=== PATIENT | male | born 1960 | race Caucasian/White ===

== ENCOUNTER 2018-03-11 12:09 | Emergency (ER) | payer MEDICARE, SELFPAY ==
[2018-03-11] VITALS (8 sets, daily range): BP systolic 133–158; BP diastolic 99–108; PULSE 91–103; RESP 12–22; TEMP 37; O2SAT 96–99; BMI 29.5
--- NOTE | 2018-03-11 12:26 | RAD_ITS ---
STUDY: X-RAY CHEST REASON FOR EXAM: Male, 58 years old. Chest pain. TECHNIQUE: Single AP portable view of the chest. COMPARISON: None. FINDINGS: The lungs are clear and expanded. There is no demonstrated pleural abnormality. Normal size heart. Normal mediastinum and lisy. Normal visualized pulmonary arteries. Normal visualized aortic arch and descending thoracic aorta. Normal visualized thoracic spine. Normal visualized ribs, clavicles, and shoulders. There is no demonstrated abnormality of the visualized soft tissue structures of the upper abdomen. RAD/Chest 1 View (Portable) IMPRESSION: Normal x-ray examination of the chest. Electronically Signed: Mckay Cody MD at 12:39 EST , Service support ,
--- NOTE | 2018-03-11 12:26 | EKG12_ITS ---
Test Reason : CHEST PAIN Blood Pressure : / mmHG Vent. Rate : 097 BPM Atrial Rate : 098 BPM P-R Int : 146 ms QRS Dur : 086 ms QT Int : 364 ms P-R-T Axes : 067 -43 047 degrees QTc Int : 462 ms Normal sinus rhythm Premature ventricular complexes Left axis deviation Abnormal ECG Confirmed by LAQUITA TRUJILLO, JEWEL ([id number]), commercial production editor MARK FARNSWORTH ([id number]) on 03/12/2018 9:02:35 AM Referred By: FINA Confirmed By:JEWEL COELHO MD
[2018-03-11] MEDS: Aspirin 81 MG TAB.CHEW 324 MG PO (12:35)
[2018-03-11] MEDS: Ipratropium/Albuterol Sulfate 3 ML AMPUL.NEB INHALATION (12:43)
[2018-03-11 12:51] LABS: Anion Gap 8 (5-15); BUN 6 mg/dL (7-18); BUN/Creat Ratio 5.3 RATIO (10-20); Calcium,Total 8.3 mg/dL (8.5-10.1); Chloride 106 mmol/L (98-107); Creatinine, Serum 1.13 mg/dL (0.70-1.30); EST Glomerular Filtration Rate 71 mL/min (>60); Est Glom Filt Rate - Afr Amer 85 mL/min (>60); Estimated Creatinine Clearance 70.39 ml/min; Glucose 137 mg/dL (74-106); Potassium 3.2 mmol/L (3.5-5.1); Sodium Level 144 mmol/L (136-145)
[2018-03-11 13:03] LABS: Absolute Lymphocyte Count 1.92 X10^3/ul (0.83-4.51); Absolute Neutrophil Count 8.7 X10^3/uL (2.0-7.7); Basophil# 0.06 X10^3/uL; Basophil% 0.5 % (0-1); Eosinophil# 0.18 X10^3/uL; Eosinophils% 1.5 % (0-5); Hematocrit 50.5 % (40-54); Hemoglobin 15.6 g/dl (13.0-16.5); Lymphocyte # 1.92 X10^3/ul (4.0); Lymphocyte % 16.4 % (19-41); Mean Corp Hgb Conc 30.9 g/gl (32-36); Mean Corpuscular Hgb 28.8 pg (27.0-32.0); Mean Corpuscular Volume 93.2 fL (80-94); Mean Platelet Vol. 9.8 fl (6.2-12.0); Monocyte# 0.82 X10^3/uL; Neutrophil % 74.5 % (47-70); POSITIVE COUNT NO; POSITIVE DIFFERENTIAL NO; POSITIVE MORPHOLOGY NO; Platelet Count 235 K/mm3 (150-450); RBC Distribution Width CV 17.6 % (11.6-14.6); RBC Distribution Width SD 58.1 fl (35.1-43.9); Red Blood Count 5.42 M/mm3 (4.6-6.2); White Blood Count 11.7 K/mm3 (4.4-11.0)
[2018-03-11 13:18] LABS: D-Dimer Quantitative (DVT/PE) 0.73 FEU/ug/m (0.27-0.49)
--- NOTE | 2018-03-11 13:24 | CT_ITS ---
STUDY: CTA CHEST REASON FOR EXAM: Male, 58 years old. Chest pain. COPD. Portable RADIATION DOSAGE (If Supplied By Facility): CTDIvol = ( 14.19 ) mGy, DLP = ( 712.00 ) mGycm TECHNIQUE: The examination was performed with the intravenous administration of 100ml ml of Isovue 370 contrast material. Post-processing of the angiographic images was performed, with multiplanar reformation and 3D reconstruction. Individualized dose optimization techniques were used for this CT. COMPARISON: None. FINDINGS: Normal enhancement of the main pulmonary artery and right and left pulmonary arteries. Normal enhancement of the bilateral peripheral pulmonary arteries. There is no demonstrated pulmonary embolism. Normal thoracic aorta and visualized great vessels. There is no demonstrated aortic dissection. Normal heart and pericardium. Normal mediastinum. Normal hilar regions. Normal visualized trachea and bronchi. The lungs are moderately hyper expanded, with flattening of the hemidiaphragms. There is evidence for mild centrilobular emphysema. There are no infiltrates. There is an 8 mm indeterminate nodule in the medial aspect of the superior segment of the left lower lobe. This needs further evaluation and follow-up. It can be seen on axial image 164 of series 2. Normal pleura. There are no pleural effusions. Normal chest wall structures. Subacute subacute nondisplaced fractures are seen of the anterior aspect of the right eighth and ninth ribs. Normal visualized upper abdomen. CT/CTA Chest W/WO Contrast IMPRESSION: Normal CTA chest examination, without a demonstrated pulmonary embolism or arterial dissection. Mild to moderate COPD. 8 mm indeterminate nodule of the left upper lobe. Suggest short interval follow-up in 3-4 months. Electronically Signed: Mckay Cody MD at 14:43 EST , Service support ,
--- NOTE | 2018-03-11 13:51 | CM.ED ---
Social Work Note Referral from Mica Esteban RN, for homelessness. Introduced self and role at [facility]. The pt reports to be living at [facility] in [place]. He has been there since Friday 03/09. Reports that he can only stay two more weeks. Claims that he and his girlfriend split up and they were living in [place], [place] and that's why he is now homeless. States that his mother lives locally in [place], but he cannot stay with her. Reports that he had lived in her back yard in a camper all summer until that did not work out any longer. The pt is not working, but receives disability of $1300/month. He also has Medicare. With this income would not qualify for Medicaid. Did encourage him to go to [facility] and discuss [facility] [place] as he is without housing. States that he intends to. Pt reports a hx of Anxiety and Depression, is on Klonopin and Celexa that are prescribed through his PCP. Denies and counseling and declines services at this time. His preferred pharmacy is [email or web address]. Pt does have a CPAP and reports that the tubing is damaged. Encourage him to seek out the company he received it from to assist. Understanding expressed. No further needs at this time. PLAN: Return to [facility] at discharge. ELENA Clinton, SERGIO
--- NOTE | 2018-03-11 15:40 | ED.VISSUMM ---
- ER Visit Summary Date of Service: 03/11/18 Chief Complaint: Chest pain History of Present Illness: The patient is a 58 M who states that approximately 1 hour prior to arrival he developed chest pain. Described as a tightness/pain in the midsternal region. He notes he felt sweaty but not short of breath denies any nausea. He states that the time of onset he was just sitting in his truck. He has been having hot flashes. He states he has had similar episodes in the past and was told it was a COPD. He reports he had a cardiac cath 3-4 years ago at an outside hospital and was told that it was negative. He continues to smoke. Previous medical problems include COPD hypertension GERD sleep apnea fatty liver anxiety depression. He denies a history of hypercholesterolemia. Physical Examination: Afebrile vital signs are stable Gen: Well-nourished well-developed Head: Normocephalic atraumatic Eyes: Perrl EOMI ENT: TMs clear no rhinorrhea moist mucous membranes Neck: Supple no lymphadenopathy no JVD nontender CVS: Regular rate rhythm no murmurs normal S1-S2 Respiratory: No distress expiratory wheeze bilaterally chest nontender Abdomen: Soft nontender nondistended normal bowel sounds no masses Back: Nontender Extremity: Nontender no edema Skin: Normal color no rash Neuro: alert orientated ?3 CN II-XII intact normal strength sensation reflexes gait cerebellar Psych: Normal affect normal mood Test Results: EKG shows a sinus rhythm at a rate of 97 with PVC. Troponin negative. Chemistry is negative. D-dimer is elevated 0.73. CT Cassidy of the chest was negative for PE or dissection. Delta troponin was obtained. Emergency Department Course and Treatment: Patient received a breathing treatment. He states that this did help. TERRENCE score of 0. No risk factors of hypertension and smoking noted. Patient will be started on prednisone. He is to use his albuterol inhaler today and tomorrow every 3-4 hours. Impression: 1. Chest pain 2. Bronchospasm This note was generated with [employer] dictation software. It may contain incorrect words, spelling, and punctuation that were not noted in review of the chart prior to signing ED Disposition - Plan for ED Patient: Disposition: Home or Assisted Living Chief Complaint: Chest Pain Instructions: ED COPD Flare Prescriptions: predniSONE tablet 40 mg PO DAILY #10 tab Referrals: Lakhwinder Lerner MD [Primary Care Provider] - 3-5 Days if not improving
== END 2018-03-11 16:33 | disposition home or self-care (01) ==
PROVIDERS: Emergency Provider Emergency Medicine; Family Provider Family Medicine; PCP Family Medicine
DX: R07.9 Chest pain, unspecified (principal); J98.01 Acute bronchospasm; I49.3 Ventricular premature depolarization; I10 Essential (primary) hypertension; J44.9 Chronic obstructive pulmonary disease, unspecified; F32.9 Major depressive disorder, single episode, unspecified; F41.9 Anxiety disorder, unspecified; F17.200 Nicotine dependence, unspecified, uncomplicated; Z79.899 Other long term (current) drug therapy
CPT/HCPCS: 71045; 71275; 80048; 84484; 85025; 85379; 93005; 94640; 99285; Q9967; A4216

== ENCOUNTER 2018-08-22 07:37 | Inpatient (IN) | payer MEDICARE, SELFPAY ==
[2018-03-11 12:10] VITALS: BMI 29.5
[2018-08-22] VITALS (14 sets, daily range): BP systolic 130–143; BP diastolic 81–96; PULSE 80–109; RESP 18–24; TEMP 36.2–37.3; O2SAT 91–98; BMI 28.9; BMI 28.5; BMI 87.8
--- NOTE | 2018-08-22 07:55 | EKG12_ITS ---
Test Reason : SOB Blood Pressure : / mmHG Vent. Rate : 080 BPM Atrial Rate : 080 BPM P-R Int : 142 ms QRS Dur : 080 ms QT Int : 386 ms P-R-T Axes : 024 -34 029 degrees QTc Int : 445 ms Normal sinus rhythm Left axis deviation Abnormal ECG Confirmed by MAGGI ROMANO ([id number]), editor farm journal SUSY WEBB ([id number]) on 08/29/2018 8:54:33 AM Referred By: FELIX Confirmed By:MAGGI ROMANO
[2018-08-22] MEDS: Albuterol 2.5 MG/3 ML VIAL.NEB. INHALATION ×4 (08:08→09:42)
[2018-08-22] MEDS: Ipratropium/Albuterol Sulfate 3 ML AMPUL.NEB INHALATION ×4 (08:08→23:45)
--- NOTE | 2018-08-22 08:09 | ED.DCSUM_ITS ---
- ER Visit Summary Date of Service: 08/22/18 Chief Complaint: Shortness of breath History of Present Illness: The patient is a 58 M with shortness of breath, cough, wheezing that started yesterday. He does have a history of COPD. He is a smoker. Patient states he is supposed to be on home oxygen but does not have any nasal cannula as he has not worn oxygen for several months. He states he is been homeless until recently. He denies chest pain. He denies fever but has had some chills. He has not been on steroids for his breathing in at least a year. Physical Examination: Blood pressure is 137/96, temperature 97.1, heart rate 108, respiratory rate 20, pulse ox 91% on room air. The time of my examination his heart rate is 85 with an O2 sat of 97% on 2 L. Patient sitting upright in bed no acute distress. He speaking full sentences. Heart is regular rate and rhythm. Lung sounds are with expiratory wheezes throughout. Abdomen is soft and nontender. Lower extremity examination was no calf tenderness or edema. Test Results: Two-view chest x-ray shows hyperinflation. Lungs are clear. EKG is sinus 80 with no acute ischemia. CBC and chemistry studies normal. Emergency Department Course and Treatment: Patient was given Solu-Medrol and aerosols. On repeat evaluation he continued to have tight expiratory wheezes throughout. He was given 2 additional albuterol treatments. At this time patient's O2 sat is 89 to 90% on 2 L nasal cannula. He is bumped up to 3 L. He continues to have wheezes. He will be admitted for COPD exacerbation. He did receive oral doxycycline. Treatment Plan: [] Disposition: Admit Impression: 1. COPD exacerbation This note was generated with [employer] software. It may contain incorrect words, spelling, and punctuation that were not noted in review of the chart prior to signing ED Disposition - Plan for ED Patient: Referrals: Lakhwinder Lerner MD [NON-STAFF] -
--- NOTE | 2018-08-22 08:28 | RAD_ITS ---
STUDY: X-RAY CHEST REASON FOR EXAM: Male, 58 years old. Cough. Shortness of breath/dyspnea. TECHNIQUE: PA and lateral views of the chest. COMPARISON: Comparison is made with prior study dated March 11, 2018. FINDINGS: Hyperinflation. The lungs are clear. There is no demonstrated pleural abnormality. Normal size heart. Normal mediastinum and lisy. Normal visualized pulmonary arteries. There is atherosclerotic tortuosity of the aortic arch and descending thoracic aorta. There is demineralization of the osseous structures. Normal visualized ribs, clavicles, and shoulders. There is no demonstrated abnormality of the visualized soft tissue structures of the upper abdomen. RAD/Chest PA and Lateral IMPRESSION: Hyperinflation. The lungs are clear. Electronically Signed: Rahul Plunkett, at 8:53 EDT , Service support ,
[2018-08-22 08:40] LABS: Absolute Neutrophil Count 6.4 X10^3/uL (2.0-7.7); Basophil# 0.11 X10^3/uL; Basophil% 1.2 % (0-1); Eosinophil# 0.55 X10^3/uL; Eosinophils% 5.9 % (0-5); Hemoglobin 16.2 g/dl (13.0-16.5); Lymphocyte % 9.7 % (19-41); Mean Corp Hgb Conc 33.1 g/gl (32-36); Mean Corpuscular Hgb 29.1 pg (27.0-32.0); Mean Corpuscular Volume 88.1 fL (80-94); Mean Platelet Vol. 9.3 fl (6.2-12.0); Neutrophil # 6.43 X10^3/uL (2.7-7.7); Neutrophil % 69.1 % (47-70); Platelet Count 213 K/mm3 (150-450); RBC Distribution Width CV 15.7 % (11.6-14.6); RBC Distribution Width SD 49.6 fl (35.1-43.9); Red Blood Count 5.56 M/mm3 (4.6-6.2); White Blood Count 9.3 K/mm3 (4.4-11.0)
[2018-08-22 08:44] LABS: POSITIVE COUNT NO; POSITIVE DIFFERENTIAL NO; POSITIVE MORPHOLOGY NO
[2018-08-22] MEDS: MethylPREDNISolone 125 MG/2 ML Vial IV (08:46)
[2018-08-22 08:48] LABS: Anion Gap 3 (5-15); BUN 9 mg/dL (7-18); BUN/Creat Ratio 7.6 RATIO (10-20); Calcium,Total 8.4 mg/dL (8.5-10.1); Chloride 105 mmol/L (98-107); Creatinine, Serum 1.19 mg/dL (0.70-1.30); EST Glomerular Filtration Rate 66 mL/min (>60); Est Glom Filt Rate - Afr Amer 80 mL/min (>60); Estimated Creatinine Clearance 66.84 ml/min; Glucose 97 mg/dL (74-106); Potassium 4.2 mmol/L (3.5-5.1); Sodium Level 139 mmol/L (136-145)
[2018-08-22] MEDS: Doxycycline 100 MG CAPSULE PO (09:35)
--- NOTE | 2018-08-22 10:05 | CPS ---
alb x2 given at this time.
[2018-08-22] MEDS: Ondansetron 4 MG/2 ML Vial IV (10:25)
--- NOTE | 2018-08-22 11:18 | HP.PCM_ITS ---
Problem List (1) COPD exacerbation Status: Acute (2) COPD (chronic obstructive pulmonary disease) Status: Chronic (3) GERD (gastroesophageal reflux disease) Status: Chronic (4) Tobacco dependence Status: Chronic History of Present Illness Date of Admission: 08/22/18 Chief Complaint: Shortness of breath The patient is a 58 year old M with history symptom for chronic obstructive pulmonary disease noncompliant with treatment due to patient being homeless for months presents with shortness of breath. Patient in addition to the shortness of breath reports nonproductive cough as well as wheezing. Patient states symptoms started 2 days prior to his admission and has gotten progressively worse. Was seen and managed in the emergency department with breathing treatment his condition however did not improve decision was therefore made to admit patient for subsequent evaluation Past Medical History Past Medical History (Chronic Problems): Chronic Problems COPD (chronic obstructive pulmonary disease) (Chronic) GERD (gastroesophageal reflux disease) (Chronic) Tobacco dependence (Chronic) Allergies No Known Allergies Allergy (Verified 08/22/18 07:37) Home Medications: Ambulatory Orders Medication Instructions Recorded Omeprazole 40 mg PO DAILY 08/22/18 Smoking Status: Current every day smoker - *Family History Paternal History Items: Cancer - from lung cancer, Heart Disease Review of Systems Constitutional: Denies: Anorexia, Chills, Fever, Night Sweats, Weight Change HEENT: Denies: Head Aches, Sinus Congestion, Sinus Drainage Cardiovascular: Denies: Chest Pain, Orthopnea, Palpitations, Paroxysmal Noc. Dyspnea Respiratory: Reports: Cough, Shortness of Breath, Wheezing Gastrointestinal: Denies: Abdominal Pain, Hematemesis, Hematochezia, Nausea, Melena, Vomiting Genitourinary: Denies: Dysuria, Frequency, Hematuria, Urgency Musculoskeletal: Denies: Joint Pain, Joint Tenderness Skin: Denies: Rash Neurological: Denies: Focal weakness, Numbness, Tingling Psychiatric: Denies: Homicidal Ideations, Suicidal Ideations Hematologic/ Lymphatic: Denies: Easy Bruising, Easy Bleeding VTE Information - Inpt Only VTE Present on Admission: No VTE Mechan Device Prophylaxis: Knee High RUTHIE Hose VTE Pharm Prophylaxis ordered?: Yes Patient Problems: Active and Suspected Problems COPD exacerbation (Acute) Objective: GENERAL: cooperative HEENT: Atraumatic; EYES; Anicteric, Normal Conjunctiva NECK; supple, normal thyroid, RESPIRATORY: Diminished to auscultation bilaterally, occasional wheezes CARDIOVASCULAR: Regular S1 S2, no audible murmurs GI: soft, non-tender, normoactive bowel sounds, : No Renal angle tenderness; EXTREMITIES: No edema, no clubbing, no cyanosis. MUSCULOSKELETAL: No Joint Tenderness; no muscle waisting NEURO: Awake; no lateralizing signs. SKIN: No Rash PSYCH; Normal affect - Physical Exam Vital Signs Temp Pulse Resp BP Pulse Ox 98.2 F 109 H 24 H 143/92 H 96 08/22/18 11:11 08/22/18 11:11 08/22/18 11:11 08/22/18 11:11 08/22/18 11:11 Oxygen Flow Rate (L/min) 2 Oxygen Delivery Method Nasal Cannula Weight: 88.8 kg Body Mass Index (BMI) 28.9 Laboratory Tests Past 24 Hrs 08/22/18 08/22/18 08:20 08:20 WBC 9.3 RBC 5.56 Hgb 16.2 Hct 49.0 MCV 88.1 MCH 29.1 MCHC 33.1 RDW 15.7 H RDW Differential 49.6 H Plt Count 213 MPV 9.3 Immature Gran % (Auto) 0.100 Neut % (Auto) 69.1 Lymph % (Auto) 9.7 L Burnet % (Auto) 14.0 H Eos % (Auto) 5.9 H Baso % (Auto) 1.2 H Absolute Neuts (auto) 6.4 Absolute Lymphs (auto) 0.90 Total Counted Not Reportable Sodium 139 Potassium 4.2 Chloride 105 Carbon Dioxide 31.0 Anion Gap 3 L BUN 9 Creatinine 1.19 Estim Creat Clear Calc 66.84 Est GFR (MDRD) Af Amer 80 Est GFR (MDRD) Non-Af 66 BUN/Creatinine Ratio 7.6 L Glucose 97 Calcium 8.4 L Assessment/Plan All Active Problems COPD exacerbation (Acute) Patient is a 58-year-old gentleman presented with shortness of breath 1. Acute respiratory insufficiency secondary to COPD with acute exacerbation 2. COPD with acute exacerbation. Admitted to the regular nursing floor managed with aerosol treatment, systemic steroids, antibiotics with azithromycin as well as supplemental oxygen titrated to keep oxygen saturation greater than 90 3. Tobacco dependence counseled on cessation, offered nicotine patch for tobacco cravings 4. GERD patient is on PPI 5. Medical noncompliance patient counseled on the need to be compliant with his medication therapy 6. [facility] prophylaxis [facility] Code Visit OBSV E&M: 46404 Initial observation care L3
--- NOTE | 2018-08-22 11:50 | CASEMGMT ---
RN CM Assessment Introduced role of RN CM to patient.? Patient is alert, oriented and able?to participate in RN CM Assessment. ?Care providers, pharmacy, and demographics verified. Presentation: SOB, Cough, Wheezing- started yesterday. +COPD, +Smoker. Admit Dx: COPD Re-Admit: No Barriers/Issues: Patient states was homeless x3 months ago, has been at current apartment x3 months. [facility]. States Some Equipment like Nebulizer in [facility] with [facility]. States PCP and other Specialist far and needs to establish Rheumatoid and Chemist [employer] here. PCP: Has an appointment with a new PCP next week at [place], Not sure which provider he will be seeing. Specialists: Pulm- Dr Bebo Sig[place], [place]. Preferred [facility]acy[facility] Insurance: [employer] [facility] PPO Rx Benefit:?Yes LNOK: Mother Shantelle Black LW/HPOA: No, Would like information Living Arrangements:? Lives alone in a apartment with 2 steps to enter ADL?s: Independent with ambulates and ADL's Transportation: Patient drives and drove self to hospital, plans to drive self on DC DME: Home O2 prn (unsure how many liters as it has been awhile since wearing it, states thinks company is called [employer]- [facility])- per google search located at [address] [place] [id number] [address][phone]) States glass bottle to it is broken and does not have the Nasal Cannula for it. CPAP, WC- states does not use but is packed away somewhere, Nebulizer-currently with Ex. HHC: None SNF: None Goal: Home, does not think gabbi need anything DC PLAN: Home with possible Home O2- may need CM coordination to get all parts to work and may need portable tank. Patient also states that he needs another order for his CPAP machine, states that he believes that he may need another sleep study done. Mica South RNCM
[2018-08-22 12:07] LABS: D-Dimer Quantitative (DVT/PE) < 0.27 FEU/ug/m (0.27-0.49)
[2018-08-22 12:56] LABS: BNP,B-Type NATRIURETIC PEPTIDE 51.6 pg/mL (0-100)
[2018-08-22] MEDS: Acetaminophen 325 MG Tablet 650 MG PO (20:07)
[2018-08-22] MEDS: guaiFENesin 1,200 MG Tablet 1200 MG PO (22:42)
[2018-08-22] MEDS: MELATONIN 3 MG TABLET PO (22:55)
[2018-08-23] VITALS (11 sets, daily range): BP systolic 124–136; BP diastolic 78–92; PULSE 71–97; RESP 16–20; TEMP 36.6–36.9; O2SAT 93–99
[2018-08-23] MEDS: Ipratropium/Albuterol Sulfate 3 ML AMPUL.NEB INHALATION ×6 (03:53→22:29)
[2018-08-23 06:01] LABS: Anion Gap 6 (5-15); BUN 14 mg/dL (7-18); BUN/Creat Ratio 10.8 RATIO (10-20); Calcium,Total 8.6 mg/dL (8.5-10.1); Chloride 104 mmol/L (98-107); EST Glomerular Filtration Rate 60 mL/min (>60); Est Glom Filt Rate - Afr Amer 73 mL/min (>60); Estimated Creatinine Clearance 61.18 ml/min; Glucose 179 mg/dL (74-106); Potassium 4.4 mmol/L (3.5-5.1); Sodium Level 140 mmol/L (136-145)
[2018-08-23 06:03] LABS: Absolute Neutrophil Count 11.9 X10^3/uL (2.0-7.7); Basophil# 0.01 X10^3/uL; Basophil% 0.1 % (0-1); Hematocrit 46.2 % (40-54); Lymphocyte % 3.9 % (19-41); Mean Corp Hgb Conc 32.5 g/gl (32-36); Mean Corpuscular Volume 86.4 fL (80-94); Mean Platelet Vol. 9.5 fl (6.2-12.0); Monocyte# 0.47 X10^3/uL; Monocyte% 3.6 % (0-10); Neutrophil # 11.91 X10^3/uL (2.7-7.7); Neutrophil % 92.2 % (47-70); Platelet Count 244 K/mm3 (150-450); RBC Distribution Width CV 15.7 % (11.6-14.6); RBC Distribution Width SD 49.4 fl (35.1-43.9); Red Blood Count 5.35 M/mm3 (4.6-6.2); White Blood Count 12.9 K/mm3 (4.4-11.0)
[2018-08-23 06:05] LABS: Differential Indicated SCAN CRITERIA MET; POSITIVE COUNT NO; POSITIVE DIFFERENTIAL YES; POSITIVE MORPHOLOGY NO
--- NOTE | 2018-08-23 08:09 | PCM.PN.HOSP ---
Patient Problems: Active and Suspected Problems COPD exacerbation (Acute) Subjective: Patient is a 58-year-old gentleman with history of tobacco dependence COPD noncompliant with therapy due to financial difficulties presented with shortness of breath and assessment of COPD with acute exacerbation was made admitted to regular nursing for further management patient still complains of difficulty breathing at rest. Physical examination demonstrates a significant wheeze Objective: GENERAL: cooperative HEENT: Atraumatic; EYES; Anicteric, Normal Conjunctiva NECK; supple, normal thyroid, RESPIRATORY: Diminished to auscultation bilaterally, with wheezes CARDIOVASCULAR: Regular S1 S2, no audible murmurs GI: soft, non-tender, normoactive bowel sounds, : No Renal angle tenderness; EXTREMITIES: No edema, no clubbing, no cyanosis. MUSCULOSKELETAL: No Joint Tenderness; NEURO: Awake; no lateralizing signs. SKIN: No Rash PSYCH; Normal affect Vitals/I&O's: Vital Signs Temp Pulse Resp BP Pulse Ox 97.9 F 71 16 131/80 H 96 08/23/18 05:00 08/23/18 05:00 08/23/18 05:00 08/23/18 05:00 08/23/18 05:00 Oxygen Flow Rate (L/min) 2 Oxygen Delivery Method Nasal Cannula Weight: 87.8 kg Body Mass Index (BMI) 28.5 Intake and Output for Last 24 Hours 08/21/18 08/22/18 08/23/18 23:59 23:59 23:59 Intake Total 1000 / 1000 350 / 350 Balance 1000 / 1000 350 / 350 Microbiology Past 72 Hours 08/22/18 12:45 Sputum, Expectorated/Coughed Gram Stain - Final Laboratory Results 08/22/18 08:20: WBC 9.3, RBC 5.56, Hgb 16.2, Hct 49.0, MCV 88.1, MCH 29.1, MCHC 33.1, RDW 15.7 H, RDW Differential 49.6 H, Plt Count 213, MPV 9.3, Immature Gran % (Auto) 0.100, Neut % (Auto) 69.1, Lymph % (Auto) 9.7 L, Stanly % (Auto) 14.0 H, Eos % (Auto) 5.9 H, Baso % (Auto) 1.2 H, Absolute Neuts (auto) 6.4, Absolute Lymphs (auto) 0.90, Total Counted Not Reportable 08/22/18 08:20: Sodium 139, Potassium 4.2, Chloride 105, Carbon Dioxide 31.0, Anion Gap 3 L, BUN 9, Creatinine 1.19, Estim Creat Clear Calc 66.84, Est GFR (MDRD) Af Amer 80, Est GFR (MDRD) Non-Af 66, BUN/Creatinine Ratio 7.6 L, Glucose 97, Calcium 8.4 L 08/22/18 08:20: B-Natriuretic Peptide 51.6 08/22/18 08:26: D-Dimer Quant (PE/DVT) < 0.27 L 08/23/18 05:20: WBC 12.9 H, RBC 5.35, Hgb 15.0, Hct 46.2, MCV 86.4, MCH 28.0, MCHC 32.5, RDW 15.7 H, RDW Differential 49.4 H, Plt Count 244, MPV 9.5, Immature Gran % (Auto) 0.200, Neut % (Auto) 92.2 H, Lymph % (Auto) 3.9 L, Stanly % (Auto) 3.6, Eos % (Auto) 0.0, Baso % (Auto) 0.1, Absolute Neuts (auto) 11.9 H, Absolute Lymphs (auto) 0.50 L, Total Counted Not Reportable 08/23/18 05:20: Sodium 140, Potassium 4.4, Chloride 104, Carbon Dioxide 30.0, Anion Gap 6, BUN 14, Creatinine 1.30, Estim Creat Clear Calc 61.18, Est GFR (MDRD) Af Amer 73, Est GFR (MDRD) Non-Af 60, BUN/Creatinine Ratio 10.8, Glucose 179 H, Calcium 8.6 Current Medications Acetaminophen (Tylenol) 650 mg PO Q6H PRN PRN PRN Reason: Mild Pain (1-3)/Temp > 100.7 F Last Admin: 08/22/18 20:07 Dose: 650 mg Al Hydroxide/Mg Hydroxide (Mylanta Ii) 30 ml PO Q6H PRN PRN PRN Reason: Gastric Burning Albuterol Sulfate (Ventolin Aerosols) 2.5 mg INHALATION Q2H PRN PRN PRN Reason: SHORTNESS OF BREATH Albuterol/Ipratropium (Duoneb) 3 ml INHALATION Q4H.RT [facility] Last Admin: 08/23/18 07:22 Dose: 3 ml Enoxaparin Sodium (Lovenox) 40 mg SC DAILY@1000 [facility] Guaifenesin (Mucinex) 1,200 mg PO BID [facility] Last Admin: 08/22/18 22:42 Dose: 1,200 mg Azithromycin 500 mg/ Dextrose 255 mls @ 250 mls/hr IV Q24 [facility] Stop: 08/24/18 11:02 Last Admin: 08/22/18 13:55 Dose: 250 mls/hr Melatonin (Melatonin) 3 mg PO QHS PRN PRN PRN Reason: INSOMNIA Last Admin: 08/22/18 22:55 Dose: 3 mg Methylprednisolone (Solu-Medrol) 40 mg IV Q8 [facility] Stop: 08/23/18 14:01 Last Admin: 08/23/18 05:17 Dose: 40 mg Nicotine (Nicoderm Cq (Pbkc)) 21 mg TRANSDERM. DAILY [facility] Last Admin: 08/22/18 23:14 Dose: 21 mg Nitroglycerin (Nitrostat) 0.4 mg SUBLINGUAL Q5M PRN PRN Reason: CARDIAC/CHEST PAIN Ondansetron HCl (Zofran) 4 mg IV Q8H PRN PRN PRN Reason: NAUSEA/VOMITING Oxycodone HCl (Oxyir) 10 mg PO Q4H PRN PRN PRN Reason: Moderate Pain (4-6/10) Pantoprazole Sodium (Protonix) 40 mg PO DAILY [facility] Prednisone () 40 mg PO DAILY@0800 [facility] Promethazine HCl (Phenergan) 25 mg IM Q6H PRN PRN PRN Reason: Breakthrough nausea/vomiting Medical Necessity - Tobacco Use Smoking Status: Current every day smoker Assessment/Plan All Active Problems COPD exacerbation (Acute) Patient is a 58-year-old gentleman presented with shortness of breath 1. Acute respiratory insufficiency secondary to COPD with acute exacerbation; not much improvement since been admitted 2. COPD with acute exacerbation. Admitted to the regular nursing floor managed with aerosol treatment, systemic steroids, antibiotics with azithromycin as well as supplemental oxygen titrated to keep oxygen saturation greater than 90 3. Tobacco dependence counseled on cessation, offered nicotine patch for tobacco cravings 4. GERD patient is on PPI 5. Medical noncompliance patient counseled on the need to be compliant with his medication therapy 6. DVT prophylaxis [place] Lovenox Code Visit OBSV E&M: 28049 Subsequent observation care L3
--- NOTE | 2018-08-23 08:15 | PN_ITS ---
Patient Problems: Active and Suspected Problems COPD exacerbation (Acute) Subjective: Patient is a 58-year-old gentleman with history of tobacco dependence COPD noncompliant with therapy due to financial difficulties presented with shortness of breath and assessment of COPD with acute exacerbation was made admitted to regular nursing for further management patient still complains of difficulty breathing at rest. Physical examination demonstrates a significant wheeze Objective: GENERAL: cooperative HEENT: Atraumatic; EYES; Anicteric, Normal Conjunctiva NECK; supple, normal thyroid, RESPIRATORY: Diminished to auscultation bilaterally, with wheezes CARDIOVASCULAR: Regular S1 S2, no audible murmurs GI: soft, non-tender, normoactive bowel sounds, : No Renal angle tenderness; EXTREMITIES: No edema, no clubbing, no cyanosis. MUSCULOSKELETAL: No Joint Tenderness; NEURO: Awake; no lateralizing signs. SKIN: No Rash PSYCH; Normal affect Vitals/I&O's: Vital Signs Temp Pulse Resp BP Pulse Ox 97.9 F 71 16 131/80 H 96 08/23/18 05:00 08/23/18 05:00 08/23/18 05:00 08/23/18 05:00 08/23/18 05:00 Oxygen Flow Rate (L/min) 2 Oxygen Delivery Method Nasal Cannula Weight: 87.8 kg Body Mass Index (BMI) 28.5 Intake and Output for Last 24 Hours 08/21/18 08/22/18 08/23/18 23:59 23:59 23:59 Intake Total 1000 / 1000 350 / 350 Balance 1000 / 1000 350 / 350 Microbiology Past 72 Hours 08/22/18 12:45 Sputum, Expectorated/Coughed Gram Stain - Final Laboratory Results 08/22/18 08:20: WBC 9.3, RBC 5.56, Hgb 16.2, Hct 49.0, MCV 88.1, MCH 29.1, MCHC 33.1, RDW 15.7 H, RDW Differential 49.6 H, Plt Count 213, MPV 9.3, Immature Gran % (Auto) 0.100, Neut % (Auto) 69.1, Lymph % (Auto) 9.7 L, Bladen % (Auto) 14.0 H, Eos % (Auto) 5.9 H, Baso % (Auto) 1.2 H, Absolute Neuts (auto) 6.4, Absolute Lymphs (auto) 0.90, Total Counted Not Reportable 08/22/18 08:20: Sodium 139, Potassium 4.2, Chloride 105, Carbon Dioxide 31.0, Anion Gap 3 L, BUN 9, Creatinine 1.19, Estim Creat Clear Calc 66.84, Est GFR (MDRD) Af Amer 80, Est GFR (MDRD) Non-Af 66, BUN/Creatinine Ratio 7.6 L, Glucose 97, Calcium 8.4 L 08/22/18 08:20: B-Natriuretic Peptide 51.6 08/22/18 08:26: D-Dimer Quant (PE/DVT) < 0.27 L 08/23/18 05:20: WBC 12.9 H, RBC 5.35, Hgb 15.0, Hct 46.2, MCV 86.4, MCH 28.0, MCHC 32.5, RDW 15.7 H, RDW Differential 49.4 H, Plt Count 244, MPV 9.5, Immature Gran % (Auto) 0.200, Neut % (Auto) 92.2 H, Lymph % (Auto) 3.9 L, Bladen % (Auto) 3.6, Eos % (Auto) 0.0, Baso % (Auto) 0.1, Absolute Neuts (auto) 11.9 H, Absolute Lymphs (auto) 0.50 L, Total Counted Not Reportable 08/23/18 05:20: Sodium 140, Potassium 4.4, Chloride 104, Carbon Dioxide 30.0, Anion Gap 6, BUN 14, Creatinine 1.30, Estim Creat Clear Calc 61.18, Est GFR ( RD) Af Amer 73, Est GFR (MDRD) Non-Af 60, BUN/Creatinine Ratio 10.8, Glucose 179 H, Calcium 8.6 Current Medications Acetaminophen (Tylenol) 650 mg PO Q6H PRN PRN PRN Reason: Mild Pain (1-3)/Temp > 100.7 F Last Admin: 08/22/18 20:07 Dose: 650 mg Al Hydroxide/Mg Hydroxide (Mylanta Ii) 30 ml PO Q6H PRN PRN PRN Reason: Gastric Burning Albuterol Sulfate (Ventolin Aerosols) 2.5 mg INHALATION Q2H PRN PRN PRN Reason: SHORTNESS OF BREATH Albuterol/Ipratropium (Duoneb) 3 ml INHALATION Q4H.RT [facility] Last Admin: 08/23/18 07:22 Dose: 3 ml Enoxaparin Sodium (Lovenox) 40 mg SC DAILY@1000 [facility] Guaifenesin (Mucinex) 1,200 mg PO BID [facility] Last Admin: 08/22/18 22:42 Dose: 1,200 mg Azithromycin 500 mg/ Dextrose 255 mls @ 250 mls/hr IV Q24 [facility] Stop: 08/24/18 11:02 Last Admin: 08/22/18 13:55 Dose: 250 mls/hr Melatonin (Melatonin) 3 mg PO QHS PRN PRN PRN Reason: INSOMNIA Last Admin: 08/22/18 22:55 Dose: 3 mg Methylprednisolone (Solu-Medrol) 40 mg IV Q8 [facility] Stop: 08/23/18 14:01 Last Admin: 08/23/18 05:17 Dose: 40 mg Nicotine (Nicoderm Cq (Pbkc)) 21 mg TRANSDERM. DAILY [facility] Last Admin: 08/22/18 23:14 Dose: 21 mg Nitroglycerin (Nitrostat) 0.4 mg SUBLINGUAL Q5M PRN PRN Reason: CARDIAC/CHEST PAIN Ondansetron HCl (Zofran) 4 mg IV Q8H PRN PRN PRN Reason: NAUSEA/VOMITING Oxycodone HCl (Oxyir) 10 mg PO Q4H PRN PRN PRN Reason: Moderate Pain (4-6/10) Pantoprazole Sodium (Protonix) 40 mg PO DAILY [facility] Prednisone () 40 mg PO DAILY@0800 [facility] Promethazine HCl (Phenergan) 25 mg IM Q6H PRN PRN PRN Reason: Breakthrough nausea/vomiting Medical Necessity - Tobacco Use Smoking Status: Current every day smoker Assessment/Plan All Active Problems COPD exacerbation (Acute) Patient is a 58-year-old gentleman presented with shortness of breath 1. Acute respiratory insufficiency secondary to COPD with acute exacerbation; not much improvement since been admitted 2. COPD with acute exacerbation. Admitted to the regular nursing floor managed with aerosol treatment, systemic steroids, antibiotics with azithromycin as well as supplemental oxygen titrated to keep oxygen saturation greater than 90 3. Tobacco dependence counseled on cessation, offered nicotine patch for tobacco cravings 4. GERD patient is on PPI 5. Medical noncompliance patient counseled on the need to be compliant with his medication therapy 6. DVT prophylaxis SC Lovenox Code Visit OBSV E&M: 15598 Subsequent observation care L3
[2018-08-23] MEDS: Acetaminophen 325 MG Tablet 650 MG PO (09:12)
[2018-08-23] MEDS: Enoxaparin 40 MG/0.4 ML Syringe SC (09:13)
[2018-08-23] MEDS: guaiFENesin 1,200 MG Tablet 1200 MG PO ×2 (09:14→20:48)
[2018-08-23] MEDS: Pantoprazole Sodium 40 MG Tablet PO (09:14)
--- NOTE | 2018-08-23 12:03 | CASEMGMT ---
[facility]. [facility] states that since patient has moved to [place] he is outside of their service area. NICHOL SHINE in to updated patient regarding [facility] not able to provide service. Ness is areeable to [employer], insurance preferred provider for oxygen needs if he qualifies. Patient states that he would like a new vulcanizer operator in [place] and provided information. Patient would like Dr. Keller/Herbert's office. Dr. Keller was consulted by hospitalist. NICHOL SHINE called Dr. Keller's office to schedule follow-up appt after discharge. Appt made for EDUCATIONAL ADVISOR Yanique Kramer for 09/06/18 at 1045. Patient also inquired about local uc architect. NICHOL SHINE provided information regarding Dr. Wallace's office. Patient denied further needs or concerns at this time.
--- NOTE | 2018-08-23 12:29 | CASEMGMT ---
SW met w/pt in regard to difficulty paying for medications, POA/LW, and alcohol use. Initially we spoke about LW/POA. Pt does want to complete but does not know who to put as POA. SW explained that when he knows, he can come back as an outpt and we can assist him with the papers, pt agreeable to this. SW gave him the blank form w/the SW rack card, to call and make an appointment. SW spoke w/pt about prescription costs. Pt states he does have coverage through his [employer] but still has to pay a percentage of the cost. SW gave pt information on [employer], [employer], and Extra Help through Medicare. SW also gave him number for [employer] if he wants to apply for Medicaid, if he qualifies for it. SW spoke w/pt about alcohol use, pt does not identify this as a problem, not interested in any referrals at this time. No further needs, SW available should any needs arise. KAREN Conway
--- NOTE | 2018-08-23 13:14 | PCM.CONS.PUL ---
Reason for Consult Date of Consultation: 08/23/18 Reason for Consultation: COPD exacerbation History of Present Illness: The patient is a 58-year-old male, with a history as outlined below, who presented to the emergency department on August 22 with complaints of shortness of breath and cough. The patient states that his girlfriend recently had a chest cold and that he believes he contracted whatever she had. He reports that he has known COPD of unknown severity and is currently prescribed Anoro and as needed albuterol on an outpatient basis. He recently relocated to this area from [place], outside of [place]. He does report that he was previously seen a closing manager there. However, it has been over a year. He does report having undergone pulmonary function testing previously. The patient does have an extensive smoking history of upwards of 2 packs/day x 30 years. He states that when he is at his baseline, that he utilizes his rescue inhaler 2 times per day. In addition to the aforementioned, the patient has known obstructive sleep apnea, but has been noncompliant with the use of nocturnal CPAP therapy. He does report that he is in need of being retested so that he can get new equipment. On presentation to the emergency department, the patient was noted to be afebrile, tachycardic and tachypneic. Initial laboratory evaluation revealed no evidence of a leukocytosis. D-dimer was negative. Chemistry profile was largely unrevealing. Plain film chest x-ray revealed hyperinflated lung wren without acute cardiopulmonary process. The patient was provided with aerosolized bronchodilators and IV Solu-Medrol. He was subsequently admitted to the medical surgical floor for ongoing management. To date, the patient has been maintained on bronchodilators, azithromycin and steroids. Infectious work-up has been unrevealing. Past Medical History Past Medical History (Chronic Problems): Chronic Problems COPD (chronic obstructive pulmonary disease) (Chronic) GERD (gastroesophageal reflux disease) (Chronic) Tobacco dependence (Chronic) Allergies No Known Allergies Allergy (Verified 08/22/18 07:37) Home Medications: Ambulatory Orders Medication Instructions Recorded Omeprazole 40 mg PO DAILY 08/22/18 Smoking Status: Current every day smoker - *Family History Paternal History Items: Cancer - from lung cancer, Heart Disease Review of Systems Constitutional: Denies: Chills, Fever Eyes: Denies: Blurred vision, Double vision HEENT: Denies: Head Aches, Sinus Congestion, Sinus Drainage Cardiovascular: Reports: Chest Tightness Respiratory: Reports: Cough, Shortness of Breath, Wheezing. Denies: Sputum production Gastrointestinal: Denies: Abdominal Pain, Nausea, Vomiting Genitourinary: Denies: Dysuria Musculoskeletal: Denies: Joint Pain, Joint Tenderness Skin: Denies: Rash, Wounds Neurological: Denies: Numbness, Tingling, Focal weakness Psychiatric: Denies: Anxiety, Depression, Homicidal Ideations, Suicidal Ideations Hematologic/ Lymphatic: Denies: Easy Bruising, Easy Bleeding Patient Problems: Active and Suspected Problems COPD exacerbation (Acute) Objective: The patient's most recent lab work, culture data and imaging studies have all been personally reviewed. - Physical Exam General: Alert, Oriented x3, Cooperative, No apparent distress HEENT: Atraumatic, PERRLA, Normocephalic Oral: No Gingival or Mucosal Lesions/ Ulcerations Neck: Supple, No Nodes, Trachea Midline Lungs: Diminished, - - Bilateral expiratory wheezes with prolonged expiratory phase. Cardiovascular: Regular rate, Regular Rhythm, Normal S1, Normal S2, No murmurs Abdomen: Bowel Sounds Present, Soft, Non Tender Extremities: No clubbing, No cyanosis, No edema Skin: No breakdown Musculoskeletal: No Tenderness to Palpation of Joints or Extremities Lymphatic: No Cervical, Supraclavicular, or Inguinal Adenopathy Neurological: Cranial nerves II-XII grossly intact, Neuro grossly intact Psych/Mental Status: Alert and oriented to time, place, person, mood and affect Vital Signs Temp Pulse Resp BP Pulse Ox 98.0 F 96 18 131/88 H 94 08/23/18 11:46 08/23/18 11:46 08/23/18 11:46 08/23/18 11:46 08/23/18 11:46 Oxygen Flow Rate (L/min) 2 Oxygen Delivery Method Nasal Cannula Weight: 193 lb 9.054 oz Body Mass Index (BMI) 28.5 Intake and Output for Last 24 Hours 08/21/18 08/22/18 08/23/18 23:59 23:59 23:59 Intake Total 1000 / 1000 1036 / 1036 Balance 1000 / 1000 1036 / 1036 Microbiology Past 72 Hours 08/22/18 12:45 Gram Stain - Final Sputum, Expectorated/Coughed Respiratory Culture - Preliminary Appears to be normal respiratory sammie. Further studies to follow. Laboratory Tests Past 24 Hrs 08/23/18 08/23/18 05:20 05:20 WBC 12.9 H RBC 5.35 Hgb 15.0 Hct 46.2 MCV 86.4 MCH 28.0 MCHC 32.5 RDW 15.7 H RDW Differential 49.4 H Plt Count 244 MPV 9.5 Immature Gran % (Auto) 0.200 Neut % (Auto) 92.2 H Lymph % (Auto) 3.9 L Howell % (Auto) 3.6 Eos % (Auto) 0.0 Baso % (Auto) 0.1 Absolute Neuts (auto) 11.9 H Absolute Lymphs (auto) 0.50 L Total Counted Not Reportable Sodium 140 Potassium 4.4 Chloride 104 Carbon Dioxide 30.0 Anion Gap 6 BUN 14 Creatinine 1.30 Estim Creat Clear Calc 61.18 Est GFR (MDRD) Af Amer 73 Est GFR (MDRD) Non-Af 60 BUN/Creatinine Ratio 10.8 Glucose 179 H Calcium 8.6 Clinical Impression(s) from Imaging Studies Chest X-Ray 08/22/18 08:28 IMPRESSION: Hyperinflation. The lungs are clear. Electronically Signed: Rahul Dimitrios, at 8:53 EDT , Service support , Assessment/Plan All Active Problems COPD exacerbation (Acute) RECOMMENDATIONS: 1. Check respiratory viral panel. 2. Given negative sputum culture, antibiotics can be discontinued from my perspective. 3. Continue scheduled bronchodilators and steroids. 4. Wean supplemental oxygen to maintain saturations at or above 90%. 5. Perform walking oximetry study prior to consideration for discharge from the hospital. 6. Follow-up in the pulmonary medicine clinic within 2 weeks of discharge. IMPRESSIONS: 1. Acute hypoxemic respiratory insufficiency secondary to COPD with exacerbation Most likely viral in etiology. Sputum culture has not revealed any growth to date. Given this, antibiotics can be discontinued from my perspective. We will check respiratory viral panel. Continue current supportive measures with bronchodilators and steroids. Wean supplemental oxygen as tolerated. We will obtain the patient's prior pulmonology records once he follows up in our office. He will require repeat pulmonary function studies and will likely require an escalation in his maintenance inhaler regimen to that of a triple therapy regimen. At the time of discharge, recommend steroid taper. 2. Continuous tobacco dependency The patient was counseled regarding the deleterious effects of ongoing tobacco use, including modalities which could be utilized to achieve a smoke-free lifestyle. Given the patient's age and tobacco abuse history, he would be a candidate for yearly low-dose CT scan of the chest. Orders can be placed at his follow-up office visit. 3. Personal history of obstructive sleep apnea The patient does report having undergone a sleep study previously and for period of time was prescribed nocturnal CPAP therapy with supplemental oxygen bleeding. However, he is unclear of what his prior settings were. He does report that he has been noncompliant with its use for quite some time and is in need of a new prescription. I did explain to the patient that he would likely need to undergo a re-titration study so that updated settings could be obtained and new equipment ordered. This, again, will need to be accomplished on an outpatient basis. This note was generated with [employer] dictation software. It may contain incorrect words, spelling, and punctuation that were not noted in checking the note before signing. Code Visit Inpatient E&M: 62300 Init Hosp L2
--- NOTE | 2018-08-23 13:17 | CON.PCM_ITS ---
Reason for Consult Date of Consultation: 08/23/18 Reason for Consultation: COPD exacerbation History of Present Illness: The patient is a 58-year-old male, with a history as outlined below, who presented to the emergency department on August 22 with complaints of shortness of breath and cough. The patient states that his girlfriend recently had a chest cold and that he believes he contracted whatever she had. He reports that he has known COPD of unknown severity and is currently prescribed Anoro and as needed albuterol on an outpatient basis. He recently relocated to this area from [place], outside of [place]. He does report that he was previously seen a plastic molder there. However, it has been over a year. He does report having undergone pulmonary function testing previously. The patient does have an extensive smoking history of upwards of 2 packs/day x 30 years. He states that when he is at his baseline, that he utilizes his rescue inhaler 2 times per day. In addition to the aforementioned, the patient has known obstructive sleep apnea, but has been noncompliant with the use of nocturnal CPAP therapy. He does report that he is in need of being retested so that he can get new equipment. On presentation to the emergency department, the patient was noted to be afeb rile, tachycardic and tachypneic. Initial laboratory evaluation revealed no evidence of a leukocytosis. D-dimer was negative. Chemistry profile was largely unrevealing. Plain film chest x-ray revealed hyperinflated lung wren without acute cardiopulmonary process. The patient was provided with aerosolized bronchodilators and IV Solu-Medrol. He was subsequently admitted to the medical surgical floor for ongoing management. To date, the patient has been maintained on bronchodilators, azithromycin and steroids. Infectious work-up has been unrevealing. Past Medical History Past Medical History (Chronic Problems): Chronic Problems COPD (chronic obstructive pulmonary disease) (Chronic) GERD (gastroesophageal reflux disease) (Chronic) Tobacco dependence (Chronic) Allergies No Known Allergies Allergy (Verified 08/22/18 07:37) Home Medications: Ambulatory Orders Medication Instructions Recorded Omeprazole 40 mg PO DAILY 08/22/18 Smoking Status: Current every day smoker - *Family History Paternal History Items: Cancer - from lung cancer, Heart Disease Review of Systems Constitutional: Denies: Chills, Fever Eyes: Denies: Blurred vision, Double vision HEENT: Denies: Head Aches, Sinus Congestion, Sinus Drainage Cardiovascular: Reports: Chest Tightness Respiratory: Reports: Cough, Shortness of Breath, Wheezing. Denies: Sputum production Gastrointestinal: Denies: Abdominal Pain, Nausea, Vomiting Genitourinary: Denies: Dysuria Musculoskeletal: Denies: Joint Pain, Joint Tenderness Skin: Denies: Rash, Wounds Neurological: Denies: Numbness, Tingling, Focal weakness Psychiatric: Denies: Anxiety, Depression, Homicidal Ideations, Suicidal Ideations Hematologic/ Lymphatic: Denies: Easy Bruising, Easy Bleeding Patient Problems: Active and Suspected Problems COPD exacerbation (Acute) Objective: The patient's most recent lab work, culture data and imaging studies have all been personally reviewed. - Physical Exam General: Alert, Oriented x3, Cooperative, No apparent distress HEENT: Atraumatic, PERRLA, Normocephalic Oral: No Gingival or Mucosal Lesions/ Ulcerations Neck: Supple, No Nodes, Trachea Midline Lungs: Diminished, - - Bilateral expiratory wheezes with prolonged expiratory phase. Cardiovascular: Regular rate, Regular Rhythm, Normal S1, Normal S2, No murmurs Abdomen: Bowel Sounds Present, Soft, Non Tender Extremities: No clubbing, No cyanosis, No edema Skin: No breakdown Musculoskeletal: No Tenderness to Palpation of Joints or Extremities Lymphatic: No Cervical, Supraclavicular, or Inguinal Adenopathy Neurological: Cranial nerves II-XII grossly intact, Neuro grossly intact Psych/Mental Status: Alert and oriented to time, place, person, mood and affect Vital Signs Temp Pulse Resp BP Pulse Ox 98.0 F 96 18 131/88 H 94 08/23/18 11:46 08/23/18 11:46 08/23/18 11:46 08/23/18 11:46 08/23/18 11:46 Oxygen Flow Rate (L/min) 2 Oxygen Delivery Method Nasal Cannula Weight: 193 lb 9.054 oz Body Mass Index (BMI) 28.5 Intake and Output for Last 24 Hours 08/21/18 08/22/18 08/23/18 23:59 23:59 23:59 Intake Total 1000 / 1000 1036 / 1036 Balance 1000 / 1000 1036 / 1036 Microbiology Past 72 Hours 08/22/18 12:45 Gram Stain - Final Sputum, Expectorated/Coughed Respiratory Culture - Preliminary Appears to be normal respiratory sammie. Further studies to follow. Laboratory Tests Past 24 Hrs 08/23/18 08/23/18 05:20 05:20 WBC 12.9 H RBC 5.35 Hgb 15.0 Hct 46.2 MCV 86.4 MCH 28.0 MCHC 32.5 RDW 15.7 H RDW Differential 49.4 H Plt Count 244 MPV 9.5 Immature Gran % (Auto) 0.200 Neut % (Auto) 92.2 H Lymph % (Auto) 3.9 L Snyder % (Auto) 3.6 Eos % (Auto) 0.0 Baso % (Auto) 0.1 Absolute Neuts (auto) 11.9 H Absolute Lymphs (auto) 0.50 L Total Counted Not Reportable Sodium 140 Potassium 4.4 Chloride 104 Carbon Dioxide 30.0 Anion Gap 6 BUN 14 Creatinine 1.30 Estim Creat Clear Calc 61.18 Est GFR (MDRD) Af Amer 73 Est GFR (MDRD) Non-Af 60 BUN/Creatinine Ratio 10.8 Glucose 179 H Calcium 8.6 Clinical Impression(s) from Imaging Studies Chest X-Ray 08/22/18 08:28 IMPRESSION: Hyperinflation. The lungs are clear. Electronically Signed: Rahul Dimitrios, at 8:53 EDT , Service support , Assessment/Plan All Active Problems COPD exacerbation (Acute) RECOMMENDATIONS: 1. Check respiratory viral panel. 2. Given negative sputum culture, antibiotics can be discontinued from my perspective. 3. Continue scheduled bronchodilators and steroids. 4. Wean supplemental oxygen to maintain saturations at or above 90%. 5. Perform walking oximetry study prior to consideration for discharge from the hospital. 6. Follow-up in the pulmonary medicine clinic within 2 weeks of discharge. IMPRESSIONS: 1. Acute hypoxemic respiratory insufficiency secondary to COPD with exacerbation Most likely viral in etiology. Sputum culture has not revealed any growth to date. Given this, antibiotics can be discontinued from my perspective. We will check respiratory viral panel. Continue current supportive measures with bronchodilators and steroids. Wean supplemental oxygen as tolerated. We will obtain the patient's prior pulmonology records once he follows up in our office. He will require repeat pulmonary function studies and will likely require an escalation in his maintenance inhaler regimen to that of a triple therapy regimen. At the time of discharge, recommend steroid taper. 2. Continuous tobacco dependency The patient was counseled regarding the deleterious effects of ongoing tobacco use, including modalities which could be utilized to achieve a smoke-free lifestyle. Given the patient's age and tobacco abuse history, he would be a candidate for yearly low-dose CT scan of the chest. Orders can be placed at his follow-up office visit. 3. Personal history of obstructive sleep apnea The patient does report having undergone a sleep study previously and for period of time was prescribed nocturnal CPAP therapy with supplemental oxygen bleeding. However, he is unclear of what his prior settings were. He does report that he has been noncompliant with its use for quite some time and is in need of a new prescription. I did explain to the patient that he would likely need to undergo a re-titration study so that updated settings could be obtained and new equipment ordered. This, again, will need to be accomplished on an outpatient basis. This note was generated with [employer] dictation software. It may contain incorrect words, spelling, and punctuation that were not noted in checking the note before signing. Code Visit Inpatient E&M: 54021 Init Hosp L2
[2018-08-23] MEDS: 0.9% NaCl Peripheral Flush Adult/Peds IV (15:03)
[2018-08-24] VITALS (8 sets, daily range): BP systolic 134–141; BP diastolic 91–100; PULSE 78–89; RESP 16–20; TEMP 36.7–37.1; O2SAT 93–98
[2018-08-24] MEDS: Ipratropium/Albuterol Sulfate 3 ML AMPUL.NEB INHALATION ×3 (02:10→11:14)
--- NOTE | 2018-08-24 07:37 | PCM.PN.PUL ---
Patient Problems: Active and Suspected Problems COPD exacerbation (Acute) Subjective: The patient was seen and examined at the bedside this morning. Events from the last 24 hours have been reviewed. The patient is currently afebrile, hemodynamically stable and maintaining appropriate oxygen saturations on room air at rest. The patient reports that he continues to feel crummy with continued shortness of breath and wheezing. Objective: The patient's most recent lab work, culture data and imaging studies have all been personally reviewed. Sputum culture appears to be normal respiratory sammie. Respiratory viral panel is pending. - Physical Exam General: Alert, Oriented x3, Cooperative, No apparent distress HEENT: Atraumatic, PERRLA, Normocephalic Oral: Moist Mucosa, No Gingival or Mucosal Lesions/ Ulcerations Neck: Supple, No Nodes, Trachea Midline Lungs: Diminished, Wheezes, - - Prolonged expiratory phase. Cardiovascular: Regular rate, Regular Rhythm, Normal S1, Normal S2, No murmurs Abdomen: Bowel Sounds Present, Soft, Non Tender, Non-Distended Extremities: No clubbing, No cyanosis, No edema Skin: No breakdown Musculoskeletal: No Tenderness to Palpation of Joints or Extremities Lymphatic: No Cervical, Supraclavicular, or Inguinal Adenopathy Neurological: Cranial nerves II-XII grossly intact, Neuro grossly intact Psych/Mental Status: Normal Affect, Appropriate Vital Signs Temp Pulse Resp BP Pulse Ox 98.3 F 78 18 138/91 H 98 08/24/18 02:49 08/24/18 06:58 08/24/18 06:58 08/24/18 02:49 08/24/18 06:59 Oxygen Flow Rate (L/min) 2 Oxygen Delivery Method Nasal Cannula Weight: 193 lb 9.054 oz Body Mass Index (BMI) 28.5 Intake and Output for Last 24 Hours 08/22/18 08/23/18 08/24/18 23:59 23:59 23:59 Intake Total 1000 / 1000 1536 / 1536 680 / 680 Balance 1000 / 1000 1536 / 1536 680 / 680 Microbiology Past 72 Hours 08/22/18 12:45 Gram Stain - Final Sputum, Expectorated/Coughed Respiratory Culture - Preliminary Appears to be normal respiratory sammie. Further studies to follow. Labs (Last 48 Hours) 08/22/18 08/22/18 08/22/18 08:20 08:20 08:20 WBC 9.3 RBC 5.56 Hgb 16.2 Hct 49.0 MCV 88.1 MCH 29.1 MCHC 33.1 RDW 15.7 H RDW Differential 49.6 H Plt Count 213 MPV 9.3 Immature Gran % (Auto) 0.100 Neut % (Auto) 69.1 Lymph % (Auto) 9.7 L [place] % (Auto) 14.0 H Eos % (Auto) 5.9 H Baso % (Auto) 1.2 H Absolute Neuts (auto) 6.4 Absolute Lymphs (auto) 0.90 Total Counted Not Reportable D-Dimer Quant (PE/DVT) Sodium 139 Potassium 4.2 Chloride 105 Carbon Dioxide 31.0 Anion Gap 3 L BUN 9 Creatinine 1.19 Estim Creat Clear Calc 66.84 Est GFR (MDRD) Af Amer 80 Est GFR (MDRD) Non-Af 66 BUN/Creatinine Ratio 7.6 L Glucose 97 Calcium 8.4 L B-Natriuretic Peptide 51.6 08/22/18 08/23/18 08/23/18 08:26 05:20 05:20 WBC 12.9 H RBC 5.35 Hgb 15.0 Hct 46.2 MCV 86.4 MCH 28.0 MCHC 32.5 RDW 15.7 H RDW Differential 49.4 H Plt Count 244 MPV 9.5 Immature Gran % (Auto) 0.200 Neut % (Auto) 92.2 H Lymph % (Auto) 3.9 L [place] % (Auto) 3.6 Eos % (Auto) 0.0 Baso % (Auto) 0.1 Absolute Neuts (auto) 11.9 H Absolute Lymphs (auto) 0.50 L Total Counted Not Reportable D-Dimer Quant (PE/DVT) < 0.27 L Sodium 140 Potassium 4.4 Chloride 104 Carbon Dioxide 30.0 Anion Gap 6 BUN 14 Creatinine 1.30 Estim Creat Clear Calc 61.18 Est GFR (MDRD) Af Amer 73 Est GFR (MDRD) Non-Af 60 BUN/Creatinine Ratio 10.8 Glucose 179 H Calcium 8.6 B-Natriuretic Peptide Microbiology 08/22/18 12:45 Sputum, Expectorated/Coughed Gram Stain - Final 08/22/18 12:45 Sputum, Expectorated/Coughed Respiratory Culture - Preliminary Appears to be normal respiratory sammie. Further studies to follow. Clinical Impression(s) from Imaging Studies Chest X-Ray 08/22/18 08:28 IMPRESSION: Hyperinflation. The lungs are clear. Electronically Signed: Rahul Plunkett, at 8:53 EDT , Service support , Medical Necessity - Tobacco Use Smoking Status: Current every day smoker Assessment/Plan All Active Problems COPD exacerbation (Acute) RECOMMENDATIONS: 1. Given negative sputum culture, antibiotics can be discontinued from my perspective. 2. Continue scheduled bronchodilators and steroids. Recommend prednisone taper at discharge. 3. Wean supplemental oxygen to maintain saturations at or above 90%. 4. Perform walking oximetry study prior to consideration for discharge from the hospital. 5. Follow-up in the pulmonary medicine clinic within 2 weeks of discharge. IMPRESSIONS: 1. Acute hypoxemic respiratory insufficiency secondary to COPD with exacerbation Most likely viral in etiology. Sputum culture has not revealed any growth to date. Given this, antibiotics can be discontinued from my perspective. Respiratory viral panel is pending. Continue current supportive measures with bronchodilators and steroids. Wean supplemental oxygen as tolerated. We will obtain the patient's prior pulmonology records once he follows up in our office. He will require repeat pulmonary function studies and will likely require an escalation in his maintenance inhaler regimen to that of a triple therapy regimen. At the time of discharge, recommend steroid taper. 2. Continuous tobacco dependency The patient was counseled regarding the deleterious effects of ongoing tobacco use, including modalities which could be utilized to achieve a smoke-free lifestyle. Given the patient's age and tobacco abuse history, he would be a candidate for yearly low-dose CT scan of the chest. Orders can be placed at his follow-up office visit. 3. Personal history of obstructive sleep apnea The patient does report having undergone a sleep study previously and for period of time was prescribed nocturnal CPAP therapy with supplemental oxygen bleeding. However, he is unclear of what his prior settings were. He does report that he has been noncompliant with its use for quite some time and is in need of a new prescription. I did explain to the patient that he would likely need to undergo a re-titration study so that updated settings could be obtained and new equipment ordered. This, again, will need to be accomplished on an outpatient basis. This note was generated with [employer] software. It may contain incorrect words, spelling, and punctuation that were not noted in checking the note before signing. Code Visit Inpatient E&M: 65066 Subs Hosp L2
[2018-08-24] MEDS: Pantoprazole Sodium 40 MG Tablet PO (07:58)
[2018-08-24] MEDS: predniSONE 20 MG Tablet 40 MG PO (07:58)
[2018-08-24] MEDS: guaiFENesin 1,200 MG Tablet 1200 MG PO (07:58)
--- NOTE | 2018-08-24 09:07 | DCINST_ITS ---
- Discharge Diagnoses Current Active Problems: Current Active and Chronic Problems COPD exacerbation (Acute) COPD (chronic obstructive pulmonary disease) (Chronic) GERD (gastroesophageal reflux disease) (Chronic) Tobacco dependence (Chronic) You will use the following diet at home:: Regular Your food should be the consistency of: Regular Your liquids should be the consistency of: Regular/Thin Discharge Activity: Return to Normal Activity, No Restrictions Call your doctor if you observe: Fever of 101 or Higher, Shortness of breath, Dizziness, Fainting spells, Swelling in the ankles, Chest pain, Increased palpitations (irregular heartbeat) Allergies/Adverse Reactions: Allergies No Known Allergies Allergy (Verified 08/22/18 07:37) Medications to take at Discharge Omeprazole 40 mg PO DAILY 08/22/18 predniSONE tablet 40 mg PO DAILY@0800 #20 tablet 08/24/18 The following prescriptions were given: predniSONE tablet 40 mg PO DAILY@0800 #20 tablet Primary Care Physician: Lakhwinder Lerner MD [NON-STAFF] - Please follow up with your Primary Care Physician in: 3-5 days Test Results: Test results from this visit will be discussed in further detail at your follow- up appointment, if applicable. Please Follow Up With: Marcela Kramer NP-C When: Sunday
--- NOTE | 2018-08-24 09:07 | PCM.DC.SUM ---
Discharge Date and Diagnosis - Problem List Patient Problems: Active and Suspected Problems COPD exacerbation (Acute) Date of Admission: 08/22/18 Date of Discharge: 08/24/18 - Primary Discharge Diagnosis Active and Suspected Problems COPD exacerbation (Acute) - Secondary Discharge Diagnosis Chronic Problems COPD (chronic obstructive pulmonary disease) (Chronic) GERD (gastroesophageal reflux disease) (Chronic) Tobacco dependence (Chronic) Hospital Course and Treatment Imaging Results: CXR: IMPRESSION: Hyperinflation. The lungs are clear. Consults: Pulmonology Operations: None Procedures: None Summary of Care Provided: Per HPI: The patient is a 58 year old M with history symptom for chronic obstructive pulmonary disease noncompliant with treatment due to patient being homeless for months presents with shortness of breath. Patient in addition to the shortness of breath reports nonproductive cough as well as wheezing. Patient states symptoms started 2 days prior to his admission and has gotten progressively worse. Was seen and managed in the emergency department with breathing treatment his condition however did not improve decision was therefore made to admit patient for subsequent evaluation Hospital Course: 1. Acute respiratory insufficiency secondary to COPD with an acute [id number]-old male presenting to the hospital with shortness of breath and nonproductive cough. He had a chest x-ray that demonstrated hyperinflation, and with his history of smoking has COPD. He was following a designer/writer in his previous home medication, and says that he had PFTs done there. Pulmonology was consulted to follow-up with the patient as an outpatient. He has improved since admission and would like to go home. He was taken off of his oxygen this morning, he was 94% on his ambulatory pulse ox and therefore did not need home oxygen. We will plan for prednisone 40 mg daily for 10 days. Of note he states that he will be able to afford a home albuterol today because he had one filled 2 weeks ago when he lost it. He understands the risks of going home without albuterol and is willing to take those risks. 2. His other medical diagnoses were evaluated and his home medications were continued where appropriate Patient Problems: Active and Suspected Problems COPD exacerbation (Acute) - Physical Exam General: Alert, Oriented x3, Cooperative, No apparent distress HEENT: Atraumatic, PERRLA, EOMI, Normocephalic Oral: Moist Mucosa Neck: Supple, No JVD Lungs: Normal air movement, Diminished, Wheezes Cardiovascular: Regular rate, Regular Rhythm, Normal S1, Normal S2, No murmurs Abdomen: Soft, Non Tender, Non-Distended, No Hepato-splenomegaly Extremities: No edema, Capillary Refill Less than 3 Seconds Skin: No rashes, No breakdown Neurological: Neuro grossly intact, Sensory exam intact to light touch and pain Psych/Mental Status: Normal Affect, Appropriate Vital Signs Temp Pulse Resp BP Pulse Ox 98.1 F 80 20 H 141/95 H 93 08/24/18 07:55 08/24/18 07:55 08/24/18 07:55 08/24/18 07:55 08/24/18 08:04 Oxygen Flow Rate (L/min) 1 Oxygen Delivery Method Room Air Weight: 193 lb 9.054 oz Body Mass Index (BMI) 28.5 Intake and Output for Last 24 Hours 08/22/18 08/23/18 08/24/18 23:59 23:59 23:59 Intake Total 1000 / 1000 1536 / 1536 680 / 680 Balance 1000 / 1000 1536 / 1536 680 / 680 Microbiology Past 72 Hours 08/22/18 12:45 Gram Stain - Final Sputum, Expectorated/Coughed Respiratory Culture - Preliminary Appears to be normal respiratory sammie. Further studies to follow. Discharge Activity: Return to Normal Activity, No Restrictions Call your doctor if you observe: Fever of 101 or Higher, Shortness of breath, Dizziness, Fainting spells, Swelling in the ankles, Chest pain, Increased palpitations (irregular heartbeat) Home Medications: Medications to take at Discharge Omeprazole 40 mg PO DAILY 08/22/18 predniSONE tablet 40 mg PO DAILY@0800 #20 tablet 08/24/18 Following Prescrptions Were Given to Patient: predniSONE tablet 40 mg PO DAILY@0800 #20 tablet Primary Care Physician: Lakhwinder Lerner MD [NON-STAFF] - Please follow up with your Primary Care Physician in: 3-5 days Please Follow Up With: Marcela Kramer NP-C When: Sunday Disposition: Home Minutes spent on discharge:: 35 Patient Condition:: Stable Medical Necessity - Tobacco Use Smoking Status: Current every day smoker Meaningful Use Info Meaningful Use Diagnoses (Choose all that apply): None applicable Code Visit Inpatient E&M: 61797 Disch Hosp
== END 2018-08-24 11:59 | disposition home or self-care (01) | DRG 192 ==
LOC: ED 11:31 → MS3 08-23 07:17
PROVIDERS: Admitting Provider Internal Medicine; Emergency Provider Emergency Medicine; Visit Provider Family Medicine
DX: J44.1 Chronic obstructive pulmonary disease with (acute) exacerbation (principal); K21.9 Gastro-esophageal reflux disease without esophagitis; F17.200 Nicotine dependence, unspecified, uncomplicated; Z91.19 Patient's noncompliance with other medical treatment and regimen
CPT/HCPCS: 36415; 71046; 80048; 83880; 85025; 85379; 87070; 87205; 87633; 93005; 94640; 94667; 94668; 99285; 99406; A4216; J2405

== ENCOUNTER → 2018-08-28 09:42 | Outpatient (CLI) | payer MEDICARE, SELFPAY ==
[2018-08-22 11:49] VITALS: BMI 28.5
[2018-08-28 09:49] LABS: Bacteria 0 SEEN /hpf (None Seen); Mucous, Urine 0 SEEN /hpf (<or=2+); Red Blood Cells-Urine 0 SEEN /hpf (0-5)
[2018-08-28 13:11] LABS: Absolute Neutrophil Count 7.5 X10^3/uL (2.0-7.7); Basophil# 0.03 X10^3/uL; Basophil% 0.2 % (0-1); Differential Indicated SCAN CRITERIA MET; Eosinophil# 0.55 X10^3/uL; Eosinophils% 4.4 % (0-5); Hematocrit 48.6 % (40-54); Hemoglobin 15.8 g/dl (13.0-16.5); Lymphocyte % 20.2 % (19-41); Mean Corp Hgb Conc 32.5 g/gl (32-36); Mean Corpuscular Hgb 28.8 pg (27.0-32.0); Mean Corpuscular Volume 88.7 fL (80-94); Mean Platelet Vol. 9.4 fl (6.2-12.0); Monocyte# 1.66 X10^3/uL; Monocyte% 13.4 % (0-10); Neutrophil # 7.53 X10^3/uL (2.7-7.7); Neutrophil % 61.1 % (47-70); POSITIVE COUNT NO; POSITIVE DIFFERENTIAL YES; POSITIVE MORPHOLOGY NO; Platelet Count 299 K/mm3 (150-450); RBC Distribution Width CV 15.7 % (11.6-14.6); RBC Distribution Width SD 50.9 fl (35.1-43.9); Red Blood Count 5.48 M/mm3 (4.6-6.2); White Blood Count 12.4 K/mm3 (4.4-11.0)
[2018-08-28 13:17] LABS: Color, Urine Yellow (Yellow); Glucose, Dipstick Normal (Normal); Ketone-Dipstick Negative (Negative); Leukocyte Esterase-Dipstick 25 /ul (Negative); Nitrite-Dipstick Negative (Negative); Occult Blood-Urine Negative /ul (Negative); Protein-Dipstick Negative (Negative); Specific Gravity, Urine 1.015 (1.002-1.030); Urine Bilirubin Dipstick Negative (Negative); Urine Clarity Clear (Clear); Urine Urobilinogen 1 mg/dl (Normal)
[2018-08-28 13:22] LABS: ALB/GLOB Ratio 0.9 RATIO (0.9-2.4); AST(SGOT) 25 U/L (15-37); Alanine Aminotransfer ALT/SGPT 37 U/L (16-61); Alkaline Phosphatase 86 U/L (45-117); Anion Gap 3 (5-15); BUN 14 mg/dL (7-18); Calcium,Total 8.3 mg/dL (8.5-10.1); Chloride 105 mmol/L (98-107); Cholesterol 241 mg/dL (200); Creatinine, Serum 1.27 mg/dL (0.70-1.30); EST Glomerular Filtration Rate 62 mL/min (>60); Est Glom Filt Rate - Afr Amer 75 mL/min (>60); Ferritin 401 ng/mL (26-388); Globulin 3.3 g/dL (2.2-4.2); Glucose 96 mg/dL (74-106); High Density Lipoprotein 40 mg/dL; Iron 179 ug/dL (65-175); Iron Binding Capacity,Total 313 ug/dL (250-450); Potassium 3.8 mmol/L (3.5-5.1); Protein, Total 6.3 g/dL (6.4-8.2); Rheumatoid Factor < 10.0 IU/mL (<15); Sodium Level 141 mmol/L (136-145); Triglycerides 596 mg/dL; Vitamin B12 257 pg/mL (211-911)
[2018-08-28 13:34] LABS: Squamous Epithelial Cells - UA 0-5 SEEN /hpf (0-5); White Blood Cells 0-5 SEEN /hpf (0-5)
[2018-08-29 14:26] LABS: Pathologist Review Reviewed
[2018-08-29 16:42] LABS: ANTINUCLEAR ANTIBODIES DIRECT Positive (Negative)
[2018-09-02 10:04] LABS: CCP IgG Antibodies 5 units (0-19); HEPATITIS B SURFACE AG Negative (Negative); Hep B Surface Antibodies Non Reactive (.); Hep C Antibodies <0.1 s/co ratio (0.0-0.9); Vitamin B1, Thiamine 122.7 nmol/L (66.5-200.0)
== END ==
PROVIDERS: Family Provider Family Medicine; PCP Family Medicine; Referring Provider Family Medicine; Visit Provider Family Medicine
DX: G62.9 Polyneuropathy, unspecified (principal); M06.00 Rheumatoid arthritis without rheumatoid factor, unspecified site; E78.5 Hyperlipidemia, unspecified; F41.9 Anxiety disorder, unspecified; F32.9 Major depressive disorder, single episode, unspecified; E83.19 Other disorders of iron metabolism; J44.9 Chronic obstructive pulmonary disease, unspecified; R94.5 Abnormal results of liver function studies; Z72.0 Tobacco use
CPT/HCPCS: 36415; 80053; 80061; 81001; 82607; 82728; 83540; 83550; 84425; 84443; 85025; 86038; 86200; 86431; 86706; 86803; 87340

== ENCOUNTER → 2018-09-20 08:45 | Outpatient (CLI) | payer MEDICARE, SELFPAY ==
[2018-09-06 10:55] VITALS: BMI 28.5
[2018-09-20 09:19] VITALS: PULSE 102; PULSE 104; PULSE 105; PULSE 107; PULSE 111; PULSE 86; PULSE 87; PULSE 95; O2SAT 92; O2SAT 93; O2SAT 94; O2SAT 96
--- NOTE | 2018-09-21 08:10 | PCM.PSN.6M ---
PSN 6 Minute Walk Test - 6 Minute Walk Test 6 Minute Walk Test: 6 Minute Walk Test PSN:6-Minute Walk Test Start: 09/20/18 09:19 Freq: Status: Active Protocol: RESP.6MINW Document 09/20/18 09:19 ROBERTA (Rec: 09/20/18 09:22 ROBERTA [id number]) 6 Minute Walk Test Date Performed 09/20/18 Time Performed 09:00 Height 5 ft 9 in Weight: 193 lb Weight in Pounds 193.[address]: Shaheen Keller Assistive device used: None Pre-test Oxygen Delivery Method Room Air Pulse Ox (%) 94 Pulse Rate (60-100 beats/min) 87 Dyspnea Sydney Scale (0-10) 0 Exertion Sydney Scale (6-20) 6 1st minute Oxygen Delivery Method Room Air Pulse Ox (%) 94 Pulse Rate (60-100 beats/min) 95 2nd minute Oxygen Delivery Method Room Air Pulse Ox (%) 93 Pulse Rate (60-100 beats/min) 102 H 3rd minute Oxygen Delivery Method Room Air Pulse Ox (%) 93 Pulse Rate (60-100 beats/min) 104 H 4th minute Oxygen Delivery Method Room Air Pulse Ox (%) 93 Pulse Rate (60-100 beats/min) 107 H 5th minute Oxygen Delivery Method Room Air Pulse Ox (%) 92 Pulse Rate (60-100 beats/min) 105 H 6th minute Oxygen Delivery Method Room Air Pulse Ox (%) 93 Pulse Rate (60-100 beats/min) 111 H Dyspnea Sydney Scale (0-10) 3 Exertion Sydney Scale (6-20) 14 Post-test Oxygen Delivery Method Room Air Pulse Ox (%) 96 Pulse Rate (60-100 beats/min) 86 Full Laps Walked 22 Partial Lap, Number of Tiles Walked 0 Total Distance Walked (ft) 1298 - Interpretation Interpretation: The patient ambulated 1298 feet over the course of 6 minutes beginning on room air without assistive devices or breaks. Pretesting oxygen saturation was noted to be 94% on room air. With ambulation, the yinka oxygen saturation was 92%. There was no significant exertional oxygen desaturation. - Recommendations Recommendations: There is no indication for the use of supplemental oxygen at this time.
== END ==
PROVIDERS: Family Provider Family Medicine; PCP Family Medicine; Referring Provider Nurse Practitioner Acute Care; Visit Provider Nurse Practitioner Acute Care
DX: J44.9 Chronic obstructive pulmonary disease, unspecified (principal)
CPT/HCPCS: 94618

== ENCOUNTER → 2018-09-26 07:22 | Outpatient (CLI) | payer MEDICARE, SELFPAY ==
[2018-09-06 10:55] VITALS: BMI 28.5
--- NOTE | 2018-09-26 14:40 | PFTCOMP ---
COMPLETE PULMONARY FUNCTION TEST INTERPRETATION Brief HPI: Patient is a 58 year old male, currently under the care of Dr. Keller, who presents to [facility] for complete pulmonary function tests secondary to diagnosis of COPD. Respiratory therapist reports good effort and reproducible results. Interpretation: Forced expiration spirometry shows a moderate large airways obstructive ventilatory defect with an FEV1 of 65% predicted. There is no significant bronchodilator response by strict ATS criteria. Spirograms are of good quality and plateau slowly, indicating slowly emptying areas of the lungs. The respiratory flow volume loop shows decreased expiratory flow rates at all lung volumes consistent with airway obstruction. Lung volumes by body plethysmography show a normal total lung capacity at 7.01 L, 109% predicted. All other lung volumes are within normal limits. Diffusion capacity by carbon monoxide is at the lower limit of normal at 78% predicted. The airway resistance is slightly elevated. No previous pulmonary function tests were available for review. Impression: Irreversible moderate large airways obstructive ventilatory defect with a symmetric reduction in diffusing capacity
== END ==
PROVIDERS: Family Provider Family Medicine; PCP Family Medicine; Referring Provider Nurse Practitioner Acute Care; Visit Provider Nurse Practitioner Acute Care
DX: J44.9 Chronic obstructive pulmonary disease, unspecified (principal)
CPT/HCPCS: 94060; 94726; 94729

== ENCOUNTER → 2018-09-30 20:00 | Outpatient (CLI) | payer MEDICARE, SELFPAY ==
[2018-09-06 10:55] VITALS: BMI 28.5
[2018-09-30] MEDS: Zolpidem Tartrate 5 MG Tablet 10 MG PO (21:50)
== END ==
LOC: SL 20:06
PROVIDERS: Family Provider Family Medicine; PCP Family Medicine; Referring Provider Nurse Practitioner Acute Care; Visit Provider Nurse Practitioner Acute Care
DX: G47.33 Obstructive sleep apnea (adult) (pediatric) (principal)
CPT/HCPCS: 95811

== ENCOUNTER 2018-10-10 14:03 | Observation (INO) | payer MEDICARE, SELFPAY ==
[2018-10-10] VITALS (12 sets, daily range): BP systolic 112–128; BP diastolic 73–88; PULSE 65–83; RESP 15–21; TEMP 36.5–36.9; O2SAT 92–95; BMI 29.3; BMI 29.2; BMI 28.8
--- NOTE | 2018-10-10 14:15 | EKG12_ITS ---
Test Reason : CP Blood Pressure : / mmHG Vent. Rate : 076 BPM Atrial Rate : 076 BPM P-R Int : 154 ms QRS Dur : 090 ms QT Int : 388 ms P-R-T Axes : 014 -27 007 degrees QTc Int : 436 ms Normal sinus rhythm Normal ECG Confirmed by LAQUITA TRUJILLO, JEWEL ([id number]), editor farm journal ROSITA HEWITT ([id number]) on 10/11/2018 12:13:25 PM Referred By: Kris Del Cid Confirmed By:JEWEL COELHO MD
--- NOTE | 2018-10-10 14:20 | RAD_ITS ---
STUDY: X-RAY CHEST REASON FOR EXAM: Male, 58 years old. Chest pain. TECHNIQUE: Single AP portable view of the chest. COMPARISON: Comparison is made with prior study dated August 22, 2018. FINDINGS: EKG electrodes are seen. Mild degree of increased linear markings at the lung bases suggestive of linear atelectasis. There is no demonstrated pleural abnormality. Normal size heart. Normal mediastinum and lisy. Normal visualized pulmonary arteries. Normal visualized aortic arch and descending thoracic aorta. There are diffuse degenerative changes of the visualized thoracic spine. Normal visualized ribs, clavicles, and shoulders. There is no demonstrated abnormality of the visualized soft tissue structures of the upper abdomen. RAD/Chest 1 View (Portable) IMPRESSION: Linear atelectasis at the lung bases. Electronically Signed: Rahul Plunkett, at 14:39 EDT , Service support ,
[2018-10-10 14:34] LABS: Absolute Lymphocyte Count 1.97 X10^3/ul (0.83-4.51); Absolute Neutrophil Count 6.9 X10^3/uL (2.0-7.7); Basophil# 0.08 X10^3/uL; Basophil% 0.8 % (0-1); Eosinophil# 0.33 X10^3/uL; Eosinophils% 3.2 % (0-5); Hematocrit 47.4 % (40-54); Hemoglobin 15.5 g/dl (13.0-16.5); Lymphocyte # 1.97 X10^3/ul (4.0); Lymphocyte % 19.1 % (19-41); Mean Corp Hgb Conc 32.7 g/gl (32-36); Mean Corpuscular Hgb 29.7 pg (27.0-32.0); Mean Corpuscular Volume 90.8 fL (80-94); Monocyte# 1.04 X10^3/uL; Monocyte% 10.1 % (0-10); Neutrophil # 6.89 X10^3/uL (2.7-7.7); Neutrophil % 66.5 % (47-70); Platelet Count 259 K/mm3 (150-450); RBC Distribution Width CV 14.8 % (11.6-14.6); RBC Distribution Width SD 49.5 fl (35.1-43.9); Red Blood Count 5.22 M/mm3 (4.6-6.2); White Blood Count 10.3 K/mm3 (4.4-11.0)
[2018-10-10 14:35] LABS: POSITIVE COUNT NO; POSITIVE DIFFERENTIAL NO; POSITIVE MORPHOLOGY NO
[2018-10-10] MEDS: Aspirin 81 MG TAB.CHEW 324 MG PO (14:39)
[2018-10-10 14:53] LABS: Anion Gap 6 (5-15); BUN 15 mg/dL (7-18); BUN/Creat Ratio 10.9 RATIO (10-20); Calcium,Total 8.9 mg/dL (8.5-10.1); Chloride 102 mmol/L (98-107); Creatinine, Serum 1.38 mg/dL (0.70-1.30); EST Glomerular Filtration Rate 56 mL/min (>60); Est Glom Filt Rate - Afr Amer 68 mL/min (>60); Estimated Creatinine Clearance 57.64 ml/min; Glucose 105 mg/dL (74-106); Potassium 4.2 mmol/L (3.5-5.1); Sodium Level 140 mmol/L (136-145)
--- NOTE | 2018-10-10 15:48 | ED.VISSUMM ---
- ER Visit Summary Date of Service: 10/10/18 Chief Complaint: Chest pain History of Present Illness: The patient is a 58 M patient presents with 3 days of chest pain. The pain is retrosternal and radiates to his neck. Worse with exertion. Associated with lightheadedness and dizziness. He does have some occasional shortness of breath, but attributes it to his history of COPD. He has a history of hypertension and hyperlipidemia. Denies any history of PA or coronary disease. He had a cardiac catheterization in 2017 in [facility]. He believes this was unremarkable. He does not take blood thinners. He is a smoker and has a family history of PA. 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 Physical Examination: Afebrile and vital signs unremarkable. Patient is alert and oriented. No acute distress. Skin normal in color without diaphoresis or pallor. Heart regular rate and rhythm. Lungs clear. Abdomen soft and nontender. Pulses strong and equal. Calf soft and supple. Test Results: EKG showed sinus rhythm rate of 76. No sign of acute ischemia or infarction pattern. CBC, BMP, troponin unremarkable. Chest x-ray showed atelectasis but otherwise was unremarkable. Emergency Department Course and Treatment: Patient was treated with aspirin. IV obtained. He was placed on a monitor. EKG and work-up unremarkable. Patient has multiple risk factors for coronary disease. Hospice was contacted for further care. His symptoms and findings are not concerning for PE or aortic disease. Treatment Plan: As above Disposition: Admission Impression: Chest pain This note was generated with [employer] dictation software. It may contain incorrect words, spelling, and punctuation that were not noted in review of the chart prior to signing ED Disposition - Plan for ED Patient: Referrals: Chris Weir MD [Primary Care Provider] -
--- NOTE | 2018-10-10 16:02 | PCM.HP.STD ---
Problem List (1) Chest pain Status: Acute (2) Depression Status: Chronic (3) TIFFANIE (obstructive sleep apnea) Status: Chronic (4) COPD (chronic obstructive pulmonary disease) Status: Chronic Qualifiers: (5) GERD (gastroesophageal reflux disease) Status: Chronic (6) Tobacco dependence Status: Chronic History of Present Illness Date of Admission: 10/10/18 Chief Complaint: Chest pain. The patient is a 58 year old M with past medical history as mentioned above presented to the emergency room because of chest pain. Symptoms started around 3 days ago with retrosternal chest pain, dull aching pain, goes to the right side of the sternum and extends to the right side of the neck, it is mainly exertional, has been constant for the last 3 days, associated with dizziness and occasional shortness of breath, aggravated by activity and relieved by rest. He reported this occasional shortness of breath to his COPD and he mentioned that nothing unusual from his baseline. He denies syncope or presyncope. He mentioned that he had cardiac catheterization 2 years ago and he was informed that it was unremarkable, no documents available. In the emergency department, his vital signs were stable. His routine blood work was remarkable for creatinine of 1.38, otherwise normal. EKG revealed normal sinus rhythm, normal QTC, normal MA interval, and no acute changes. Troponin is negative. Chest x-ray showed no acute findings. He is being admitted for atypical chest pain for evaluation. Past Medical History Past Medical History (Chronic Problems): Chronic Problems (Last Updated 10/10/18 @ 15:50 by Kris Del Cid MD) Rheumatoid arthritis (Chronic) Depression (Chronic) TIFFANIE (obstructive sleep apnea) (Chronic) COPD (chronic obstructive pulmonary disease) (Chronic) GERD (gastroesophageal reflux disease) (Chronic) Tobacco dependence (Chronic) Medical History: Medical History (Last Updated 10/10/18 @ 15:50 by Kris Del Cid MD) Rheumatoid arthritis (Chronic) M06.9 Depression (Chronic) F32.9 TIFFANIE (obstructive sleep apnea) (Chronic) G47.33 COPD (chronic obstructive pulmonary disease) (Chronic) J44.9 GERD (gastroesophageal reflux disease) (Chronic) K21.9 Tobacco dependence (Chronic) F17.200 Allergies No Known Allergies Allergy (Verified 10/10/18 14:04) Home Medications: Ambulatory Orders Medication Instructions Recorded Omeprazole 40 mg PO DAILY 08/22/18 varenicline 0.5 mg (11)-1 mg (42) 1 mg PO BID tab 09/06/18 tablets in a dose pack Fluticasone/Umeclidin/Vilanter 1 puff IH DAILY 10/10/18 [Jerardo Ellipta 100-62.5-25] cyanocobalamin (vitamin B-12) 1,000 mcg PO DAILY 10/10/18 1,000 mcg capsule omega-3 fatty acids 1,000 mg 1,000 mg PO BID 10/10/18 capsule sertraline 100 mg tablet 100 mg PO DAILY 10/10/18 trazodone 100 mg tablet 100 mg PO QHS 10/10/18 Surgical History: Surgical History (Last Updated 10/10/18 @ 15:50 by Kris Del Cid MD) History of knee surgery (Inactive) Z98.890 Surgical History: - - Arthroscopic knee surgery. Psychiatric History: Depression Lives: Spouse/ Significant Other Smoking Status: Current every day smoker Tobacco Use: Cigarettes Alcohol: Occasional Drugs: None - *Family History Paternal Family History: Family History (Last Reviewed 10/10/18 @ 12:42 by Bernadette Alfaro) Father Diabetes Gout Cancer Heart disease Mother Hypertension Arthritis History Items: Cancer - from lung cancer, Heart Disease Maternal Family History: Family History (Last Reviewed 10/10/18 @ 12:42 by Bernadette Alfaro) Father Diabetes Gout Cancer Heart disease Mother Hypertension Arthritis History Items: Heart Disease, Hypertension Review of Systems Constitutional: Denies: Anorexia, Chills, Fever, Weakness Eyes: Denies: Blurred vision, Double vision, Drainage, Redness HEENT: Denies: Difficulty Hearing, Ear Pain, Eye Pain, Nasal Congestion, Sore Throat Cardiovascular: Reports: Chest Pain, Light Headedness. Denies: Chest Pressure, Chest Tightness, Edema, Orthopnea, Paroxysmal Noc. Dyspnea, Syncope Respiratory: Reports: Cough, Shortness of Breath. Denies: Pleuritic Pain, Sputum production, Wheezing Gastrointestinal: Denies: Abdominal Pain, Constipation, Diarrhea, Nausea, Vomiting Genitourinary: Denies: Dysuria, Frequency, Hematuria Musculoskeletal: Denies: Arm Pain, Back Pain, Foot Pain Skin: Denies: Dryness, Rash Neurological: Denies: Balance problems, Double vision, Change in Speech, Slurred speech, Confusion, Focal weakness, Incoordination, Numbness Psychiatric: Reports: Depression. Denies: Anxiety VTE Information - Inpt Only VTE Present on Admission: No VTE Mechan Device Prophylaxis: None VTE Pharm Prophylaxis ordered?: No - Physical Exam General: Alert, Oriented x3, Cooperative, No apparent distress HEENT: Atraumatic, PERRLA, EOMI, Normocephalic Oral: Moist Mucosa, No Gingival or Mucosal Lesions/ Ulcerations Neck: Supple, No JVD, Negative Carotid Bruits, Trachea Midline, Thyroid Normal Size and Texture Lungs: Clear to auscultation, Normal air movement, No rhonchi, No wheeze, No rales, Diminished Cardiovascular: Regular rate, Regular Rhythm, Normal S1, Normal S2, PMI Normal Abdomen: Bowel Sounds Present, Soft, Non Tender, Non-Distended, No Hepato-splenomegaly Extremities: No clubbing, No cyanosis, No edema Skin: No rashes, No breakdown Lymphatic: No Cervical, Supraclavicular, or Inguinal Adenopathy Neurological: Cranial nerves II-XII grossly intact, Motor Exam 5/5 strength throughout Psych/Mental Status: Normal Affect, Appropriate, Alert and oriented to time, place, person, mood and affect Vital Signs Temp Pulse Resp BP Pulse Ox 97.7 F L 76 15 121/80 H 95 10/10/18 14:05 10/10/18 15:07 10/10/18 15:07 10/10/18 15:07 10/10/18 15:07 Oxygen Delivery Method Room Air Weight: 198 lb 6.4 oz Body Mass Index (BMI) 29.2 Laboratory Tests Past 24 Hrs 10/10/18 10/10/18 14:21 14:21 WBC 10.3 RBC 5.22 Hgb 15.5 Hct 47.4 MCV 90.8 MCH 29.7 MCHC 32.7 RDW 14.8 H RDW Differential 49.5 H Plt Count 259 MPV 9.0 Immature Gran % (Auto) 0.300 Neut % (Auto) 66.5 Lymph % (Auto) 19.1 Forest % (Auto) 10.1 H Eos % (Auto) 3.2 Baso % (Auto) 0.8 Absolute Neuts (auto) 6.9 Absolute Lymphs (auto) 1.97 Total Counted Not Reportable Sodium 140 Potassium 4.2 Chloride 102 Carbon Dioxide 32.0 Anion Gap 6 BUN 15 Creatinine 1.38 H Estim Creat Clear Calc 57.64 Est GFR (MDRD) Af Amer 68 Est GFR (MDRD) Non-Af 56 L BUN/Creatinine Ratio 10.9 Glucose 105 Calcium 8.9 Troponin I < 0.015 Clinical Impression(s) from Imaging Studies Chest X-Ray 10/10/18 14:20 IMPRESSION: Linear atelectasis at the lung bases. Electronically Signed: Rahul Plunkett, at 14:39 EDT , Service support , Assessment/Plan All Active Problems (Last Updated 10/10/18 @ 15:50 by Kris Del Cid MD) Chest pain (Acute) This is a 58 years old male patient presented to the emergency room because of chest pain and he is being admitted for evaluation. #1 atypical chest pain: Risk factors are age and smoking. No family history of premature CAD. Both parents as hypertension and heart disease after the 60s. No personal history of hypertension, diabetes or hyperlipidemia. EKG was unremarkable. Chest x-ray showed no acute findings. Troponin is negative. Plan: Admit to PCU for observation, cardiac monitoring, serial cardiac enzymes, repeat EKG tomorrow morning, nuclear stress test tomorrow morning if cardiac enzymes are negative, nitroglycerin as needed, Tylenol as needed, IV fluids. #2 mild dehydration: As indicated by slightly elevated creatinine. Plan for IV fluids, repeat BMP tomorrow morning. #3 COPD: Stable, pulse oxygen is maintained on no medication for albuterol as needed, DuoNeb every 6 hours. Patient is on home oxygen at 1 L at night. #4 GERD: Continue PPI. #5 depression: Continue trazodone and sertraline. #6 tobacco abuse: NicoDerm patch if desired. #7 DVT prophylaxis: Low risk patient, no prophylaxis indicated. Ambulate. This note was generated with [employer] software. It may contain incorrect words, spelling, and punctuation that were not noted in checking the note before signing. Code Visit OBSV E&M: 29368 Initial observation care L3
--- NOTE | 2018-10-10 16:38 | EKG12_ITS ---
Test Reason : CP Blood Pressure : / mmHG Vent. Rate : 086 BPM Atrial Rate : 086 BPM P-R Int : 158 ms QRS Dur : 082 ms QT Int : 376 ms P-R-T Axes : 038 -27 001 degrees QTc Int : 449 ms Sinus rhythm with occasional Premature ventricular complexes Poor R- wave Progression Confirmed by ZEINA TRUJILLO, BRADY ([id number]), publications editor ROSITA HEWITT ([id number]) on 10/17/2018 10:29:28 AM Referred By: Kris Del Cid Confirmed By:BRADY PASTRANA MD
[2018-10-10] MEDS: 0.9% Normal Saline 1,000 ML 100 ML IV (17:00)
[2018-10-10] MEDS: Ipratropium/Albuterol Sulfate 3 ML AMPUL.NEB INHALATION (19:20)
[2018-10-10] MEDS: Acetaminophen 325 MG Tablet 650 MG PO (20:40)
--- NOTE | 2018-10-10 20:51 | EKG12_ITS ---
Test Reason : CP ADMISSION Blood Pressure : / mmHG Vent. Rate : 065 BPM Atrial Rate : 065 BPM P-R Int : 162 ms QRS Dur : 088 ms QT Int : 414 ms P-R-T Axes : 034 -18 008 degrees QTc Int : 430 ms Normal sinus rhythm Poor R- wave Progression Confirmed by ZEINA TRUJILLO, BRADY ([id number]), video editor ROSITA HEWITT ([id number]) on 10/17/2018 10:30:29 AM Referred By: Kris Del Cid Confirmed By:BRADY PASTRANA MD
[2018-10-10] MEDS: traZODone 100 MG Tablet PO (22:02)
[2018-10-11 02:37] VITALS: BP 107/58; PULSE 69; RESP 16; TEMP 36.8; O2SAT 94
[2018-10-11 03:02] VITALS: PULSE 70
--- NOTE | 2018-10-11 05:55 | EKG12_ITS ---
Test Reason : AM EKG Blood Pressure : / mmHG Vent. Rate : 063 BPM Atrial Rate : 063 BPM P-R Int : 170 ms QRS Dur : 090 ms QT Int : 422 ms P-R-T Axes : 044 -13 008 degrees QTc Int : 431 ms Normal sinus rhythm Normal ECG When compared with ECG of 10-OCT-2018 20:54, MANUAL COMPARISON REQUIRED, DATA IS UNCONFIRMED Confirmed by JUDITH TRUJILLO, EVELYN ([id number]), editor book ROSITA HEWITT ([id number]) on 10/18/2018 2:08:16 PM Referred By: Kris Del Cid Confirmed By:MILKA WONG MD
[2018-10-11 05:57] LABS: Anion Gap 4 (5-15); BUN 15 mg/dL (7-18); BUN/Creat Ratio 11.1 RATIO (10-20); Calcium,Total 8.6 mg/dL (8.5-10.1); Chloride 104 mmol/L (98-107); Creatinine, Serum 1.35 mg/dL (0.70-1.30); EST Glomerular Filtration Rate 57 mL/min (>60); Est Glom Filt Rate - Afr Amer 69 mL/min (>60); Estimated Creatinine Clearance 58.92 ml/min; Glucose 104 mg/dL (74-106); Potassium 4.4 mmol/L (3.5-5.1); Sodium Level 142 mmol/L (136-145)
[2018-10-11] MEDS: Aspirin E.C. 81 MG Tablet PO (05:59)
[2018-10-11 06:00] VITALS: BP 126/81; PULSE 66; RESP 16; TEMP 36.6; O2SAT 94
--- NOTE | 2018-10-11 08:57 | STRESSREP ---
Stress Test Report Pharmacologic myocardial perfusion stress test. 58-year-old man with a history of chest pain. Medications: Aspirin, Protonix, Zoloft. Stress protocol: Resting EKG demonstrates normal sinus rhythm with a rate of 64 bpm normal intervals are noted resting blood pressure is 112/80 6 m of mercury. 0.4 mg of regadenoson was infused per usual protocol followed by rapid intravenous and flush injection continuous EKG monitoring was performed. The maximum heart rate attained was 88 bpm which was 54% of maximum predicted heart rate and maximum workload was 1 metabolic equivalent. At rest there were no ST or T wave changes noted suggest abnormal flow reserve at peak infusion nonspecific ST-T wave changes were noted with no evidence of ischemia. The resting blood pressure was 112/86 final blood pressures 118/74. Myocardial perfusion protocol. 11.8 mCi of technetium 99m sestamibi was injected at rest. 0.4 mg of regadenoson was infused per usual protocol peak infusion 33.7 mCi of technetium 99m sestamibi was injected stress images were obtained stress and rest images were reconstructed in comparing the short axis vertical long horizontal long axis. Gated images were also obtained Perfusion SPECT analysis: Review of the stress images demonstrate normal cardiac silhouette size. There appears to be normal perfusion noted in all areas of the myocardium on the stress and resting images except for the apex with mildly reduced perfusion. The above appears to be suggestive of apical thinning. No obvious ischemia or reversibility is noted Gated SPECT analysis: The gated ejection fraction is noted to be 51%. Conclusion: Normal pharmacologic myocardial perfusion stress test. Preserved ejection fraction.
[2018-10-11 09:05] VITALS: BP 125/80; PULSE 75; RESP 16; TEMP 36.6; O2SAT 96
[2018-10-11] MEDS: Pantoprazole Sodium 40 MG Tablet PO (09:13)
[2018-10-11] MEDS: Sertraline 100 MG Tablet PO (09:13)
[2018-10-11 09:19] VITALS: PULSE 76
--- NOTE | 2018-10-11 10:50 | DCINST_ITS ---
You will use the following diet at home:: No restrictions Your food should be the consistency of: Regular Your liquids should be the consistency of: Regular/Thin Discharge Activity: Return to Normal Activity Allergies/Adverse Reactions: Allergies No Known Allergies Allergy (Verified 10/10/18 14:04) Medications to take at Discharge Omeprazole 40 mg PO DAILY 08/22/18 varenicline 0.5 mg (11)-1 mg (42) tablets in a dose pack 1 mg PO BID tab 09/06/18 Fluticasone/Umeclidin/Vilanter [Trelegy Ellipta 100-62.5-25] 1 puff IH DAILY 10/10/18 cyanocobalamin (vitamin B-12) 1,000 mcg capsule 1,000 mcg PO DAILY 10/10/18 omega-3 fatty acids 1,000 mg capsule 1,000 mg PO BID 10/10/18 sertraline 100 mg tablet 100 mg PO DAILY 10/10/18 trazodone 100 mg tablet 100 mg PO QHS 10/10/18 Primary Care Physician: Chris Weir MD [Primary Care Provider] - Please follow up with your Primary Care Physician in: 1-2 weeks Test Results: Test results from this visit will be discussed in further detail at your follow- up appointment, if applicable. Proposed Discharge Date: 10/11/18
--- NOTE | 2018-10-11 15:02 | DS.PCM_ITS ---
<Cheng Bruce - Last Filed: 10/11/18 15:02> Discharge Date and Diagnosis Date of Admission: 10/10/18 Date of Discharge: 10/11/18 - Primary Discharge Diagnosis Chest pain - musculoskeletal GERD, Barretts esophagus TIFFANIE Depression COPD Nicotine abuse - Secondary Discharge Diagnosis Chronic Problems (Last Reviewed 10/10/18 @ 16:18 by ROSA Saenz) Rheumatoid arthritis (Chronic) Depression (Chronic) TIFFANIE (obstructive sleep apnea) (Chronic) COPD (chronic obstructive pulmonary disease) (Chronic) GERD (gastroesophageal reflux disease) (Chronic) Tobacco dependence (Chronic) Hospital Course and Treatment Imaging Results: RAD/Chest 1 View (Portable) IMPRESSION: Linear atelectasis at the lung bases. Stress test: Conclusion: Normal pharmacologic myocardial perfusion stress test. Preserved ejection fraction. Operations: None Procedures: Stress test Summary of Care Provided: Hospital Course: The patient is a 58 year old M with pmhx as above who presented to the ER with c/o 3 days of chest pain described as dull aching to sharp pain along the right side of the sternum associated with dizziness. He was found to have negative EKG, negative troponin, and negative CXR. He was admitted to the PCU on tele for CP workup. No events on tele. He had repeat troponins which were negative. Stress test the following day was negative. Chest pain was reproducible on palpation. This was felt to be musculoskeletal. He was discharged home in stable condition and advised to f/u with his PCP in 1-2 weeks. This patient was seen by Cheng Bruce PA-C under the supervision of Dr. Cortes. [] - Physical Exam General: Alert, Oriented x3, Cooperative HEENT: Atraumatic, PERRLA, EOMI, Normocephalic Neck: Supple, No JVD, Negative Carotid Bruits Lungs: Clear to auscultation, Normal air movement Cardiovascular: Regular rate, No murmurs Abdomen: Bowel Sounds Present, Soft, Non Tender Extremities: No edema, Capillary Refill Less than 3 Seconds Skin: No rashes, No breakdown Musculoskeletal: No Tenderness to Palpation of Joints or Extremities Neurological: Cranial nerves II-XII grossly intact Psych/Mental Status: Normal Affect, Appropriate, Alert and oriented to time, place, person, mood and affect Vital Signs Temp Pulse Resp BP Pulse Ox 97.8 F 76 16 125/80 H 96 10/11/18 09:05 10/11/18 09:19 10/11/18 09:05 10/11/18 09:05 10/11/18 09:05 Oxygen Delivery Method Room Air Weight: 195 lb 5.273 oz Body Mass Index (BMI) 28.8 Intake and Output for Last 24 Hours 10/09/18 10/10/18 10/11/18 23:59 23:59 23:59 Intake Total 1501 / 1501 287 / 287 Balance 1501 / 1501 287 / 287 Laboratory Tests Past 24 Hrs 10/10/18 10/10/18 10/11/18 17:56 20:37 05:10 Sodium 142 Potassium 4.4 Chloride 104 Carbon Dioxide 34.0 H Anion Gap 4 L BUN 15 Creatinine 1.35 H Estim Creat Clear Calc 58.92 Est GFR (MDRD) Af Amer 69 Est GFR (MDRD) Non-Af 57 L BUN/Creatinine Ratio 11.1 Glucose 104 Calcium 8.6 Troponin I < 0.015 < 0.015 Discharge Diet: Low fat/ Low Cholesterol, 2000 mg Sodium Diet Discharge Activity: Return to Normal Activity Home Medications: Medications to take at Discharge Omeprazole 40 mg PO DAILY 08/22/18 varenicline 0.5 mg (11)-1 mg (42) tablets in a dose pack 1 mg PO BID tab 09/06/18 Fluticasone/Umeclidin/Vilanter [Trelegy Ellipta 100-62.5-25] 1 puff IH DAILY 10/10/18 cyanocobalamin (vitamin B-12) 1,000 mcg capsule 1,000 mcg PO DAILY 10/10/18 omega-3 fatty acids 1,000 mg capsule 1,000 mg PO BID 10/10/18 sertraline 100 mg tablet 100 mg PO DAILY 10/10/18 trazodone 100 mg tablet 100 mg PO QHS 10/10/18 Primary Care Physician: Chris Weir MD [Primary Care Provider] - Please follow up with your Primary Care Physician in: 1-2 weeks Disposition: Home Minutes spent on discharge:: 35 Patient Condition:: Stable Medical Necessity - Tobacco Use Smoking Status: Current every day smoker Tobacco Use: Cigarettes Meaningful Use Info Meaningful Use Diagnoses (Choose all that apply): None applicable <Jopperi,Roger - Last Filed: 10/11/18 15:22> Discharge Date and Diagnosis - Secondary Discharge Diagnosis Chronic Problems (Last Reviewed 10/10/18 @ 16:18 by DAVY SaenzC) Rheumatoid arthritis (Chronic) Depression (Chronic) TIFFANIE (obstructive sleep apnea) (Chronic) COPD (chronic obstructive pulmonary disease) (Chronic) GERD (gastroesophageal reflux disease) (Chronic) Tobacco dependence (Chronic) Hospital Course and Treatment Operations: None Procedures: Stress test Summary of Care Provided: Patient seen and examined independently. Data reviewed. I agree with the above note by the physician social service assistant. The patient is a 58 year old M presents with right-sided chest pain. Patient on a cardiac work-up including a stress test that was negative. On exam, chest pain was reproducible, it is felt that this is musculoskeletal no additional work-up is necessary. Patient advised that comes to costochondritis that can take time for that to get back to baseline. [] - Physical Exam General: Alert, Cooperative HEENT: Atraumatic, Normocephalic Musculoskeletal: - - Reproducible right-sided anterior chest wall tenderness Vital Signs Temp Pulse Resp BP Pulse Ox 36.6 C 76 16 125/80 H 96 10/11/18 09:05 10/11/18 09:19 10/11/18 09:05 10/11/18 09:05 10/11/18 09:05 Oxygen Delivery Method Room Air Weight: 88.6 kg Body Mass Index (BMI) 28.8 Intake and Output for Last 24 Hours 10/09/18 10/10/18 10/11/18 23:59 23:59 23:59 Intake Total 1501 / 1501 287 / 287 Balance 1501 / 1501 287 / 287 Laboratory Tests Past 24 Hrs 10/10/18 10/10/18 10/11/18 17:56 20:37 05:10 Sodium 142 Potassium 4.4 Chloride 104 Carbon Dioxide 34.0 H Anion Gap 4 L BUN 15 Creatinine 1.35 H Estim Creat Clear Calc 58.92 Est GFR (MDRD) Af Amer 69 Est GFR (MDRD) Non-Af 57 L BUN/Creatinine Ratio 11.1 Glucose 104 Calcium 8.6 Troponin I < 0.015 < 0.015 Discharge Diet: Low fat/ Low Cholesterol, 2000 mg Sodium Diet Discharge Activity: Return to Normal Activity Disposition: Home Patient Condition:: Stable Medical Necessity - Tobacco Use Tobacco Use: Cigarettes Meaningful Use Info Meaningful Use Diagnoses (Choose all that apply): None applicable Code Visit OBSV E&M: 98138 Observation care discharge
== END 2018-10-11 10:51 | disposition home or self-care (01) ==
LOC: ED 14:41 → PCU 16:59
PROVIDERS: Admitting Provider Hospitalist; Emergency Provider Emergency Medicine; Family Provider Family Medicine; PCP Family Medicine; Referring Provider Hospitalist
DX: R07.89 Other chest pain (principal); E86.0 Dehydration; J44.9 Chronic obstructive pulmonary disease, unspecified; E78.5 Hyperlipidemia, unspecified; I10 Essential (primary) hypertension; G47.33 Obstructive sleep apnea (adult) (pediatric); F32.9 Major depressive disorder, single episode, unspecified; K21.9 Gastro-esophageal reflux disease without esophagitis; M06.9 Rheumatoid arthritis, unspecified; F17.210 Nicotine dependence, cigarettes, uncomplicated; Z82.49 Family history of ischemic heart disease and other diseases of the circulatory system; Z79.899 Other long term (current) drug therapy; Z79.51 Long term (current) use of inhaled steroids; K22.70 Barrett's esophagus without dysplasia
CPT/HCPCS: 36415; 71045; 78452; 80048; 84484; 85025; 93005; 93017; 94640; 96360; 96361; 99218; 99285; 99406; A9500; J7030; A4216; G0378; J2785

== ENCOUNTER → 2018-10-15 13:42 | Outpatient (CLI) | payer MEDICARE, SELFPAY ==
[2018-10-10 16:52] VITALS: BMI 28.8
== END ==
PROVIDERS: Referring Provider Nurse Practitioner Acute Care; Visit Provider Nurse Practitioner Acute Care
DX: Z46.89 Encounter for fitting and adjustment of other specified devices (principal)

== ENCOUNTER 2018-11-28 12:40 | Emergency (ER) | payer MEDICARE, SELFPAY ==
[2018-10-10 16:52] VITALS: BMI 28.8
[2018-11-28 12:42] VITALS: BP 136/98; PULSE 96; RESP 17; TEMP 37.2; O2SAT 93; BMI 29.2
--- NOTE | 2018-11-28 12:54 | EKG12_ITS ---
Test Reason : MHC Blood Pressure : / mmHG Vent. Rate : 086 BPM Atrial Rate : 086 BPM P-R Int : 164 ms QRS Dur : 096 ms QT Int : 392 ms P-R-T Axes : 031 -61 -11 degrees QTc Int : 469 ms Normal sinus rhythm Pulmonary disease pattern Left anterior fascicular block Abnormal ECG Confirmed by JUDITH TRUJILLO, EVELYN ([id number]), electronic news gathering editor ROSITA HEWITT ([id number]) on 12/03/2018 10:31:46 AM Referred By: MILDRED Confirmed By:MILKA WONG MD
--- NOTE | 2018-11-28 12:56 | ED.VIS.GEN ---
History of Present Illness Chief Complaint: Suicidal Informant: Patient Onset: Days Context: Gradual Onset Timing: Continuous Current Severity: Severe Maximum Severity: Severe Narrative: The patient presents to the emergency department after suicidal gesture. Patient states he has been depressed. He recently had a break-up with his long-term girlfriend. He states he has had a difficult time coping with this. Today, he had a knife pressed to his abdomen was threatening suicide. He is never had a suicidal gesture before. He denies any drug or alcohol abuse. He states I just wish I would have done it. He continues to voice thoughts of self-harm. Prior similar symptoms: No Recent Illness/Hospitalization: No Past Medical History - Allergies and Home Meds Allergies/Adverse Reactions: Allergies No Known Allergies Allergy (Verified 10/10/18 14:04) Primary Care Physician: Chris Weir MD [Primary Care Provider] - Prior records reviewed: Yes Past Medical History: - - COPD, chronic pain Surgical History: - - Arthroscopic knee surgery. Lives: Alone Smoking Status: Current every day smoker Alcohol: None - Family History Maternal Family History: Family History (Last Reviewed 10/10/18 @ 16:18 by ROSA Saenz) Father Diabetes Gout Cancer Heart disease Mother Hypertension Arthritis Family History: Reports: Heart Disease, Hypertension Paternal Family History: Family History (Last Reviewed 10/10/18 @ 16:18 by ROSA Saenz) Father Diabetes Gout Cancer Heart disease Mother Hypertension Arthritis Family History: Reports: Cancer - from lung cancer, Heart Disease Review of Systems General: Denies: Chills, Fever, Sweats Eyes: Denies: Visual changes - bilaterally, Diplopia ENT: Denies: Rhinorrhea, Sore throat Cardiovascular: Denies: Chest pain, Palpitations Respiratory: Denies: Dyspnea, Cough, Dyspnea on exertion Gastrointestinal: Denies: Abdominal pain, Nausea, Vomiting, Diarrhea, Melena, Hematochezia Genitourinary: Denies: Dysuria, Hematuria, Frequency Musculoskeletal: Denies: Back pain, Extremity Pain Skin: Denies: Rash, Wounds Neurological: Denies: Headache, Weakness, Numbness Psych: Reports: Depression, Suicidal thoughts, Suicidal ideations Endocrine: Denies: Polyuria Hematologic: Denies: Easy bruising Physical Exam Vital Signs/Narrative: Vital Signs Temp Pulse Resp BP Pulse Ox 11/28/18 12:42 98.9 F 96 17 136/98 H 93 Inital Vital Signs reviewed: Yes General: Well nourished, Well developed, No Acute Distress Head: Normocephalic, Atraumatic Eyes: Perrl, EOMI ENT: Moist mucous membranes, No rhinorrhea Neck: Supple, Nontender Cardiovascular: Regular rate, Regular rhythm, No murmurs Respiratory: No distress, CTA bilaterally, Chest nontender Abdomen: Soft, Nontender, Nondistended, Normal bowel sounds Back: Nontender, Normal Inspection Extremities: Nontender, No edema Skin: Normal color, No rash Neurological: Alert, Oriented x3, Cranial nerves II-XII grossly intact, Normal Strength, Normal Sensation Psychological: Depressed, Agitated Diagnostic/Tx/Re-eval Laboratory Results 11/28/18 13:05: Urine Opiates Screen NEGATIVE, Urine Methadone Screen NEGATIVE, Ur Barbiturates Screen NEGATIVE, Ur Phencyclidine Scrn NEGATIVE, Ur Amphetamines Screen NEGATIVE, U Methamphetamin-MDMA POSITIVE H, U Benzodiazepines Scrn NEGATIVE, Urine Cocaine Screen NEGATIVE, U Cannabinoids Screen NEGATIVE, Ur Drug Screen Comment 11/28/18 13:10: WBC 11.6 H, RBC 5.66, Hgb 16.9 H, Hct 51.2, MCV 90.5, MCH 29.9, MCHC 33.0, RDW Std Deviation 43.8, RDW Coeff of Desmond 13.2, Plt Count 316, MPV 9.2, Immature Gran % (Auto) 0.300, Neut % (Auto) 78.1 H, Lymph % (Auto) 12.1 L, [place]wa % (Auto) 6.7, Eos % (Auto) 1.7, Baso % (Auto) 1.1 H, Absolute Neuts (auto) 9.1 H, Absolute Lymphs (auto) 1.40, Nucleated RBC % 0 11/28/18 13:10: Sodium 142, Potassium 3.8, Chloride 106, Carbon Dioxide 31.0, Anion Gap 5, BUN 14, Creatinine 1.50 H, Estim Creat Clear Calc 53.03, Est GFR (MDRD) Af Amer 61, Est GFR (MDRD) Non-Af 51 L, BUN/Creatinine Ratio 9.3 L, Glucose 110 H, Calcium 9.2, Total Bilirubin 0.60, AST 17, ALT 33, Alkaline Phosphatase 84, Total Protein 7.3, Albumin 3.8, Globulin 3.5, Albumin/Globulin Ratio 1.1 11/28/18 13:10: Ethyl Alcohol < 3.0 - Rhythm Strip Rhythm Strip: Sinus Rhythm Rate: 90 Ectopy: None - EKG Initial EKG Interpretation: Sinus Rhythm, No Acute Injury Pattern Prior: Unchanged - Medical Decision Making The patient presents to the emergency department with suicidal ideation with plan. Metabolic screening exam was performed. There was no acute abnormalities. EKG was obtained which showed chronic changes but no acute ischemia. The patient requested something to help him relax and requested injections. He was given Benadryl and Geodon. He was resting more comfortably. At this point, given suicidal ideation with plan I do feel that he would benefit from psychiatric admission. We are currently working on making arrangements to get him admitted to a psychiatric facility. Impression 1. Suicidal ideation with plan ED Disposition - Plan for ED Patient: Disposition: Psychiatric Hospital or Unit Referrals: Chris Weir MD [Primary Care Provider] -
[2018-11-28] MEDS: Ziprasidone IM 20 MG/ML VIAL IM (13:04)
[2018-11-28] MEDS: DiphenhydrAMINE 50 MG/ML Syringe 25 MG IM (13:04)
[2018-11-28 13:20] LABS: Absolute Neutrophil Count 9.1 X10^3/uL (2.0-7.7); Basophil# 0.13 X10^3/uL; Basophil% 1.1 % (0-1); Eosinophils% 1.7 % (0-5); Hematocrit 51.2 % (40-54); Hemoglobin 16.9 g/dL (13.0-16.5); Lymphocyte % 12.1 % (19-41); Mean Corpuscular Hgb 29.9 pg (27.0-32.0); Mean Corpuscular Volume 90.5 fL (80-94); Mean Platelet Vol. 9.2 fl (6.2-12.0); Monocyte# 0.78 X10^3/uL; Monocyte% 6.7 % (0-10); NRBC Flagged by Analyzer 0 % (0-5); Neutrophil # 9.06 X10^3/uL (2.7-7.7); Neutrophil % 78.1 % (47-70); Platelet Count 316 K/mm3 (150-450); RBC Distribution Width CV 13.2 % (11.6-14.6); RBC Distribution Width SD 43.8 fl (35.1-43.9); Red Blood Count 5.66 M/mm3 (4.6-6.2); White Blood Count 11.6 K/mm3 (4.4-11.0)
[2018-11-28 13:28] LABS: Amphetamine Urine VISTA NEGATIVE (<1000 ng/mL); Barbiturate Urine VISTA NEGATIVE (< 200 ng/mL); Benzodiazepine Urine VISTA NEGATIVE (< 200 ng/mL); Cocaine Urine VISTA NEGATIVE (< 300 ng/mL); Ecstacy Urine VISTA POSITIVE (< 500 ng/mL); Methadone Urine VISTA NEGATIVE (< 300 ng/mL); PCP Urine VISTA NEGATIVE (< 25 ng/mL); THC Urine VISTA NEGATIVE (< 50 ng/mL); Vista UDS pH Range 5
--- NOTE | 2018-11-28 13:28 | CM.ED ---
Social Work Consult: Suicidal Informant: Dr. Lind Chief Complaint: Patient stating I just don't want to be here anymore. I don't want to deal with it. Marital/Social History: Patient stating to be legally but not together anymore. Patient stating to have had a girlfriend until this morning. Patient states to have two children, age 8 and 15 that patient does not have custody of. Patient defines current relationship status as single. Living Situation: Has own apartment where patient was living with girlfriendTiara. Support/Resources: Limited support and resources per patient. Education and Employment History: Patient stating to have a high school diploma and denies any comprehension issues or concerns. Patient stating to currently be disabled due to COPD, Blown disc in back and Sleep Apnea. Mental Health treatment/History: Patient states to be diagnosed with depression and anxiety and to manage with Zoloft. Patient stating that Zoloft is prescribed by patient primary care doctor, Dr. Weir. Patient stating that Dr. Weir recently increased patient Zoloft dose from 100 to 150 but patient has been unable to fill prescription for 150 due to limited finances. Abuse Issues: Patient denies. Substance Abuse: Patient denies. Mental Status Exam: Patient Alert and Oriented x3 Appearance/General Behavior: Frustrated, directable. Mood/Affect: Depressed Communication Pattern: responds to questions. Some rapid speak when speaking about girlfriend. Patient become visibly frustrated when speaking about ex-girlfriend. Patient able to collect self. Thought Process: Patient denies any hallucinations, delusions, or paranoid thinking. Risk to Self/Others: Patient stating to have active thoughts of suicide and not wanting to be here. Patient noted to have been found by police with kitchen knife to chest. Patient stating to believe to have completed suicide if police would not have stopped patient. Patient stating to have contacted crisis today due to feeling unsafe to self. Patient denies any history of suicidal attempts or hospitalizations. Patient confirms to have suicidal thoughts often and that today was the first time that patient acted on thoughts. Patient stating that plan is to stab self. Assessment: Met with patient in room. Introduced self as well as executive secretary social welfare role, patient voicing understanding and open to speaking with this executive secretary social welfare. Patient stating to be frustrated and does not care about life. Patient stating to not want to deal with life anymore. Patient stating to be okay and that depression goes from 0-90 in nothing flat. Patient denies any Bi-polar or schizophrenia diagnosis. Patient unable to identify positive support or resources. Patient demonstrating significant risk to self as seen through suicidal gesture and thoughts. Patient stating to have no positive relationships. Patient stating to have been homeless for 6 months with current girlfriend and to have worked through a lot to get an apartment and steady income. Patient stating that since patient no longer has a girlfriend that patient will have further financial limitations. Patient identifying that only income for patient is social security disability. This executive secretary social welfare exploring patient coping skills, patient stating to utilize deep breathing at times but to mainly deal with emotions through anger. Patient denies physically hurting anyone but to manage emotions through becoming verbally angry and say things I regret. Patient stating that main trigger for mood and actions on this day are due to girlfriend breaking up with me. Collaborating with Dr. Lind. Recommending inpatient psychiatric hospitalization. Unable to establish safety plan with patient due to limited support and active suicidal thoughts and resent gesture. Interventions: 1:[address] Social work assessment [facility]-Suicide Severity Rating Scale: Suicide Intent with Specific Plan. PLAN: To facilitate placement ones patient is medically cleared. Megan PARKER, SERGIO
[2018-11-28 13:42] LABS: ALB/GLOB Ratio 1.1 RATIO (0.9-2.4); AST(SGOT) 17 U/L (15-37); Alanine Aminotransfer ALT/SGPT 33 U/L (16-61); Albumin, Serum 3.8 g/dL (3.2-5.0); Alkaline Phosphatase 84 U/L (45-117); Anion Gap 5 (5-15); BUN 14 mg/dL (7-18); BUN/Creat Ratio 9.3 RATIO (10-20); Calcium,Total 9.2 mg/dL (8.5-10.1); Chloride 106 mmol/L (98-107); EST Glomerular Filtration Rate 51 mL/min (>60); Est Glom Filt Rate - Afr Amer 61 mL/min (>60); Estimated Creatinine Clearance 53.03 ml/min; Globulin 3.5 g/dL (2.2-4.2); Glucose 110 mg/dL (74-106); Potassium 3.8 mmol/L (3.5-5.1); Protein, Total 7.3 g/dL (6.4-8.2); Sodium Level 142 mmol/L (136-145)
[2018-11-28 13:57] LABS: Alcohol, Blood (Medical)-Serum < 3.0 mg/dL
--- NOTE | 2018-11-28 14:03 | CM.ED ---
Social Work Telephone call to [facility] (P:[phone]), Intake. Referral made. Clinical information faxed ([phone]). Pending approval. Megan PARKER, SERGIO
--- NOTE | 2018-11-28 15:20 | NURSING ---
PATIENT ACCEPTED AT [facility]
--- NOTE | 2018-11-28 15:40 | CM.ED ---
[facility] Nurse to Nurse report: [phone] opt#1. Admitting doctor: Dr. Arturo Farias. Patient to admit to the dual diagnosis unit room 109 B. Notified nursing staff, Dr. Lind, and patient of above information. Animal Care Attendant to set up transportation. All agreeable to plan. PLAN: Transfer to [facility] SERGIO Meza
--- NOTE | 2018-11-28 16:43 | ED.RN ---
ATTEMPTED TO CALL REPORT TO [facility], WAS TOLD THEY WILL CALL BACK. CALL BACK NUMBER GIVEN.
[2018-11-28 16:53] VITALS: BP 136/97; PULSE 78; RESP 18; O2SAT 95
--- NOTE | 2018-11-28 16:59 | NURSING ---
CALLED [facility], ETA IS 1999 CALLED SHEREE DIOP, ETA IS FROM [place]
--- NOTE | 2018-11-28 17:30 | ED.RN ---
TRANSPORT AT BEDSIDE, REPORT GIVEN. DENIES QUESTIONS. BELONGINGS GIVEN TO TRANSPORT TEAM.
--- NOTE | 2018-12-03 18:49 | ED.RN ---
CHART OPOENED FOR POLICE REQUEST, THEY ARE LOOKING FOR THIS PERSON REFERENCE A MISSING PERSON REPORT
== END 2018-11-28 17:29 ==
PROVIDERS: Emergency Provider Emergency Medicine; Family Provider Family Medicine; PCP Family Medicine
DX: R45.851 Suicidal ideations (principal); F32.9 Major depressive disorder, single episode, unspecified; J44.9 Chronic obstructive pulmonary disease, unspecified; G89.29 Other chronic pain; F17.200 Nicotine dependence, unspecified, uncomplicated
CPT/HCPCS: 36415; 80053; 80307; 80320; 85025; 93005; 96372; 99285; G0480; J3486

== ENCOUNTER → 2018-12-11 11:37 | Outpatient (CLI) | payer MEDICARE, SELFPAY ==
[2018-12-05 10:33] VITALS: BMI 29.2
[2018-12-11 14:58] LABS: Absolute Lymphocyte Count 2.34 X10^3/uL (0.83-4.51); Absolute Neutrophil Count 5.6 X10^3/uL (2.0-7.7); Basophil# 0.14 X10^3/uL; Basophil% 1.5 % (0-1); Eosinophils% 5.2 % (0-5); Hematocrit 47.1 % (40-54); Hemoglobin 15.9 g/dL (13.0-16.5); Lymphocyte # 2.34 X10^3/ul (4.0); Lymphocyte % 24.6 % (19-41); Mean Corp Hgb Conc 33.8 g/dL (32-36); Mean Corpuscular Hgb 30.2 pg (27.0-32.0); Mean Corpuscular Volume 89.4 fL (80-94); Mean Platelet Vol. 9.8 fl (6.2-12.0); Monocyte% 9.4 % (0-10); NRBC Flagged by Analyzer 0 % (0-5); Neutrophil # 5.61 X10^3/uL (2.7-7.7); Neutrophil % 58.9 % (47-70); Platelet Count 306 K/mm3 (150-450); RBC Distribution Width CV 13.1 % (11.6-14.6); RBC Distribution Width SD 43.1 fl (35.1-43.9); Red Blood Count 5.27 M/mm3 (4.6-6.2); White Blood Count 9.5 K/mm3 (4.4-11.0)
[2018-12-11 15:28] LABS: Vitamin D,25 Hydroxy 9.9 ng/mL (29.95-100.01)
[2018-12-11 15:35] LABS: AST(SGOT) 35 U/L (15-37); Alanine Aminotransfer ALT/SGPT 56 U/L (16-61); Albumin, Serum 3.2 g/dL (3.2-5.0); Alkaline Phosphatase 85 U/L (45-117); Anion Gap 6 (5-15); BUN 11 mg/dL (7-18); BUN/Creat Ratio 7.5 RATIO (10-20); Calcium,Total 8.4 mg/dL (8.5-10.1); Chloride 105 mmol/L (98-107); Cholesterol 232 mg/dL (200); Creatinine, Serum 1.47 mg/dL (0.70-1.30); EST Glomerular Filtration Rate 52 mL/min (>60); Est Glom Filt Rate - Afr Amer 63 mL/min (>60); Ferritin 365 ng/mL (26-388); Globulin 3.3 g/dL (2.2-4.2); Glucose 96 mg/dL (74-106); High Density Lipoprotein 40 mg/dL; Iron 281 ug/dL (65-175); Iron Binding Capacity,Total 316 ug/dL (250-450); PERCENT IRON SATURATION 88.9 % (15.0-55.0); Potassium 3.6 mmol/L (3.5-5.1); Protein, Total 6.5 g/dL (6.4-8.2); Sodium Level 140 mmol/L (136-145); Triglycerides 701 mg/dL
[2018-12-16 13:42] LABS: AFP, Tumor Marker 2.6 ng/mL (0.0-8.3); Transferrin 237 mg/dL (200-370); Vitamin B1, Thiamine 118.3 nmol/L (66.5-200.0)
== END ==
PROVIDERS: Family Provider Family Medicine; PCP Family Medicine; Referring Provider Family Medicine; Visit Provider Family Medicine
DX: E83.19 Other disorders of iron metabolism (principal); E55.9 Vitamin D deficiency, unspecified; E78.1 Pure hyperglyceridemia; K70.30 Alcoholic cirrhosis of liver without ascites; E53.1 Pyridoxine deficiency
CPT/HCPCS: 36415; 80053; 80061; 82105; 82306; 82728; 83540; 83550; 84425; 84466; 85025

== ENCOUNTER → 2018-12-19 14:42 | Outpatient (CLI) | payer MEDICARE, SELFPAY ==
[2018-12-05 10:33] VITALS: BMI 29.2
--- NOTE | 2018-12-19 14:43 | CT_ITS ---
STUDY: CT CHEST/THORAX WITHOUT CONTRAST REASON FOR EXAM: Male, 58 years old. Follow-up left lung nodule. RADIATION DOSAGE (If Supplied By Facility): CTDIvol = ( 16.40 ) mGy, DLP = ( 631.16 ) mGycm TECHNIQUE: Transaxial imaging was performed without the administration of intravenous contrast material. Multiplanar coronal and sagittal images were reformatted. Individualized dose optimization techniques were used for this CT. COMPARISON: CTA chest March 11, 2018; portable AP upright chest x-ray October 10, 2018. FINDINGS: 10 mm well-defined, rounded nodular lesion in the medial margin of the superior segment left lower lobe (series 4 image 53, series 602 image 197) is unchanged (differences in measurement compared to prior study reflect interobserver variability). Curvilinear subsegmental atelectasis in the inferior lung bases is more prominent today, but the lungs are otherwise clear. There is no demonstrated pleural abnormality. Normal heart and pericardium. Wedge-shaped 2.3 x 1.7 x 1.55 cm area in the low pretracheal mediastinum as water density, consistent with a pericardial reflection. There is no new adenopathy. Normal hilar regions. Normal unenhanced pulmonary arteries. There is stable minor atherosclerotic calcification of the aortic arch. There are stable mild multi-level degenerative changes of the thoracic spine. Stable old healed fracture deformity of the lateral right ninth rib. There is no demonstrated abnormality of the visualized upper abdomen. CT/Chest without Contrast IMPRESSION: Stable medial left lung nodule. Another three to six-month follow-up is advised to further demonstrate stability. Electronically Signed: Meliton Schmitz MD at 20:30 EDT , Service support ,
== END ==
LOC: CT 14:42
PROVIDERS: Family Provider Family Medicine; PCP Family Medicine; Referring Provider Internal Medicine Critical Care Medicine; Visit Provider Internal Medicine Critical Care Medicine
DX: R91.1 Solitary pulmonary nodule (principal); F17.210 Nicotine dependence, cigarettes, uncomplicated
CPT/HCPCS: 71250

== ENCOUNTER 2019-01-13 03:47 | Observation (INO) | payer MEDICARE, SELFPAY ==
[2018-12-05 10:33] VITALS: BMI 29.2
[2019-01-13] VITALS (17 sets, daily range): BP systolic 83–138; BP diastolic 65–92; PULSE 72–93; RESP 12–21; TEMP 36.3–37.1; O2SAT 92–97; BMI 31.5; BMI 31.3
--- NOTE | 2019-01-13 03:53 | EKG12_ITS ---
Test Reason : WEAKNESS Blood Pressure : / mmHG Vent. Rate : 082 BPM Atrial Rate : 082 BPM P-R Int : 168 ms QRS Dur : 100 ms QT Int : 392 ms P-R-T Axes : 032 -35 014 degrees QTc Int : 457 ms Normal sinus rhythm Left axis deviation /LAHB Abnormal ECG Confirmed by MAGGI ROMANO ([id number]), state editor MARK FARNSWORTH ([id number]) on 01/15/2019 8:31:52 AM Referred By: Moises Liu Confirmed By:MAGGI ROMANO
--- NOTE | 2019-01-13 03:58 | ED.DCSUM_ITS ---
- ER Visit Summary Date of Service: 01/13/19 Chief Complaint: Near syncope History of Present Illness: The patient is a 58 M presenting with near syncope. He states this started approximately one hour ago. He states he tried to walk to the bathroom and nearly passed out. He denies syncope or fall. Denies chest pain or shortness of breath. Denies fever or recent illness. He complains of nausea and mild headache. Denies vertigo, numbness, weakness, vision changes, speech changes. Physical Examination: Vitals are stable. Patient is afebrile. Alert no acute distress. HEENT exam is unremarkable. Neck is supple. Lungs are clear and equal bilaterally. Heart is regular rate and rhythm. Abdomen is soft nontender nondistended. Extremities are unremarkable. Skin is warm and dry. No focal neurologic deficit. Remainder of exam is unremarkable. Emergency Department Course and Treatment: Patient was given IV fluids, Zofran. EKG is sinus rhythm rate of 82, unchanged from previous. CBC unremarkable. Chemistries show potassium 2.8, glucose 128, creatinine 1.36. Troponin is negative. Chest x-ray shows chronic changes. With orthostatic vital signs his blood pressure decreases with standing, heart rate remained stable. After IV fluids, patient continues to feel unsteady. He was given potassium oral replacement. Discussed with hospitalist for observation Disposition: Observation Impression: Near syncope This note was generated with [employer] dictation software. It may contain incorrect words, spelling, and punctuation that were not noted in review of the chart prior to signing ED Disposition - Plan for ED Patient:
[2019-01-13 04:00] LABS: Absolute Lymphocyte Count 3.13 X10^3/uL (0.83-4.51); Absolute Neutrophil Count 5.1 X10^3/uL (2.0-7.7); Basophil# 0.15 X10^3/uL; Basophil% 1.6 % (0-1); Eosinophil# 0.33 X10^3/uL; Eosinophils% 3.5 % (0-5); Hematocrit 48.7 % (40-54); Hemoglobin 16.4 g/dL (13.0-16.5); Lymphocyte # 3.13 X10^3/ul (4.0); Lymphocyte % 32.8 % (19-41); Mean Corp Hgb Conc 33.7 g/dL (32-36); Mean Corpuscular Hgb 29.1 pg (27.0-32.0); Mean Corpuscular Volume 86.5 fL (80-94); Monocyte% 8.4 % (0-10); NRBC Flagged by Analyzer 0 % (0-5); Neutrophil # 5.05 X10^3/uL (2.7-7.7); Neutrophil % 52.9 % (47-70); Platelet Count 284 K/mm3 (150-450); RBC Distribution Width CV 11.9 % (11.6-14.6); RBC Distribution Width SD 37.7 fl (35.1-43.9); Red Blood Count 5.63 M/mm3 (4.6-6.2); White Blood Count 9.5 K/mm3 (4.4-11.0)
--- NOTE | 2019-01-13 04:00 | RAD_ITS ---
HISTORY: weakness, light headedness, nausea EXAMINATION/TECHNIQUE: XR Chest 1 View: COMPARISON: 10/10/2018 FINDINGS: EKG leads in place. No significant change. Normal heart size. Bibasilar mild subsegmental atelectasis or scarring. No acute infiltrate. No vascular congestion. No pneumothorax. RAD/Chest 1 View (Portable) IMPRESSION: Stable exam. Bibasilar mild subsegmental atelectasis or scarring. at 0433 Reported and signed by: Crow Granado MD Electronically Signed: Crow Granado, at 4:31 EDT Tel , Service support ,
[2019-01-13] MEDS: 0.9% Normal Saline 1,000 ML 1000 ML IV (04:01)
[2019-01-13] MEDS: Ondansetron 4 MG/2 ML Vial IV (04:13)
[2019-01-13 04:21] LABS: Anion Gap 9 (5-15); BUN 10 mg/dL (7-18); BUN/Creat Ratio 7.4 RATIO (10-20); Calcium,Total 8.8 mg/dL (8.5-10.1); Chloride 98 mmol/L (98-107); Creatinine, Serum 1.36 mg/dL (0.70-1.30); EST Glomerular Filtration Rate 57 mL/min (>60); Est Glom Filt Rate - Afr Amer 69 mL/min (>60); Estimated Creatinine Clearance 54.68 ml/min; Glucose 128 mg/dL (74-106); Potassium 2.8 mmol/L (3.5-5.1); Sodium Level 137 mmol/L (136-145)
[2019-01-13] MEDS: 0.9% Normal Saline 1,000 ML 999 ML IV (05:03)
--- NOTE | 2019-01-13 05:20 | PCM.HP.STD ---
Problem List (1) Near syncope Status: Acute (2) Bipolar 1 disorder Status: Chronic (3) Chest pain Status: Resolved Qualifiers: (4) Rheumatoid arthritis Status: Chronic (5) Depression Status: Chronic (6) TIFFANIE (obstructive sleep apnea) Status: Chronic (7) COPD (chronic obstructive pulmonary disease) Status: Chronic Qualifiers: (8) GERD (gastroesophageal reflux disease) Status: Chronic (9) Tobacco dependence Status: Chronic History of Present Illness Date of Admission: 01/13/19 Chief Complaint: Near syncope and near fall The patient is a 58 year old M with history of COPD, obstructive sleep apnea on BiPAP at night follows Dr. Krishna sarkar [facility] came to ER with dizziness, near syncope and almost near fall when he went to bathroom last night. He denies syncope or fall. He woke up to go to bathroom and felt dizzy lightheaded and then sat on the toilet for urination. Dizziness got worse but he did not pass out. Denies chest pain, worsening of shortness of breath, palpitation/arrhythmia, or diaphoresis. In ED, he was found hypotensive 83/65 heart rate 83. On orthostatic blood pressure drop 107/78, heart rate 87-80 3/65, heart rate 71 on standing. Dizziness has resolved. [] EKG shows normal sinus rhythm at 82 bpm, LAD with left anterior fascicular block. No significant change from previous EKG of 11/28/2018 and September 2018. In September 2018 he was admitted for chest pain and was discharged with negative nuclear stress test. Past Medical History Past Medical History (Chronic Problems): Chronic Problems (Last Updated 12/05/18 @ 10:18 by Silvana Baker) Bipolar 1 disorder (Chronic) Rheumatoid arthritis (Chronic) Depression (Chronic) TIFFANIE (obstructive sleep apnea) (Chronic) COPD (chronic obstructive pulmonary disease) (Chronic) GERD (gastroesophageal reflux disease) (Chronic) Tobacco dependence (Chronic) Medical History: Medical History (Last Updated 12/05/18 @ 10:18 by Silvana Baker) Bipolar 1 disorder (Chronic) F31.9 Rheumatoid arthritis (Chronic) M06.9 Depression (Chronic) F32.9 TIFFANIE (obstructive sleep apnea) (Chronic) G47.33 COPD (chronic obstructive pulmonary disease) (Chronic) J44.9 GERD (gastroesophageal reflux disease) (Chronic) K21.9 Tobacco dependence (Chronic) F17.200 Allergies No Known Allergies Allergy (Verified 01/13/19 03:48) Home Medications: Ambulatory Orders Medication Instructions Recorded albuterol sulfate HFA 90 2 puff INHALATION Q4H PRN #1 device 12/05/18 mcg/actuation aerosol inhaler bupropion HCl SR 150 mg tablet,12 150 mg PO DAILY 12/05/18 hr sustained-release hydroxyzine pamoate 50 mg capsule 50 mg PO Q6H 12/05/18 omeprazole 40 mg capsule,delayed 40 mg PO DAILY 12/05/18 release pyridoxine (vitamin B6) 100 mg 100 mg PO DAILY 12/05/18 tablet quetiapine 100 mg tablet 200 mg PO ONCE HS tab 12/05/18 quetiapine 50 mg tablet 50 mg PO DAILY tab 12/05/18 Fluticasone/Umeclidin/Vilanter 1 puff IH DAILY 01/13/19 [Trelegy Ellipta 100-62.5-25] Surgical History: Surgical History (Last Reviewed 10/10/18 @ 16:18 by ROSA Saenz) History of knee surgery (Inactive) Z98.890 Surgical History: - - Arthroscopic knee surgery. Psychiatric History: Depression Smoking Status: Current every day smoker Tobacco Use: Cigarettes - *Family History Maternal Family History: Family History (Last Reviewed 10/10/18 @ 16:18 by ROSA Saenz) Father Diabetes Gout Cancer Heart disease Mother Hypertension Arthritis History Items: Heart Disease, Hypertension Paternal Family History: Family History (Last Reviewed 10/10/18 @ 16:18 by ROSA Saenz) Father Diabetes Gout Cancer Heart disease Mother Hypertension Arthritis History Items: Cancer - from lung cancer, Heart Disease Review of Systems Constitutional: Denies: Chills, Fever, Weight Change HEENT: Denies: Head Aches, Sinus Congestion, Sinus Drainage Cardiovascular: Reports: Light Headedness. Denies: Chest Pain, Palpitations Respiratory: Reports: Shortness of breath upon exertion - Chronic due to COPD. Denies: Cough, Shortness of breath at rest, Sputum production Gastrointestinal: Denies: Abdominal Pain, Nausea, Vomiting Genitourinary: Denies: Dysuria, Frequency, Hesitancy, Urgency Musculoskeletal: Denies: Joint Pain, Joint Tenderness Skin: Denies: Rash, Wounds Neurological: Denies: Numbness, Tingling, Focal weakness Psychiatric: Denies: Anxiety, Depression, Homicidal Ideations, Suicidal Ideations Hematologic/ Lymphatic: Denies: Easy Bruising, Easy Bleeding VTE Information - Inpt Only VTE Present on Admission: No VTE Mechan Device Prophylaxis: None VTE Pharm Prophylaxis ordered?: Yes Patient Problems: Active and Suspected Problems (Last Updated 12/05/18 @ 10:18 by Silvana Baker) Near syncope (Acute) - Physical Exam General: Alert, Oriented x3, Cooperative HEENT: Atraumatic, PERRLA, EOMI, Normocephalic Neck: Supple, No JVD, Negative Carotid Bruits Lungs: Clear to auscultation, No rhonchi, No wheeze, No rales, Diminished - Entry severely diminished in all lung wren seems chronic. Cardiovascular: Regular rate, Regular Rhythm, Normal S1, Normal S2, No murmurs Abdomen: Bowel Sounds Present, Soft, Non Tender, Non-Distended Extremities: No edema, Capillary Refill Less than 3 Seconds Skin: No rashes, No breakdown Musculoskeletal: No Tenderness to Palpation of Joints or Extremities, Arthritic Changes Neurological: Cranial nerves II-XII grossly intact, Deep Tendon Reflexes 2+/4 and Symmetrical, Neuro grossly intact Psych/Mental Status: Normal Affect, Appropriate Vital Signs Temp Pulse Resp BP Pulse Ox 97.4 F L 83 21 H 118/92 H 95 01/13/19 03:49 01/13/19 04:52 01/13/19 04:52 01/13/19 04:52 01/13/19 04:52 Oxygen Delivery Method Room Air Weight: 201 lb 4.513 oz Body Mass Index (BMI) 31.5 Intake and Output for Last 24 Hours 01/11/19 01/12/19 01/13/19 23:59 23:59 23:59 Intake Total 1000 / 1000 Balance 1000 / 1000 Laboratory Tests Past 24 Hrs 01/13/19 01/13/19 03:55 03:55 WBC 9.5 RBC 5.63 Hgb 16.4 Hct 48.7 MCV 86.5 MCH 29.1 MCHC 33.7 RDW Std Deviation 37.7 RDW Coeff of Desmond 11.9 Plt Count 284 MPV 9.0 Immature Gran % (Auto) 0.800 Neut % (Auto) 52.9 Lymph % (Auto) 32.8 [place] % (Auto) 8.4 Eos % (Auto) 3.5 Baso % (Auto) 1.6 H Absolute Neuts (auto) 5.1 Absolute Lymphs (auto) 3.13 Nucleated RBC % 0 Sodium 137 Potassium 2.8 L Chloride 98 Carbon Dioxide 30.0 Anion Gap 9 BUN 10 Creatinine 1.36 H Estim Creat Clear Calc 54.68 Est GFR (MDRD) Af Amer 69 Est GFR (MDRD) Non-Af 57 L BUN/Creatinine Ratio 7.4 L Glucose 128 H Calcium 8.8 Troponin I < 0.015 Assessment/Plan All Active Problems (Last Updated 12/05/18 @ 10:18 by Silvana Baker) Near syncope (Acute) Chest pain (Resolved) The patient is a 58 year old M with history of COPD, obstructive sleep apnea on BiPAP at night follows Dr. Keller on [facility] came to ER with dizziness, near syncope and almost near fall when he went to bathroom last night. He denies syncope or fall. Denies chest pain, worsening of shortness of breath, palpitation/arrhythmia, or diaphoresis. In ED, he was found hypotensive 83/65 heart rate 83. On orthostatic blood pressure drop 107/78, heart rate 87-80 3/65, heart rate 71 on standing. Dizziness has resolved. [] EKG shows normal sinus rhythm at 82 bpm, LAD with left anterior fascicular block. No significant change from previous EKG of 11/28/2018 and September 2018. In September 2018 he was admitted for chest pain and was discharged with negative nuclear stress test. 1. Near syncope possible related to orthostatic hypotension most probably from medications: Patient said he was recently prescribed antihypertensive medication and takes once daily in the morning. He does not know the name. It is not listed in patient's home medication. Patient got normal saline 1 L bolus in ED. IV fluid Ringer lactate at 100 mils per hour. Most recent blood pressure, 118/92 heart rate 80/min. No tachypnea. Serial troponin enzymes. 2D echo in the morning. 2. COPD, obstructive sleep apnea on BiPAP with continued cigarette/nicotine dependence: No exacerbation. Patient saw Dr. Keller on December 05, 2018. He still smokes cigarette despite counseling. PFT in August 2018 showed moderate obstructive lung disease try allergy and as needed albuterol. Also has obstructive sleep apnea on BiPAP with pressure support 17/03. Has 8 mm pulmonary nodule on CT chest from 2018. Advised to continue follow-up with Dr. Keller. Currently smokes half pack per day. Chest x-ray does not show acute change but bibasilar subsegmental atelectasis or scarring. 3. Hypokalemia: K2.8. Patient got 1 dose of care during ER. Order 40 M EQ K. Dur x2 every 3 hourly we will repeat BMP in about 10 AM. Check magnesium and phosphorus. 4. CKD stage III: Creatinine stable at 1 about 1.35 since September 2018. 5. Other comorbidities include rheumatoid arthritis, depression with bipolar disorder, GERD: Home medications reconciliation done. Patient is on high-dose hydroxyzine 50 mg every 6 hourly along with quite a pain 50 mg daily and 100 mg at night. There is a potential medications for hypotension/orthostatic hypotension DVT prophylaxis: On Lovenox 40 mg subcu daily Clinical Impression(s) from Imaging Studies Chest X-Ray 01/13/19 04:00 IMPRESSION: Stable exam. Bibasilar mild subsegmental atelectasis or scarring. at 0433 Reported and signed by: Crow Granado MD Electronically Signed: Crow Granado, at 4:31 EDT Tel , Service support , Code Visit OBSV E&M: 15622 Initial observation care L3
--- NOTE | 2019-01-13 05:55 | ECHOD_ITS ---
Reason For Study: SYNCOPE/NEAR SYNCOPE Procedure This was a 2D Doppler, Color Flow transthoracic echocardiogram. The study was technically difficult. Exam performed portable in patient room. Left Ventricle Normal LV size. Left ventricular systolic function is normal. The estimated ejection fraction is 60 %. Diastolic function is indeterminate. No regional wall motion abnormalities noted. Right Ventricle Normal RV size. Normal systolic function. Atria Normal left atrium. Normal right atrium. No doppler evidence for ASD. Mitral Valve There is no mitral annular calcification. Normal mitral valve. Trivial mitral valve insufficiency. Tricuspid Valve Normal tricuspid valve. Trivial tricuspid valve insufficiency. Unable to estimate RV systolic pressure/pulmonary artery pressure due to technically difficult study. Aortic Valve Trisinus/trileaflet aortic valve. Mild focal aortic valve calcification. Pulmonic Valve The pulmonic valve is not well visualized. Great Vessels Normal sized aortic root. Pericardium/Pleural No pericardial effusion. MMode/2D Measurements & Calculations LVIDd: 4.7 cm IVSd: 1.2 cm Ao root diam: 3.3 cm LVIDs: 3.1 cm LVPWd: 1.1 cm RVDd: 3.4 cm FS: 33.6 % LAV(MOD-bp): 59.5 ml LA A4 area: 19.5 cm2 LA dimension(2D): 3.5 cm LAV(MOD-bp) Indexed: 29.4 ml/m2 LAV(MOD-sp2): 58.3 ml LAV(MOD-sp4): 56.7 ml RA A4 area: 14.5 cm2 Time Measurements MV dec time: 0.18 sec Doppler Measurements & Calculations MV E max lorne: 55.4 cm/sec Lat Peak E' Lorne: 6.3 cm/sec Med Peak E' Lorne: 5.7 cm/sec MV A max lorne: 75.2 cm/sec E/E' lat: 8.8 E/E' med: 9.6 MV E/A: 0.74 Ao V2 max: 93.7 cm/sec LV V1 max: 74.1 cm/sec PA V2 max: 75.8 cm/sec Ao max P.5 mmHg LV V1 max P.2 mmHg Interpretation Summary The study was technically difficult. Left ventricular systolic function is normal. The estimated ejection fraction is 60 %. Trivial mitral valve insufficiency. Trivial tricuspid valve insufficiency. Mild focal aortic valve calcification. Unable to estimate RV systolic pressure/pulmonary artery pressure due to technically difficult study. Diastolic function is indeterminate. Ordering Physician: Moises Liu Referring Physician: Chris Weir Performed By: Zaynab George RDCS, RVT
[2019-01-13 06:00] LABS: Magnesium 1.6 mg/dL (1.6-2.6); Phosphorus 3.1 mg/dL (2.5-4.9); Thyroid Stim Hormone (TSH) 1.22 uIU/mL (0.358-3.74)
[2019-01-13] MEDS: Lactated Ringers 1,000 ML 100 ML IV ×3 (06:16→23:44)
[2019-01-13] MEDS: hydrOXYzine PAM 25 MG Capsule PO ×4 (06:17→23:32)
[2019-01-13] MEDS: Budesonide Respules 0.5 MG/2 ML AMPUL.NEB. INHALATION ×2 (06:47→18:55)
[2019-01-13] MEDS: Ipratropium/Albuterol Sulfate 3 ML AMPUL.NEB INHALATION ×3 (06:47→18:55)
--- NOTE | 2019-01-13 06:56 | CPS ---
First Pulmicort vial got dumped
[2019-01-13] MEDS: Enoxaparin 40 MG/0.4 ML Syringe SC (09:06)
[2019-01-13] MEDS: Pantoprazole Sodium 40 MG Tablet PO (09:07)
[2019-01-13] MEDS: Pyridoxine HCl 100 MG Tablet PO (09:07)
[2019-01-13] MEDS: buPROPion (SR) 150 MG Tablet.SA PO (09:07)
[2019-01-13] MEDS: QUEtiapine 25 MG Tablet 50 MG PO (09:07)
[2019-01-13] MEDS: Famotidine 20 MG Tablet PO ×2 (09:07→23:32)
[2019-01-13 12:27] LABS: Anion Gap 5 (5-15); BUN 8 mg/dL (7-18); BUN/Creat Ratio 6.2 RATIO (10-20); Calcium,Total 8.5 mg/dL (8.5-10.1); Chloride 103 mmol/L (98-107); Creatinine, Serum 1.29 mg/dL (0.70-1.30); EST Glomerular Filtration Rate 60 mL/min (>60); Est Glom Filt Rate - Afr Amer 73 mL/min (>60); Estimated Creatinine Clearance 57.65 ml/min; Glucose 119 mg/dL (74-106); Potassium 3.6 mmol/L (3.5-5.1); Sodium Level 139 mmol/L (136-145)
[2019-01-13] MEDS: Mirtazapine 15 MG Tablet PO (23:32)
[2019-01-13] MEDS: QUEtiapine 100 MG Tablet PO (23:33)
[2019-01-14 04:13] VITALS: BP 114/73; PULSE 72; RESP 18; TEMP 36.7; O2SAT 96
[2019-01-14 06:01] VITALS: PULSE 64
[2019-01-14 06:30] VITALS: BP 126/91; BP 147/94; BP 151/94; PULSE 67; PULSE 68; PULSE 70
[2019-01-14 06:50] VITALS: BP 147/94; PULSE 69; RESP 16; TEMP 36.5; O2SAT 96
[2019-01-14] MEDS: hydrOXYzine PAM 25 MG Capsule PO (07:00)
[2019-01-14 07:07] LABS: Anion Gap 3 (5-15); BUN 11 mg/dL (7-18); BUN/Creat Ratio 8.9 RATIO (10-20); Calcium,Total 8.3 mg/dL (8.5-10.1); Chloride 110 mmol/L (98-107); Creatinine, Serum 1.24 mg/dL (0.70-1.30); EST Glomerular Filtration Rate 63 mL/min (>60); Est Glom Filt Rate - Afr Amer 77 mL/min (>60); Estimated Creatinine Clearance 59.97 ml/min; Glucose 108 mg/dL (74-106); Potassium 3.4 mmol/L (3.5-5.1); Sodium Level 145 mmol/L (136-145)
[2019-01-14 07:10] VITALS: PULSE 70; RESP 16; O2SAT 96
[2019-01-14] MEDS: Budesonide Respules 0.5 MG/2 ML AMPUL.NEB. INHALATION (07:10)
[2019-01-14] MEDS: Ipratropium/Albuterol Sulfate 3 ML AMPUL.NEB INHALATION (07:10)
--- NOTE | 2019-01-14 08:34 | DCINST_ITS ---
- Discharge Diagnoses Current Active Problems: Current Active and Chronic Problems (Last Updated 12/05/18 @ 10:18 by Silvana Baker) Near syncope (Acute) You will use the following diet at home:: Regular Your food should be the consistency of: Regular Your liquids should be the consistency of: Regular/Thin Discharge Activity: Return to Normal Activity Call your doctor if you observe: Fever of 101 or Higher, Shortness of breath, Dizziness, Fainting spells, Swelling in the ankles, Chest pain, Increased palpitations (irregular heartbeat) Allergies/Adverse Reactions: Allergies No Known Allergies Allergy (Verified 01/13/19 03:48) Medications to take at Discharge albuterol sulfate HFA 90 mcg/actuation aerosol inhaler 2 puff INHALATION Q4H PRN #1 device 12/05/18 bupropion HCl SR 150 mg tablet,12 hr sustained-release 150 mg PO DAILY 12/05/18 hydroxyzine pamoate 50 mg capsule 50 mg PO Q6H 12/05/18 omeprazole 40 mg capsule,delayed release 40 mg PO DAILY 12/05/18 pyridoxine (vitamin B6) 100 mg tablet 100 mg PO DAILY 12/05/18 quetiapine 100 mg tablet 200 mg PO ONCE HS tab 12/05/18 quetiapine 50 mg tablet 50 mg PO DAILY tab 12/05/18 Fluticasone/Umeclidin/Vilanter [Trelegy Ellipta 100-62.5-25] 1 puff IH DAILY 01/13/19 Mirtazapine [Remeron] 15 mg PO QHS 01/13/19 Primary Care Physician: Chris Weir MD [Primary Care Provider] - Please follow up with your Primary Care Physician in: 3-5 days Test Results: Test results from this visit will be discussed in further detail at your follow- up appointment, if applicable.
[2019-01-14 09:05] VITALS: BP 126/89; PULSE 71; PULSE 80; RESP 16; TEMP 36.7; O2SAT 94
--- NOTE | 2019-01-14 09:09 | CASEMGMT ---
This RN RL to room with PIZANO form at this time, explanation done-pt voices understanding, and signs PIZANO form at this time. Pt voices no further questions/concerns/needs at this time. Original to chart and copy to pt at this time. SStkayla GANDARA CM
[2019-01-14] MEDS: Famotidine 20 MG Tablet PO (09:19)
[2019-01-14] MEDS: Pantoprazole Sodium 40 MG Tablet PO (09:19)
[2019-01-14] MEDS: QUEtiapine 25 MG Tablet 50 MG PO (09:19)
[2019-01-14] MEDS: Pyridoxine HCl 100 MG Tablet PO (09:20)
[2019-01-14] MEDS: buPROPion (SR) 150 MG Tablet.SA PO (09:20)
--- NOTE | 2019-01-14 11:05 | PHA.DC.MR ---
Pharmacy Service has performed discharge medication reconciliation for this patient. No new medications from this admission, medications reviewed are previously reported from the home medication list. The patient's discharge medication list was reviewed for discrepancies and discrepancies were resolved. Home Medications albuterol sulfate HFA 90 mcg/actuation aerosol inhaler 2 puff INHALATION Q4H PRN #1 device 12/05/18 bupropion HCl SR 150 mg tablet,12 hr sustained-release 150 mg PO DAILY 12/05/18 hydroxyzine pamoate 50 mg capsule 50 mg PO Q6H 12/05/18 omeprazole 40 mg capsule,delayed release 40 mg PO DAILY 12/05/18 pyridoxine (vitamin B6) 100 mg tablet 100 mg PO DAILY 12/05/18 quetiapine 100 mg tablet 200 mg PO ONCE HS tab 12/05/18 quetiapine 50 mg tablet 50 mg PO DAILY tab 12/05/18 Fluticasone/Umeclidin/Vilanter [Trelegy Ellipta 100-62.5-25] 1 puff IH DAILY 01/13/19 Mirtazapine [Remeron] 15 mg PO QHS 01/13/19
--- NOTE | 2019-01-14 16:28 | DS.PCM_ITS ---
Discharge Date and Diagnosis Date of Admission: 01/13/19 Date of Discharge: 01/14/19 - Secondary Discharge Diagnosis Chronic Problems (Last Updated 12/05/18 @ 10:18 by Silvana Baker) Bipolar 1 disorder (Chronic) Rheumatoid arthritis (Chronic) Depression (Chronic) TIFFANIE (obstructive sleep apnea) (Chronic) COPD (chronic obstructive pulmonary disease) (Chronic) GERD (gastroesophageal reflux disease) (Chronic) Tobacco dependence (Chronic) Hospital Course and Treatment Imaging Results: CXR: IMPRESSION: Stable exam. Bibasilar mild subsegmental atelectasis or scarring Echo: Interpretation Summary The study was technically difficult. Left ventricular systolic function is normal. The estimated ejection fraction is 60 %. Trivial mitral valve insufficiency. Trivial tricuspid valve insufficiency. Mild focal aortic valve calcification. Unable to estimate RV systolic pressure/pulmonary artery pressure due to technically difficult study. Diastolic function is indeterminate. Consults: None Operations: None Procedures: 2-D Echocardiogram Summary of Care Provided: Per HPI: The patient is a 58 year old M with history of COPD, obstructive sleep apnea on BiPAP at [facility] with dizziness, near syncope and almost near fall when he went to bathroom last night. He denies syncope or fall. He woke up to go to bathroom and felt dizzy lightheaded and then sat on the toilet for urination. Dizziness got worse but he did not pass out. Denies chest pain, worsening of shortness of breath, palpitation/arrhythmia, or diaphoresis. In ED, he was found hypotensive 83/65 heart rate 83. On orthostatic blood pressure drop 107/78, heart rate 87-80 3/65, heart rate 71 on standing. Dizziness has resolved. [] EKG shows normal sinus rhythm at 82 bpm, LAD with left anterior fascicular block. No significant change from previous EKG of 11/28/2018 and September 2018. In September 2018 he was admitted for chest pain and was discharged with negative nuclear stress test. Hospital Course: 1. Near syncope- 58-year-old male with history of bipolar disease and COPD presents with an episode of near syncope. He said he had a similar episode about a year ago and nothing was found at that time. He says that this episode occurred in the middle the night when he went to go pee. He sat down on the toilet and began to urinate when he got up he became dizzy and he laid down and he did not resolve very quickly. When he came to the ER he was found to be hypotensive with systolic of 83/65 and a heart rate of 83. He had orthostatic vital signs obtained that were negative, however he states that he has not been drinking as well as he should. He was started on IV fluids and by the day of discharge he felt much better and was wanting to go home. An echo was obtained during his stay which was also unremarkable. And he did not describe any signs or symptoms of a seizure. He is never had a history of seizures either. He denies any signs of palpitations prior to his feeling of near syncope. His telemetry during his stay was negative for any arrhythmias. I discussed with him the risks of going home and he understood that if he has any more episodes and is to return to the hospital care doctor as an outpatient. 2. His other medical diagnoses were evaluated and his home medications were continued where appropriate - Physical Exam General: Alert, Oriented x3, Cooperative, No apparent distress HEENT: Atraumatic, PERRLA, EOMI, Normocephalic Oral: Moist Mucosa Neck: Supple, No JVD Lungs: Clear to auscultation, Normal air movement, No rhonchi, No wheeze, No rales Cardiovascular: Regular rate, Regular Rhythm, Normal S1, Normal S2, No murmurs Abdomen: Soft, Non Tender, Non-Distended, No Hepato-splenomegaly Extremities: No edema, Capillary Refill Less than 3 Seconds Skin: No rashes, No breakdown Neurological: Neuro grossly intact, Sensory exam intact to light touch and pain Psych/Mental Status: Normal Affect, Appropriate Vital Signs Temp Pulse Resp BP Pulse Ox 98.0 F 80 16 126/89 H 94 01/14/19 09:05 01/14/19 09:05 01/14/19 09:05 01/14/19 09:05 01/14/19 09:05 Oxygen Delivery Method Room Air Weight: 200 lb Body Mass Index (BMI) 31.3 Intake and Output for Last 24 Hours 01/12/19 01/13/19 01/14/19 23:59 23:59 23:59 Intake Total 4729.21 / 4729.21 1050 / 1050 Balance 4729.21 / 4729.21 1050 / 1050 Laboratory Tests Past 24 Hrs 01/14/19 05:35 Sodium 145 Potassium 3.4 L Chloride 110 H Carbon Dioxide 32.0 Anion Gap 3 L BUN 11 Creatinine 1.24 Estim Creat Clear Calc 59.97 Est GFR (MDRD) Af Amer 77 Est GFR (MDRD) Non-Af 63 BUN/Creatinine Ratio 8.9 L Glucose 108 H Calcium 8.3 L Discharge Activity: Return to Normal Activity Call your doctor if you observe: Fever of 101 or Higher, Shortness of breath, D izziness, Fainting spells, Swelling in the ankles, Chest pain, Increased palpitations (irregular heartbeat) Home Medications: Medications to take at Discharge albuterol sulfate HFA 90 mcg/actuation aerosol inhaler 2 puff INHALATION Q4H PRN #1 device 12/05/18 bupropion HCl SR 150 mg tablet,12 hr sustained-release 150 mg PO DAILY 12/05/18 hydroxyzine pamoate 50 mg capsule 50 mg PO Q6H 12/05/18 omeprazole 40 mg capsule,delayed release 40 mg PO DAILY 12/05/18 pyridoxine (vitamin B6) 100 mg tablet 100 mg PO DAILY 12/05/18 quetiapine 100 mg tablet 200 mg PO ONCE HS tab 12/05/18 quetiapine 50 mg tablet 50 mg PO DAILY tab 12/05/18 Fluticasone/Umeclidin/Vilanter [Trelegy Ellipta 100-62.5-25] 1 puff IH DAILY 01/13/19 Mirtazapine [Remeron] 15 mg PO QHS 01/13/19 Primary Care Physician: Chris Weir MD [Primary Care Provider] - Please follow up with your Primary Care Physician in: 3-5 days Disposition: Home Minutes spent on discharge:: 35 Patient Condition:: Good Medical Necessity - Tobacco Use Smoking Status: Current every day smoker Tobacco Use: Cigarettes Meaningful Use Info Meaningful Use Diagnoses (Choose all that apply): None applicable Code Visit OBSV E&M: 26186 Observation care discharge
== END 2019-01-14 12:29 | disposition home or self-care (01) ==
LOC: ED 04:04 → PCU 05:22
PROVIDERS: Admitting Provider Internal Medicine; Emergency Provider Emergency Medicine; Family Provider Family Medicine; PCP Family Medicine; Referring Provider Internal Medicine; Visit Provider Family Medicine
DX: R55 Syncope and collapse (principal); G47.33 Obstructive sleep apnea (adult) (pediatric); J44.9 Chronic obstructive pulmonary disease, unspecified; K21.9 Gastro-esophageal reflux disease without esophagitis; M06.9 Rheumatoid arthritis, unspecified; F31.9 Bipolar disorder, unspecified; I08.1 Rheumatic disorders of both mitral and tricuspid valves; I44.4 Left anterior fascicular block; F17.210 Nicotine dependence, cigarettes, uncomplicated; E87.6 Hypokalemia; N18.3 Chronic kidney disease, stage 3 (moderate); Z79.899 Other long term (current) drug therapy; Z79.51 Long term (current) use of inhaled steroids
CPT/HCPCS: 36415; 71045; 80048; 83735; 84100; 84443; 84484; 85025; 93005; 93306; 94640; 96361; 96372; 96374; 99218; 99285; 99406; J7030; J7120; A4216; G0378; J2405

== ENCOUNTER → 2019-01-20 14:00 | Outpatient (CLI) | payer MEDICARE, SELFPAY ==
[2019-01-13 05:32] VITALS: BMI 31.3
[2019-01-20 15:48] LABS: Anion Gap 6 (5-15); BUN 11 mg/dL (7-18); BUN/Creat Ratio 7.2 RATIO (10-20); Calcium,Total 9.1 mg/dL (8.5-10.1); Chloride 100 mmol/L (98-107); Creatinine, Serum 1.53 mg/dL (0.70-1.30); EST Glomerular Filtration Rate 50 mL/min (>60); Est Glom Filt Rate - Afr Amer 60 mL/min (>60); Glucose 102 mg/dL (74-106); Potassium 3.9 mmol/L (3.5-5.1); Sodium Level 137 mmol/L (136-145)
== END ==
PROVIDERS: Family Provider Family Medicine; PCP Family Medicine; Referring Provider Family Medicine; Visit Provider Nurse Practitioner Adult Health
DX: E86.0 Dehydration (principal)
CPT/HCPCS: 36415; 80048

== ENCOUNTER → 2019-01-23 13:45 | Outpatient (CLI) | payer MEDICARE, SELFPAY ==
[2019-01-13 05:32] VITALS: BMI 31.3
[2019-01-23 16:10] LABS: Hemoglobin A1c 5.3 % (4.2-6.3)
== END ==
PROVIDERS: Family Provider Family Medicine; PCP Family Medicine; Referring Provider Family Medicine; Visit Provider Family Medicine
DX: R73.09 Other abnormal glucose (principal)
CPT/HCPCS: 36415; 83036

== ENCOUNTER 2019-02-10 17:10 | Emergency (ER) | payer MEDICARE, SELFPAY ==
[2019-01-13 05:32] VITALS: BMI 31.3
[2019-02-10 17:11] VITALS: BP 125/78; PULSE 107; RESP 18; TEMP 36.8; O2SAT 95; BMI 30.2
--- NOTE | 2019-02-10 17:32 | ED.VISSUMM ---
- ER Visit Summary Date of Service: 02/10/19 Chief Complaint: Constipation History of Present Illness: The patient is a 59 M past male history of hypertension and COPD. Patient states he has not a bowel movement for 8 days since the last week and a days ago. He denies any nausea or vomiting. Denies abdominal pain. No prior history. States he drank a lot of water and use magnesium citrate without relief. Physical Examination: Older male no acute distress vital signs stable afebrile. HEENT exam unremarkable. Neck nontender no lymphadenopathy. Lungs clear to auscultation. Heart regular rhythm no murmur. Abdomen mildly distended nontender. Normal bowel sounds no peritoneal signs. No obvious hernias or masses. Patient moving all 4 extremities. Back nontender. Neurologically is awake alert. No focal motor deficits. Test Results: Single view KUB shows increased stool in the rectum but otherwise unremarkable. No signs of obstruction. Read both myself and the radiologist. Single view. Emergency Department Course and Treatment: There is attempted a soapsuds enema the patient was unable to retain it long enough for results. I went and evaluate the patient his abdomen is benign. On repeat exam he and I discussed manual disimpaction which he actually did not want and states he will use magnesium citrate again at home. Treatment Plan: Magnesium citrate. Plenty of fluids, fiber and prune juice. Follow-up if not improving. Disposition: Discharge Impression: Acute constipation This note was generated with [employer] dictation software. It may contain incorrect words, spelling, and punctuation that were not noted in review of the chart prior to signing ED Disposition - Plan for ED Patient: Referrals: Chris Weir MD [Primary Care Provider] -
--- NOTE | 2019-02-10 17:37 | RAD_ITS ---
STUDY: X-RAY - ABDOMEN/PELVIS REASON FOR EXAM: Male, 59 years old. Constipation. Pain TECHNIQUE: Two AP supine views of the abdomen and pelvis. COMPARISON: None. FINDINGS: Normal visualized lung bases. There is an unremarkable bowel gas pattern. There is no demonstrated free abdominal air. The visualized liver, spleen and kidneys are grossly normal in size and morphology. There are calcified phleboliths in the pelvis. Normal visualized osseous structures. RAD/Abdomen Single View IMPRESSION: Normal x-ray examination of the abdomen and pelvis. Electronically Signed: Cedrick Pollock MD at 18:09 EST , Service support ,
[2019-02-10 19:46] VITALS: RESP 16
--- NOTE | 2019-02-10 21:31 | ED.DEP ---
ED Disposition - Plan for ED Patient: Disposition: Home or Assisted Living Instructions: CONSTIPATION (Adult) Referrals: Chris Weir MD [Primary Care Provider] - 3-5 Days if not improving Additional Instructions: Drink plenty of water, prune juice and magnesium citrate. Take the whole bottle first thing in the morning. If no bowel movement within 4 hours take a second bottle. Follow-up if not improving return if feeling worse.
[2019-02-10] MEDS: Magnesium Citrate 300 ML PO (21:37)
== END 2019-02-10 21:38 | disposition home or self-care (01) ==
PROVIDERS: Emergency Provider Emergency Medicine; Family Provider Family Medicine; PCP Family Medicine
DX: K59.00 Constipation, unspecified (principal); I10 Essential (primary) hypertension; J44.9 Chronic obstructive pulmonary disease, unspecified; F17.200 Nicotine dependence, unspecified, uncomplicated; Z79.899 Other long term (current) drug therapy
CPT/HCPCS: 74018; 99283

== ENCOUNTER → 2019-03-31 07:52 | Outpatient (CLI) | payer MEDICARE, SELFPAY ==
[2019-03-13 08:05] VITALS: BMI 29.7
--- NOTE | 2019-03-31 08:30 | PET_ITS ---
EXAMINATION: FDG PET/CT INDICATIONS: A 59-year-old male with history of pulmonary nodularity. COMPARISON EXAMINATION: CT of the chest report dated 12/19/18 INDEX LESION SIZE SUV INTERPRETATION Left mid posteromedial lung-left lower lobe 9.5-mm (frame 229) 1.0 Quantitative criteria for viable neoplasm are not fulfilled, sequential radiologic investigation recommended TECHNIQUE: Following the intravenous administration of 14.6 mCi of F-18 deoxyglucose via the left antecubital fossa, multiplanar image acquisitions of the neck, chest, abdomen and pelvis to level of mid thigh, obtained at one hour post radiopharmaceutical administration contemporaneously interpreted with the current CT of the neck, chest, abdomen and pelvis to level of mid thigh, dated 03/31/[address] of the chest report dated 12/19/18 reveal: SERUM GLUCOSE LEVEL: 127 mg/dl. HEIGHT: 67 inches. WEIGHT: 196 lbs. FINDINGS: 1. Barely perceptible increased FDG concentration is noted in the left mid posteromedial lung-left lower lobe generating a calculated maximal standard uptake value of 1.0. The maximal axial diameter of the corresponding non-calcified parenchymal density on review of CT of the chest dated 03/31/19 is 9.5-mm (AP). 2. Normal physiologic distribution of the radiopharmaceutical is apparent in the hepatic (2.7) and splenic parenchyma, both renal units, bladder and visualized prominent intestinal tract. The visualized portion of the cerebral cortex demonstrate symmetric and preserved glucose metabolism. There is facilitated radiopharmaceutical concentration observed in the left ventricular myocardium consistent with the pattern associated with failure to fast. (Leonora and Lowlucero, Journal of Nuclear Medicine Technology 31:3, 2003). Enhanced uptake is identified in the right hip involving the femoral head-acetabular interface consistent with degenerative arthritis. Pertinent CT findings are as follows: CHEST: Coronary arterial calcification is observed. There is atherosclerotic calcification defined in the thoracic aorta without evidence of dilatation-aneurysm formation. Bilateral axillary soft tissue densities with fatty hilus are non-glucose avid. Mediastinal soft tissue is ametabolic. Linear parenchymal densities noted in the bilateral lower anterior lung zones are non-glucose avid. ABDOMEN AND PELVIS: There is atherosclerotic calcification defined in the abdominal aorta without evidence of dilatation-aneurysm formation. Pelvic arterial calcification is observed. Right-left inguinal soft tissue with fatty hilus is ametabolic. Calcified phlebolith formation is noted in the right-left lower hemipelvis without evidence of facilitated FDG uptake. SKELETAL: Degenerative changes are noted in the cervical, thoracic and lumbar spine. PET/PET/CT Tumor Base -Thigh Init IMPRESSION: 1. NEGATIVE EXAMINATION. There is no definitive quantitative scintigraphic evidence of viable neoplasm. 2. Subtle increased glucose concentration observed in the left lower posterior lung-left lower lobe does not fulfill quantitative criteria for viable neoplasm. (Interiano et al, Annals of Internal Medicine, 138:724, 2003). 3. Metabolic and/or anatomic stability may be ensured in the left hemithorax pulmonary parenchymal abnormality with repeat FDG PET study and/or CT of the thorax in 3-6 months. (Xiu, Journal of Nuclear Medicine 45:88, P2004 Rachel, Seminars in Thoracic and Cardiovascular Surgery 14:292, 2002). Electronic Signature Jm Bhatia D.O. Electronically Signed: Jm Bhatia DO at 14:58 EST Tel , Service support ,
== END ==
PROVIDERS: Family Provider Family Medicine; PCP Family Medicine; Referring Provider Internal Medicine Critical Care Medicine; Visit Provider Internal Medicine Critical Care Medicine
DX: R91.1 Solitary pulmonary nodule (principal)
CPT/HCPCS: 78815; A9552

== ENCOUNTER → 2019-04-07 11:14 | Outpatient (CLI) | payer MEDICARE, SELFPAY ==
[2019-03-13 08:05] VITALS: BMI 29.7
[2019-04-07 12:27] LABS: Absolute Lymphocyte Count 2.23 X10^3/uL (0.83-4.51); Absolute Neutrophil Count 6.5 X10^3/uL (2.0-7.7); Basophil# 0.14 X10^3/uL; Basophil% 1.3 % (0-1); Eosinophil# 0.49 X10^3/uL; Eosinophils% 4.6 % (0-5); Hemoglobin 16.2 g/dL (13.0-16.5); Lymphocyte # 2.23 X10^3/ul (4.0); Lymphocyte % 20.8 % (19-41); Mean Corp Hgb Conc 33.1 g/dL (32-36); Mean Corpuscular Hgb 26.4 pg (27.0-32.0); Mean Corpuscular Volume 79.8 fL (80-94); Mean Platelet Vol. 9.2 fl (6.2-12.0); Monocyte# 1.31 X10^3/uL; Monocyte% 12.2 % (0-10); NRBC Flagged by Analyzer 0 % (0-5); Neutrophil # 6.48 X10^3/uL (2.7-7.7); Neutrophil % 60.6 % (47-70); Platelet Count 353 K/mm3 (150-450); RBC Distribution Width SD 34.4 fl (35.1-43.9); Red Blood Count 6.14 M/mm3 (4.6-6.2); White Blood Count 10.7 K/mm3 (4.4-11.0)
[2019-04-07 12:55] LABS: AST(SGOT) 15 U/L (15-37); Alanine Aminotransfer ALT/SGPT 27 U/L (16-61); Albumin, Serum 3.2 g/dL (3.2-5.0); Alkaline Phosphatase 98 U/L (45-117); Anion Gap 6 (5-15); BUN 8 mg/dL (7-18); BUN/Creat Ratio 5.8 RATIO (10-20); Calcium,Total 8.2 mg/dL (8.5-10.1); Chloride 96 mmol/L (98-107); Cholesterol 273 mg/dL (200); Creatinine, Serum 1.38 mg/dL (0.70-1.30); EST Glomerular Filtration Rate 56 mL/min (>60); Est Glom Filt Rate - Afr Amer 68 mL/min (>60); Ferritin 270 ng/mL (26-388); Globulin 3.3 g/dL (2.2-4.2); Glucose 102 mg/dL (74-106); High Density Lipoprotein 40 mg/dL; Iron 167 ug/dL (65-175); Iron Binding Capacity,Total 321 ug/dL (250-450); Phosphorus 2.7 mg/dL (2.5-4.9); Potassium 2.8 mmol/L (3.5-5.1); Protein, Total 6.5 g/dL (6.4-8.2); Sodium Level 135 mmol/L (136-145); Triglycerides 683 mg/dL
[2019-04-07 12:59] LABS: Hemoglobin A1c 5.6 % (4.2-6.3); Vitamin D,25 Hydroxy 16.7 ng/mL (29.95-100.01)
== END ==
PROVIDERS: Family Provider Family Medicine; PCP Family Medicine; Visit Provider Family Medicine
DX: I10 Essential (primary) hypertension (principal); E55.9 Vitamin D deficiency, unspecified; R73.09 Other abnormal glucose; E78.5 Hyperlipidemia, unspecified; E83.19 Other disorders of iron metabolism
CPT/HCPCS: 36415; 80053; 80061; 82306; 82728; 83036; 83540; 83550; 84100; 85025

== ENCOUNTER 2019-04-13 07:11 | Emergency (ER) | payer MEDICARE, SELFPAY ==
[2019-03-13 08:05] VITALS: BMI 29.7
[2019-04-13 07:12] VITALS: BP 142/89; PULSE 102; RESP 17; TEMP 36.6; O2SAT 98; BMI 30.5
--- NOTE | 2019-04-13 07:24 | ED.DCSUM_ITS ---
History of Present Illness Chief Complaint: Lower Extremity Injury Detail of Chief Complaint: Left ankle pain and swelling Informant: Patient Onset: Days - 3 days Context: Gradual Onset Current Severity: Moderate Maximum Severity: Moderate Narrative: Patient presents with pain and swelling to the left ankle. He denies any known injury. He states he has had similar flares in the past on both of his ankles. He does have a history of rheumatoid arthritis but is never been told if these flares are secondary to RA or gout. Patient denies fever or chills. He has had difficulty ambulating and states he is been crawling around his apartment. - Past Medical History (1) Bipolar 1 disorder Status: Chronic (2) COPD (chronic obstructive pulmonary disease) Status: Chronic (3) Depression Status: Chronic (4) GERD (gastroesophageal reflux disease) Status: Chronic (5) TIFFANIE (obstructive sleep apnea) Status: Chronic (6) Rheumatoid arthritis Status: Chronic Past Medical History - Allergies and Home Meds Allergies/Adverse Reactions: Allergies No Known Allergies Allergy (Verified 04/13/19 07:12) Primary Care Physician: Chris Weir MD [Primary Care Provider] - Prior records reviewed: Yes Surgical History: - - Arthroscopic knee surgery. Smoking Status: Current every day smoker - Family History Maternal Family History: Family History (Last Reviewed 03/13/19 @ 10:13 by Ann Hu) Father Diabetes Gout Cancer Heart disease Mother Hypertension Arthritis Family History: Reports: Heart Disease, Hypertension Paternal Family History: Family History (Last Reviewed 03/13/19 @ 10:13 by Ann Hu) Father Diabetes Gout Cancer Heart disease Mother Hypertension Arthritis Family History: Reports: Cancer - from lung cancer, Heart Disease Review of Systems General: Denies: Chills, Fever Eyes: Denies: Visual changes - bilaterally ENT: Denies: Bilateral ear pain Cardiovascular: Denies: Chest pain Respiratory: Denies: Dyspnea, Cough Gastrointestinal: Denies: Abdominal pain, Nausea, Vomiting, Diarrhea Genitourinary: Denies: Dysuria Musculoskeletal: Reports: Arthralgias, Extremity Pain. Denies: Back pain Skin: Denies: Rash Neurological: Denies: Weakness, Parasthesia Physical Exam Vital Signs/Narrative: Vital Signs Temp Pulse Resp BP Pulse Ox 04/13/19 07:12 97.9 F 102 H 17 142/89 H 98 Inital Vital Signs reviewed: Yes General: Well nourished, Well developed Head: Normocephalic ENT: Moist mucous membranes Neck: Supple Cardiovascular: Regular rate, Regular rhythm Respiratory: No distress, CTA bilaterally Abdomen: Soft, Nontender Extremities: Tenderness, - - Tenderness outpatient and edema around the left ankle. No significant erythema or warmth. He does have some tenderness over the midfoot with minimal erythema. Strong distal pulses are noted. No tenderness at the knee or hip. Neurological: Alert, Oriented x3 Psychological: Normal affect Diagnostic/Tx/Re-eval - Medical Decision Making I discussed with the patient that without sampling the synovial fluid I cannot tell if it is just an RA flare or gout. This is not, however, change our treatment plan. Patient be treated with steroids and pain medication. He will receive first dose of steroid here and prescriptions will be sent to the pharmacy for him. He did drive himself here so will not receive pain medication while in the emergency room. ED Disposition - Plan for ED Patient: Disposition: Home or Assisted Living Diagnosis: Rheumatoid arthritis Instructions: Rheumatoid Arthritis Prescriptions: Prednisone [Deltasone] 60 mg PO DAILY #15 tab Transmission Status: Pending to [facility] Hydrocodone Bitart/Apap 5-325 [[place] 5MG-325MG] 1 tablet PO Q6H PRN PRN 3 Days #10 tablet PRN Reason: Pain Transmission Status: Received by MARYAM CH[facility] Referrals: Chris Weir MD [Primary Care Provider] - 1 Week
[2019-04-13] MEDS: predniSONE 20 MG Tablet 60 MG PO (07:31)
== END 2019-04-13 07:42 | disposition home or self-care (01) ==
PROVIDERS: Emergency Provider Emergency Medicine; Family Provider Family Medicine; PCP Family Medicine
DX: M06.9 Rheumatoid arthritis, unspecified (principal); F31.9 Bipolar disorder, unspecified; J44.9 Chronic obstructive pulmonary disease, unspecified; F32.9 Major depressive disorder, single episode, unspecified; K21.9 Gastro-esophageal reflux disease without esophagitis; G47.33 Obstructive sleep apnea (adult) (pediatric); Z79.899 Other long term (current) drug therapy; F17.200 Nicotine dependence, unspecified, uncomplicated
CPT/HCPCS: 99283

== ENCOUNTER 2019-06-12 17:14 | Inpatient (IN) | payer MEDICARE, SELFPAY ==
[2019-04-24 09:37] VITALS: BMI 30.5
[2019-06-12] VITALS (11 sets, daily range): BP systolic 116–136; BP diastolic 72–90; PULSE 89–109; RESP 12–26; TEMP 36.5–37.1; O2SAT 89–96; BMI 31.3; BMI 30.7; BMI 30.8
--- NOTE | 2019-06-12 17:22 | EKG12_ITS ---
Test Reason : SOB Blood Pressure : / mmHG Vent. Rate : 099 BPM Atrial Rate : 099 BPM P-R Int : 142 ms QRS Dur : 100 ms QT Int : 344 ms P-R-T Axes : 072 -62 031 degrees QTc Int : 441 ms Sinus rhythm with occasional Premature ventricular complexes Left anterior fascicular block Cannot rule out Inferior infarct (masked by fascicular block?) , age undetermined Abnormal ECG Confirmed by JUDITH TRUJILLO, EVELYN ([id number]), video news editor ROSITA HEWITT ([id number]) on 06/13/2019 1:10:27 PM Referred By: CASH/FELIX Confirmed By:MILKA WONG MD
--- NOTE | 2019-06-12 17:23 | ED.DCSUM_ITS ---
History of Present Illness Chief Complaint: Shortness of Breath Informant: Patient Onset: Days Context: Gradual Onset Current Severity: Moderate Maximum Severity: Moderate Narrative: Patient presents with URI symptoms and worsening of his COPD. Patient states he became ill a couple days ago. Has a lot of chest congestion and cough. He is rarely bringing sputum up. He has not noted fever or chills. He has had increased wheezing and is using his inhalers more than normal. He was recently hospitalized at [place] secondary to colitis. - Past Medical History (1) History of Kay's esophagus Status: Chronic (2) Bipolar 1 disorder Status: Chronic (3) COPD (chronic obstructive pulmonary disease) Status: Chronic (4) Depression Status: Chronic (5) GERD (gastroesophageal reflux disease) Status: Chronic (6) TIFFANIE (obstructive sleep apnea) Status: Chronic (7) Rheumatoid arthritis Status: Chronic (8) Tobacco dependence Status: Chronic Past Medical History - Allergies and Home Meds Allergies/Adverse Reactions: Allergies No Known Allergies Allergy (Verified 04/24/19 09:35) Primary Care Physician: Chris Weir MD [Primary Care Provider] - Prior records reviewed: Yes Surgical History: - - Arthroscopic knee surgery. Lives: Spouse/ Significant Other Smoking Status: Current every day smoker - Family History Maternal Family History: Family History (Last Reviewed 04/24/19 @ 09:33 by Heather Samaniego) Father Diabetes Gout Cancer Heart disease Mother Hypertension Arthritis Family History: Reports: Heart Disease, Hypertension Paternal Family History: Family History (Last Reviewed 04/24/19 @ 09:33 by Heather Samaniego) Father Diabetes Gout Cancer Heart disease Mother Hypertension Arthritis Family History: Reports: Cancer - from lung cancer, Heart Disease Review of Systems General: Denies: Chills, Fever Eyes: Denies: Visual changes - bilaterally ENT: Denies: Bilateral ear pain Cardiovascular: Reports: Chest pain - Heaviness Respiratory: Reports: Dyspnea, Cough, Sputum - Rare sputum, - - Wheezing Gastrointestinal: Denies: Abdominal pain, Nausea, Vomiting, Diarrhea Genitourinary: Denies: Dysuria Musculoskeletal: Denies: Swelling, Extremity Pain Skin: Denies: Rash Neurological: Denies: Headache Allergy: Denies: Uticaria Physical Exam Vital Signs/Narrative: Vital Signs Temp Pulse Resp BP Pulse Ox 06/12/19 17:14 97.9 F 106 H 24 H 125/77 H 91 Inital Vital Signs reviewed: Yes General: Well nourished, Well developed Head: Normocephalic ENT: Moist mucous membranes Neck: Supple Cardiovascular: Regular rate, Regular rhythm Respiratory: Wheezing, - - Speaking full sentences Abdomen: Soft, Nontender Extremities: Nontender Skin: Normal color, No rash Neurological: Alert, Oriented x3, Normal Strength, Normal Sensation Psychological: Normal affect Diagnostic/Tx/Re-eval Impressions Chest X-Ray 06/12/19 18:00 IMPRESSION: There are findings consistent with COPD. There is no evidence of acute chest disease. Electronically Signed: Mckay Cody MD at 18:13 EDT , Service support , 06/12/19 18:00 Chest PA and Lateral [RAD] Stat Laboratory Results 06/12/19 06/12/19 17:35 17:35 WBC 11.9 H RBC 5.82 Hgb 15.3 Hct 47.6 MCV 81.8 MCH 26.3 L MCHC 32.1 RDW Std Deviation 47.7 H RDW Coeff of Desmond 16.7 H Plt Count 345 MPV 8.7 Immature Gran % (Auto) 0.400 Neut % (Auto) 69.8 Lymph % (Auto) 12.9 L [place] % (Auto) 11.8 H Eos % (Auto) 4.0 Baso % (Auto) 1.1 H Absolute Neuts (auto) 8.3 H Absolute Lymphs (auto) 1.54 Nucleated RBC % 0 Sodium 139 Potassium 3.6 Chloride 104 Carbon Dioxide 30.0 Anion Gap 5 BUN 13 Creatinine 1.27 Estim Creat Clear Calc 57.83 Est GFR (MDRD) Af Amer 74 Est GFR (MDRD) Non-Af 61 BUN/Creatinine Ratio 10.2 Glucose 117 H Calcium 9.3 Troponin I 0.038 - EKG Initial EKG Interpretation: Sinus Rhythm - Sinus at 99 with single PVC. No acute ischemia. - Medical Decision Making Patient was given Solu-Medrol, DuoNeb, and 2 albuterol treatments. On repeat evaluation he reports no significant improvement in his symptoms. On auscultation his lungs do sound improved with decreased wheezing. Patient is currently on 2 L nasal cannula. It appears as though his O2 sat dropped to 89% nursing staff placed him on oxygen. At this time patient be given baby aspirin. He is given a dose of Zithromax. He will be admitted for further treatment and evaluation. ED Disposition - Plan for ED Patient: Disposition: Acute Care Hospital [facility] Diagnosis: COPD exacerbation, Chest pain Referrals: Chris Weir MD [Primary Care Provider] -
[2019-06-12] MEDS: Albuterol 2.5 MG/3 ML VIAL.NEB. INHALATION ×2 (17:38)
[2019-06-12] MEDS: Ipratropium/Albuterol Sulfate 3 ML AMPUL.NEB INHALATION ×2 (17:38→23:00)
[2019-06-12 17:55] LABS: Absolute Lymphocyte Count 1.54 X10^3/uL (0.83-4.51); Absolute Neutrophil Count 8.3 X10^3/uL (2.0-7.7); Basophil# 0.13 X10^3/uL; Basophil% 1.1 % (0-1); Eosinophil# 0.48 X10^3/uL; Hematocrit 47.6 % (40-54); Hemoglobin 15.3 g/dL (13.0-16.5); Lymphocyte # 1.54 X10^3/ul (4.0); Lymphocyte % 12.9 % (19-41); Mean Corp Hgb Conc 32.1 g/dL (32-36); Mean Corpuscular Hgb 26.3 pg (27.0-32.0); Mean Corpuscular Volume 81.8 fL (80-94); Mean Platelet Vol. 8.7 fl (6.2-12.0); Monocyte# 1.41 X10^3/uL; Monocyte% 11.8 % (0-10); NRBC Flagged by Analyzer 0 % (0-5); Neutrophil # 8.33 X10^3/uL (2.7-7.7); Neutrophil % 69.8 % (47-70); Platelet Count 345 K/mm3 (150-450); RBC Distribution Width CV 16.7 % (11.6-14.6); RBC Distribution Width SD 47.7 fl (35.1-43.9); Red Blood Count 5.82 M/mm3 (4.6-6.2); White Blood Count 11.9 K/mm3 (4.4-11.0)
--- NOTE | 2019-06-12 18:00 | RAD_ITS ---
STUDY: X-RAY CHEST REASON FOR EXAM: Male, 59 years old. cough. Shortness of breath TECHNIQUE: Frontal and lateral views of the chest. COMPARISON: 01/13/2019. FINDINGS: There is hyperinflation of the lungs consistent with chronic obstructive lung disease (COPD). No infiltrates. No effusions. There is no demonstrated pleural abnormality. Normal size heart. Normal mediastinum and lisy. Normal visualized pulmonary arteries. Normal visualized aortic arch and descending thoracic aorta. Normal visualized thoracic spine. Normal visualized ribs, clavicles, and shoulders. There is no demonstrated abnormality of the visualized soft tissue structures of the upper abdomen. RAD/Chest PA and Lateral IMPRESSION: There are findings consistent with COPD. There is no evidence of acute chest disease. Electronically Signed: Mckay Cody MD at 18:13 EDT , Service support ,
[2019-06-12 18:01] LABS: Anion Gap 5 (5-15); BUN 13 mg/dL (7-18); BUN/Creat Ratio 10.2 RATIO (10-20); Calcium,Total 9.3 mg/dL (8.5-10.1); Chloride 104 mmol/L (98-107); Creatinine, Serum 1.27 mg/dL (0.70-1.30); EST Glomerular Filtration Rate 61 mL/min (>60); Est Glom Filt Rate - Afr Amer 74 mL/min (>60); Estimated Creatinine Clearance 57.83 ml/min; Glucose 117 mg/dL (74-106); Potassium 3.6 mmol/L (3.5-5.1); Sodium Level 139 mmol/L (136-145)
[2019-06-12] MEDS: MethylPREDNISolone 125 MG/2 ML Vial IV (18:09)
[2019-06-12] MEDS: 0.9% Normal Saline 1,000 ML 150 ML IV (18:10)
--- NOTE | 2019-06-12 18:50 | PCM.HP.STD ---
Problem List (1) COPD exacerbation Status: Acute (2) Chest pain Status: Acute Qualifiers: Chest pain type: chest pain on breathing Qualified Code(s): R07.1 - Chest pain on breathing (3) History of Kay's esophagus Status: Chronic (4) Near syncope Status: Acute (5) Bipolar 1 disorder Status: Chronic (6) Chest pain Status: Resolved Qualifiers: (7) Rheumatoid arthritis Status: Chronic (8) Depression Status: Chronic (9) TIFFANIE (obstructive sleep apnea) Status: Chronic (10) COPD (chronic obstructive pulmonary disease) Status: Chronic Qualifiers: (11) GERD (gastroesophageal reflux disease) Status: Chronic (12) Tobacco dependence Status: Chronic History of Present Illness Date of Admission: 06/12/19 Chief Complaint: Increased shortness of breath for 3 days The patient is a 59 year old M with history of COPD not on home oxygen follows Dr. Keller came to ER with progressive worsening of shortness of breath for 3 days along with chest tightness, cough difficulty to bring up phlegm. Sometimes it brings up clear sputum. Mainly has dry heave. He also complained of chest tightness mainly during inspiration, pleuritic in nature bilateral; not related with activity. Denies fever or chills. Denies sinus drainage or nasal drainage. Denies exposure to suspected respiratory infection. In ED, was afebrile, blood pressure is stable with mild tachycardia, 106 bpm, respiratory rate 26 and pulse ox 89% on room air [] Basic labs shows mild leukocytosis about 12,000. Chest x-ray did not show acute cardiopulmonary abnormality. Past Medical History Past Medical History (Chronic Problems): Chronic Problems (Last Updated 04/24/19 @ 09:37 by Heather Samaniego) History of Kay's esophagus (Chronic) Bipolar 1 disorder (Chronic) Rheumatoid arthritis (Chronic) Depression (Chronic) TIFFANIE (obstructive sleep apnea) (Chronic) COPD (chronic obstructive pulmonary disease) (Chronic) GERD (gastroesophageal reflux disease) (Chronic) Tobacco dependence (Chronic) Medical History: Medical History (Last Updated 04/24/19 @ 09:37 by Heather Samaniego) History of Kay's esophagus (Chronic) Z87.19 Bipolar 1 disorder (Chronic) F31.9 Rheumatoid arthritis (Chronic) M06.9 Depression (Chronic) F32.9 TIFFANIE (obstructive sleep apnea) (Chronic) G47.33 COPD (chronic obstructive pulmonary disease) (Chronic) J44.9 GERD (gastroesophageal reflux disease) (Chronic) K21.9 Tobacco dependence (Chronic) F17.200 Anxiety F41.9 Cirrhosis K74.60 History of colonic polyps Z86.010 HTN (hypertension) I10 Allergies No Known Allergies Allergy (Verified 04/24/19 09:35) Home Medications: Ambulatory Orders Medication Instructions Recorded albuterol sulfate 90 mcg/actuation 2 puff INHALATION Q4H PRN #1 device 12/05/18 aerosol inhaler bupropion HCl 150 mg tablet,12 hr 150 mg PO DAILY 12/05/18 sustained-release hydroxyzine pamoate 50 mg capsule 50 mg PO Q6H 12/05/18 omeprazole 40 mg capsule,delayed 40 mg PO DAILY 12/05/18 release quetiapine 100 mg tablet 200 mg PO ONCE HS tab 12/05/18 quetiapine 50 mg tablet 50 mg PO DAILY tab 12/05/18 Fluticasone/Umeclidin/Vilanter 1 puff IH DAILY 01/13/19 [Trelegy Ellipta 100-62.5-25] Mirtazapine [Remeron] 15 mg PO QHS 01/13/19 fluticasone fur. 100 mcg-umeclid 1 inh INHALATION DAILY #1 ea 03/13/19 62.5 mcg-vilant 25 mcg inhalat.powder amlodipine 10 mg tablet 10 mg PO DAILY 04/24/19 hydrochlorothiazide 25 mg tablet 25 mg PO DAILY 04/24/19 potassium chloride 20 mEq 20 meq PO DAILY 04/24/19 tablet,extended release(part/cryst) Surgical History: Surgical History (Last Updated 04/24/19 @ 09:34 by Heather Samaniego) History of arthroscopy of both knees Z98.890 History of colonoscopy with polypectomy Onset Date: ~2018 Z98.890, Z86.010 History of esophagogastroduodenoscopy (EGD) Z98.890 History of knee surgery (Inactive) Z98.890 Surgical History: - - Arthroscopic knee surgery. Psychiatric History: Depression Lives: Spouse/ Significant Other Smoking Status: Current every day smoker - *Family History Paternal Family History: Family History (Last Reviewed 04/24/19 @ 09:33 by Heather Samaniego) Father Diabetes Gout Cancer Heart disease Mother Hypertension Arthritis History Items: Cancer - from lung cancer, Heart Disease Maternal Family History: Family History (Last Reviewed 04/24/19 @ 09:33 by Heather Samaniego) Father Diabetes Gout Cancer Heart disease Mother Hypertension Arthritis History Items: Heart Disease, Hypertension Review of Systems Constitutional: Denies: Chills, Fever, Weight Change HEENT: Denies: Head Aches, Sinus Congestion, Sinus Drainage Cardiovascular: Reports: Chest Pain, Chest Tightness. Denies: Palpitations Respiratory: Reports: Cough, Shortness of breath at rest, Shortness of breath upon exertion, Sputum production, Wheezing Gastrointestinal: Denies: Abdominal Pain, Nausea, Vomiting Genitourinary: Denies: Dysuria, Frequency, Urgency Musculoskeletal: Denies: Joint Pain, Joint Tenderness Skin: Denies: Rash, Wounds Neurological: Denies: Numbness, Tingling, Focal weakness Psychiatric: Denies: Anxiety, Depression, Homicidal Ideations, Suicidal Ideations Hematologic/ Lymphatic: Denies: Easy Bruising, Easy Bleeding VTE Information - Inpt Only VTE Present on Admission: No VTE Mechan Device Prophylaxis: None VTE Pharm Prophylaxis ordered?: Yes Patient Problems: Active and Suspected Problems (Last Updated 04/24/19 @ 09:37 by Heather Samaniego) COPD exacerbation (Acute) Chest pain (Acute) - Physical Exam Vitals/I&O's: Vital Signs Temp Pulse Resp BP Pulse Ox 98.0 F 109 H 26 H 136/88 H 94 06/12/19 18:30 06/12/19 18:30 06/12/19 18:30 06/12/19 18:30 06/12/19 18:30 Oxygen Flow Rate (L/min) 2 Oxygen Delivery Method Nasal Cannula Weight: 200 lb Body Mass Index (BMI) 31.3 General: Alert, Oriented x3, Cooperative HEENT: Atraumatic, PERRLA, EOMI, Normocephalic Neck: Supple, No JVD, Negative Carotid Bruits Lungs: Diminished - Air entry severely diminished in all lung field, Short of Breath, Wheezes Cardiovascular: Regular Rhythm, Normal S1, Normal S2, No murmurs, Tachycardic Abdomen: Bowel Sounds Present, Soft, Non Tender, Non-Distended Extremities: No edema, Capillary Refill Less than 3 Seconds Skin: No rashes, No breakdown Musculoskeletal: No Tenderness to Palpation of Joints or Extremities, Arthritic Changes Neurological: Cranial nerves II-XII grossly intact, Deep Tendon Reflexes 2+/4 and Symmetrical, Neuro grossly intact Psych/Mental Status: Normal Affect, Appropriate Laboratory Results 06/12/19 17:35: WBC 11.9 H, RBC 5.82, Hgb 15.3, Hct 47.6, MCV 81.8, MCH 26.3 L, MCHC 32.1, RDW Std Deviation 47.7 H, RDW Coeff of Desmond 16.7 H, Plt Count 345, MPV 8.7, Immature Gran % (Auto) 0.400, Neut % (Auto) 69.8, Lymph % (Auto) 12.9 L, [place] % (Auto) 11.8 H, Eos % (Auto) 4.0, Baso % (Auto) 1.1 H, Absolute Neuts (auto) 8.3 H, Absolute Lymphs (auto) 1.54, Nucleated RBC % 0 06/12/19 17:35: Sodium 139, Potassium 3.6, Chloride 104, Carbon Dioxide 30.0, Anion Gap 5, BUN 13, Creatinine 1.27, Estim Creat Clear Calc 57.83, Est GFR (MDRD) Af Amer 74, Est GFR (MDRD) Non-Af 61, BUN/Creatinine Ratio 10.2, Glucose 117 H, Calcium 9.3, Troponin I 0.038 Current Medications Sodium Chloride () 1,000 mls @ 150 mls/hr IV .Q6H40M LACEY Last Admin: 06/12/19 18:10 Dose: 150 mls/hr Documented by: Azithromycin 500 mg/ Dextrose 255 mls @ 250 mls/hr IV X1 ONE Stop: 06/12/19 19:45 Assessment/Plan All Active Problems (Last Updated 04/24/19 @ 09:37 by Heather Samaniego) COPD exacerbation (Acute) Chest pain (Acute) Near syncope (Acute) Chest pain (Resolved) The patient is a 59 year old M with history of COPD not on home oxygen follows Dr. Keller came to ER with progressive worsening of shortness of breath for 3 days along with chest tightness, cough difficulty to bring up phlegm In ED, was afebrile, blood pressure is stable with mild tachycardia, 106 bpm, respiratory rate 26 and pulse ox 89% on room air [] Basic labs shows mild leukocytosis about 12,000. Chest x-ray did not show acute cardiopulmonary abnormality. 1. COPD exacerbation: Patient is being admitted in PCU. Oxygen therapy as needed. If further progressive worsening of shortness of breath, will need ABG and BiPAP. Start on bronchodilator, IV Solu-Medrol, chest physiotherapy, incentive spirometry and doxycycline. Patient was admitted in [facility] about 2 weeks ago for colitis and was discharged on Z-Delvin. Patient had PFT in August 2018 shows irreversible moderate large airway obstructive ventilatory defect with symmetric reduction in DC. FEV1 65% of predicted. DLCO 78% of predicted. Normal TLC at 7 L, 109% of predicted. Patient was last seen in pulmonary clinic in March 2019 and is on Trelegy Ellipta and as needed albuterol. 2. Chest tightness predominantly pleuritic in nature: First troponin is negative. EKG reviewed. Normal sinus rhythm with PVCs, LAFB at 99 bpm LAD with QTc interval 441 ms. Cycle 2 more cardiac enzymes. Patient had recent pharmacological myocardial perfusion stress test in September 2018 which was negative. Patient also had echo in March 30 reported as below ECHO 12/2018 Interpretation Summary The study was technically difficult. Left ventricular systolic function is normal. The estimated ejection fraction is 60 %. Trivial mitral valve insufficiency. Trivial tricuspid valve insufficiency. Mild focal aortic valve calcification. Unable to estimate RV systolic pressure/pulmonary artery pressure due to technically difficult study. Diastolic function is indeterminate. 3. GERD with history of Kay's esophagus: Continue PPI 4. Hypertension: Blood pressure is controlled. On amlodipine and HCTZ; continued Other comorbidities include obstructive sleep apnea, rheumatoid arthritis, bipolar 1 disorder: Home medication reconciliation done. Patient is on quetiapine, mirtazapine, bupropion, and hydroxyzine DVT prophylaxis: Lovenox 40 mg subcu daily. Living will/advanced directive: Patient does not have a living will. CODE STATUS was discussed with patient in front of her daughter. Patient does want artificial life support including intubation, tube feed, ventilator and/chest compression, DC shock, CVC and vasopressor if.. Full code. Total time spent in [id number] encounter in discussion of advanced directive 16 minutes. Laboratory Results 06/12/19 17:35: WBC 11.9 H, RBC 5.82, Hgb 15.3, Hct 47.6, MCV 81.8, MCH 26.3 L, MCHC 32.1, RDW Std Deviation 47.7 H, RDW Coeff of Desmond 16.7 H, Plt Count 345, MPV 8.7, Immature Gran % (Auto) 0.400, Neut % (Auto) 69.8, Lymph % (Auto) 12.9 L, [place] % (Auto) 11.8 H, Eos % (Auto) 4.0, Baso % (Auto) 1.1 H, Absolute Neuts (auto) 8.3 H, Absolute Lymphs (auto) 1.54, Nucleated RBC % 0 06/12/19 17:35: Sodium 139, Potassium 3.6, Chloride 104, Carbon Dioxide 30.0, Anion Gap 5, BUN 13, Creatinine 1.27, Estim Creat Clear Calc 57.83, Est GFR (MDRD) Af Amer 74, Est GFR (MDRD) Non-Af 61, BUN/Creatinine Ratio 10.2, Glucose 117 H, Calcium 9.3, Troponin I 0.038 Clinical Impression(s) from Imaging Studies Chest X-Ray 06/12/19 18:00 IMPRESSION: There are findings consistent with COPD. There is no evidence of acute chest disease. Inpatient E&M: 26813 Init Hosp L3 Procedures: 13759 Advncd Care Plan 30 Min
[2019-06-12] MEDS: Aspirin 81 MG TAB.CHEW 324 MG PO (19:32)
[2019-06-12 20:33] LABS: Magnesium 1.4 mg/dL (1.6-2.6)
--- NOTE | 2019-06-12 20:36 | EKG12_ITS ---
Test Reason : Blood Pressure : / mmHG Vent. Rate : 091 BPM Atrial Rate : 091 BPM P-R Int : 164 ms QRS Dur : 102 ms QT Int : 374 ms P-R-T Axes : 016 -28 018 degrees QTc Int : 460 ms Normal sinus rhythm Normal ECG When compared with ECG of 13-JAN-2019 04:05, No significant change was found Confirmed by LAQUITA TRUJILLO, JEWEL ([id number]), news copy editor ROSITA HEWITT ([id number]) on 06/17/2019 7:51:15 AM Referred By: Confirmed By:JEWEL COELHO MD
[2019-06-12] MEDS: 0.9% Normal Saline 1,000 ML 75 ML IV (20:45)
[2019-06-12] MEDS: Mirtazapine 15 MG Tablet PO (20:53)
[2019-06-12] MEDS: Enoxaparin 40 MG/0.4 ML Syringe SC (20:53)
[2019-06-12] MEDS: Doxycycline 100 MG CAPSULE PO (20:53)
[2019-06-12] MEDS: oxyCODONE 5 MG Tablet PO (20:58)
[2019-06-12] MEDS: Pramipexole Di-HCl 0.25 MG Tablet PO (22:40)
[2019-06-12] MEDS: QUEtiapine 100 MG Tablet 200 MG PO (22:40)
[2019-06-13] VITALS (17 sets, daily range): BP systolic 117–125; BP diastolic 68–78; PULSE 90–114; RESP 12–20; TEMP 36.4–37.3; O2SAT 93–96
[2019-06-13] MEDS: Ipratropium/Albuterol Sulfate 3 ML AMPUL.NEB INHALATION ×6 (03:15→23:34)
[2019-06-13] MEDS: oxyCODONE 5 MG Tablet PO ×2 (05:55→21:35)
[2019-06-13 05:56] LABS: Absolute Lymphocyte Count 0.42 X10^3/uL (0.83-4.51); Basophil# 0.03 X10^3/uL; Basophil% 0.3 % (0-1); Hematocrit 43.4 % (40-54); Hemoglobin 13.9 g/dL (13.0-16.5); Lymphocyte # 0.42 X10^3/ul (4.0); Lymphocyte % 4.9 % (19-41); Mean Corpuscular Volume 81.1 fL (80-94); Monocyte# 0.06 X10^3/uL; Monocyte% 0.7 % (0-10); NRBC Flagged by Analyzer 0 % (0-5); Neutrophil # 8.04 X10^3/uL (2.7-7.7); Neutrophil % 92.9 % (47-70); POSITIVE DIFFERENTIAL YES; Platelet Count 350 K/mm3 (150-450); RBC Distribution Width CV 16.2 % (11.6-14.6); RBC Distribution Width SD 47.8 fl (35.1-43.9); Red Blood Count 5.35 M/mm3 (4.6-6.2); White Blood Count 8.7 K/mm3 (4.4-11.0)
[2019-06-13 06:18] LABS: Differential Indicated SCAN CRITERIA MET
[2019-06-13 06:47] LABS: Differential Comment SCANNED; Platelet Estimate ADEQUATE (ADEQ); Reactive Lymphocyte RARE; Stomatocyte RARE
[2019-06-13 06:48] LABS: Anion Gap 11 (5-15); BUN 14 mg/dL (7-18); BUN/Creat Ratio 8.9 RATIO (10-20); Chloride 104 mmol/L (98-107); Cholesterol 287 mg/dL (200); Creatinine, Serum 1.58 mg/dL (0.70-1.30); EST Glomerular Filtration Rate 48 mL/min (>60); Est Glom Filt Rate - Afr Amer 58 mL/min (>60); Estimated Creatinine Clearance 46.48 ml/min; Glucose 208 mg/dL (74-106); High Density Lipoprotein 39 mg/dL; Potassium 3.8 mmol/L (3.5-5.1); Sodium Level 139 mmol/L (136-145); Thyroid Stim Hormone (TSH) 0.61 uIU/mL (0.358-3.74); Triglycerides 169 mg/dL; Very Low Density Lipoprotein 34 mg/dL (5-40)
[2019-06-13] MEDS: hydroCHLOROthiazide 25 MG Tablet PO (09:12)
[2019-06-13] MEDS: QUEtiapine 25 MG Tablet 50 MG PO (09:12)
[2019-06-13] MEDS: buPROPion (SR) 150 MG Tablet.SA PO (09:12)
[2019-06-13] MEDS: amLODIPine 10 MG Tablet PO (09:12)
[2019-06-13] MEDS: Doxycycline 100 MG CAPSULE PO ×2 (09:12→21:33)
[2019-06-13] MEDS: Polyethylene Glycol 3350 17 GM PACKET PO (09:12)
[2019-06-13] MEDS: Pantoprazole Sodium 40 MG Tablet PO (09:12)
[2019-06-13] MEDS: Enoxaparin 40 MG/0.4 ML Syringe SC (09:12)
--- NOTE | 2019-06-13 11:09 | PN_ITS ---
Patient Problems: Active and Suspected Problems (Last Updated 04/24/19 @ 09:37 by Heather Samaniego) COPD exacerbation (Acute) Chest pain (Acute) Reason for Visit: COPD exacerbation. Acute on chronic hypoxic respiratory failure Vitals/I&O's: Vital Signs Temp Pulse Resp BP Pulse Ox 97.6 F L 101 H 16 124/75 H 95 06/13/19 09:00 06/13/19 10:24 06/13/19 10:24 06/13/19 09:00 06/13/19 09:00 Oxygen Flow Rate (L/min) 3 Oxygen Delivery Method Nasal Cannula Weight: 196 lb 6.91 oz Body Mass Index (BMI) 30.7 Intake and Output for Last 24 Hours 06/11/19 06/12/19 06/13/19 23:59 23:59 23:59 Intake Total 1220.0 / 1220.0 1281.5 / 1281.5 Output Total 250 / 250 320 / 320 Balance 970.0 / 970.0 961.5 / 961.5 General: Alert, Oriented x3, Cooperative HEENT: Atraumatic, PERRLA, EOMI, Normocephalic Neck: Supple, No JVD, Negative Carotid Bruits Lungs: Clear to auscultation, No rhonchi, No wheeze, No rales, Diminished, Rhonchi, Short of Breath - On exertion Cardiovascular: Regular rate, Regular Rhythm, Normal S1, Normal S2, No murmurs Abdomen: Bowel Sounds Present, Soft, Non Tender, Non-Distended Extremities: Capillary Refill Less than 3 Seconds, Edema Skin: No rashes, No breakdown Musculoskeletal: No Tenderness to Palpation of Joints or Extremities, Arthritic Changes Neurological: Cranial nerves II-XII grossly intact, Deep Tendon Reflexes 2+/4 and Symmetrical, Neuro grossly intact Psych/Mental Status: Normal Affect, Appropriate Microbiology Past 72 Hours 06/12/19 20:40 Mucosa - Nasopharyngeal Respiratory Panel (PCR) - Final Rhinovirus 06/12/19 22:40 Urine, Clean Catch Streptococcus pneumoniae Antigen (M - Final 06/12/19 22:40 Urine, Clean Catch Legionella Antigen - Final Laboratory Results 06/12/19 17:35: WBC 11.9 H, RBC 5.82, Hgb 15.3, Hct 47.6, MCV 81.8, MCH 26.3 L, MCHC 32.1, RDW Std Deviation 47.7 H, RDW Coeff of Desmond 16.7 H, Plt Count 345, MPV 8.7, Immature Gran % (Auto) 0.400, Neut % (Auto) 69.8, Lymph % (Auto) 12.9 L, [place] % (Auto) 11.8 H, Eos % (Auto) 4.0, Baso % (Auto) 1.1 H, Absolute Neuts (auto) 8.3 H, Absolute Lymphs (auto) 1.54, Nucleated RBC % 0 06/12/19 17:35: Sodium 139, Potassium 3.6, Chloride 104, Carbon Dioxide 30.0, Anion Gap 5, BUN 13, Creatinine 1.27, Estim Creat Clear Calc 57.83, Est GFR (MDRD) Af Amer 74, Est GFR (MDRD) Non-Af 61, BUN/Creatinine Ratio 10.2, Glucose 117 H, Calcium 9.3, Troponin I 0.038 06/12/19 17:35: Magnesium 1.4 L 06/12/19 21:02: Troponin I 0.038 06/13/19 05:40: Sodium 139, Potassium 3.8, Chloride 104, Carbon Dioxide 24.0, Anion Gap 11, BUN 14, Creatinine 1.58 H, Estim Creat Clear Calc 46.48, Est GFR (MDRD) Af Amer 58 L, Est GFR (MDRD) Non-Af 48 L, BUN/Creatinine Ratio 8.9 L, Glucose 208 H, Calcium 9.0, Triglycerides 169, Cholesterol 287 H, LDL Cholesterol 214 H, VLDL Cholesterol 34, HDL Cholesterol 39 L, TSH 0.61 06/13/19 05:40: WBC 8.7, RBC 5.35, Hgb 13.9, Hct 43.4, MCV 81.1, MCH 26.0 L, MCHC 32.0, RDW Std Deviation 47.8 H, RDW Coeff of Desmond 16.2 H, Plt Count 350, MPV 9.0, Immature Gran % (Auto) 1.200 H, Neut % (Auto) 92.9 H, Lymph % (Auto) 4.9 L, [place] % (Auto) 0.7, Eos % (Auto) 0.0, Baso % (Auto) 0.3, Absolute Neuts (auto) 8.0 H, Absolute Lymphs (auto) 0.42 L, Nucleated RBC % 0, Differential Comment SCANNED, Reactive Lymphocytes RARE, Platelet Estimate ADEQUATE, Stomatocytes RARE Current Medications Acetaminophen (Tylenol) 650 mg PO Q6H PRN PRN PRN Reason: Pain Score 1-10/Temp > 100.7 F Albuterol Sulfate (Ventolin Aerosols) 2.5 mg INHALATION Q2H PRN PRN PRN Reason: SHORTNESS OF BREATH Albuterol/Ipratropium (Duoneb) 3 ml INHALATION Q4H.RT [facility] Last Admin: 06/13/19 10:24 Dose: 3 ml Documented by: Amlodipine Besylate (Norvasc) 10 mg PO DAILY [facility] Last Admin: 06/13/19 09:12 Dose: 10 mg Documented by: Bupropion HCl (Wellbutrin Sr (150mg Tablets)) 150 mg PO DAILY [facility] Last Admin: 06/13/19 09:12 Dose: 150 mg Documented by: Doxycycline Monohydrate (Doxycycline) 100 mg PO BID [facility] Last Admin: 06/13/19 09:12 Dose: 100 mg Documented by: Enoxaparin Sodium (Lovenox) 40 mg SC DAILY [facility] Last Admin: 06/13/19 09:12 Dose: 40 mg Documented by: Glucagon () 1 mg IM .X1 PRN PRN Reason: Hypoglycemia Hydrochlorothiazide (Hctz) 25 mg PO DAILY [facility] Last Admin: 06/13/19 09:12 Dose: 25 mg Documented by: Hydroxyzine Pamoate (Vistaril Pamoate Capsule) 50 mg PO Q6H PRN PRN PRN Reason: anxiety Dextrose (Dextrose 10%-Water) 250 mls @ 999 mls/hr IV .Q16M PRN; Protocol PRN Reason: HYPOGLYCEMIA Sodium Chloride () 250 mls @ 15 mls/hr IV .[id number] PRN PRN Reason: Saline Flush Methylprednisolone (Solu-Medrol) 40 mg IV Q8 [facility] Last Admin: 06/13/19 05:50 Dose: 40 mg Documented by: Mirtazapine (Remeron) 15 mg PO QHS [facility] Last Admin: 06/12/19 20:53 Dose: 15 mg Documented by: Morphine Sulfate () 2 mg IV Q3H PRN PRN PRN Reason: Pain Score 6-10/10 Nitroglycerin (Nitrostat) 0.4 mg SUBLINGUAL Q5M PRN PRN Reason: CARDIAC/CHEST PAIN Oxycodone HCl (Oxyir) 5 mg PO Q4H PRN PRN PRN Reason: Pain Score 4-5/10 Last Admin: 06/13/19 05:55 Dose: 5 mg Documented by: Pantoprazole Sodium (Protonix) 40 mg PO DAILY [facility] Last Admin: 06/13/19 09:12 Dose: 40 mg Documented by: Polyethylene Glycol (Miralax) 17 gm PO DAILY [facility] Last Admin: 06/13/19 09:12 Dose: 17 gm Documented by: Pramipexole Dihydrochloride (Mirapex) 0.25 mg PO QHS [facility] Last Admin: 06/12/19 22:40 Dose: 0.25 mg Documented by: Prochlorperazine Edisylate (Compazine Iv) 5 mg IV Q4H PRN PRN PRN Reason: Breakthrough Nausea/Vomiting Quetiapine Fumarate (Seroquel) 50 mg PO DAILY [facility] Last Admin: 06/13/19 09:12 Dose: 50 mg Documented by: Quetiapine Fumarate (Seroquel) 200 mg PO QHS [facility] Last Admin: 06/12/19 22:40 Dose: 200 mg Documented by: Senna/Docusate Sodium (Senokot-S, Marie-Colace) 2 tablet PO BID PRN PRN PRN Reason: Constipation Sodium Chloride () 10 - 40 ml IV UD PRN PRN Reason: SALINE FLUSH STROKE Vital Signs/Narrative: Vital Signs Temp Pulse Resp BP Pulse Ox 06/13/19 10:24 101 H 16 06/13/19 09:00 97.6 F L 104 H 18 124/75 H 95 Medical Necessity - Tobacco Use Smoking Status: Current every day smoker Assessment/Plan All Active Problems (Last Updated 04/24/19 @ 09:37 by Heather Samaniego) COPD exacerbation (Acute) Chest pain (Acute) Near syncope (Acute) Chest pain (Resolved) The patient is a 59 year old M with history of COPD not on home oxygen follows Dr. Keller came to ER with progressive worsening of shortness of breath for 3 days along with chest tightness, cough difficulty to bring up phlegm In ED, was afebrile, blood pressure is stable with mild tachycardia, 106 bpm, respiratory rate 26 and pulse ox 89% on room air [] Basic labs shows mild leukocytosis about 12,000. Chest x-ray did not show acute cardiopulmonary abnormality. 1. COPD exacerbation due to rhinovirus with chronic hypoxic respiratory failure on ambulation: Patient is being admitted in PCU. Respiratory panel positive of rhinovirus. Patient was started on BiPAP at night yesterday but he could not tolerate even 12/7 because of tightness over his mouth. Patient is on bronchodilator, IV Solu-Medrol, chest physiotherapy, incentive spirometry and doxycycline. Patient was admitted in [facility] about 2 weeks ago for colitis and was discharged on Z-Delvin. This was discussed with Dr. Keller today and he saw the patient. Pulmonary consult reviewed and appreciated. Discussed with respiratory therapist and is noncompliant to BiPAP and actually returned his machine. Patient had PFT in August 2018 shows irreversible moderate large airway obstructive ventilatory defect with symmetric reduction in DC. FEV1 65% of predicted. DLCO 78% of predicted. Normal TLC at 7 L, 109% of predicted. Patient was last seen in pulmonary clinic in March 2019 and is on Trelegy Ellipta and as needed albuterol. Patient had sleep study which showed high apnea hypopnea index of 54 events per hour. 2. Chest tightness predominantly pleuritic in nature: First troponin is negative. EKG reviewed. Normal sinus rhythm with PVCs, LAFB at 99 bpm LAD with QTc interval 441 ms. Cycle 2 more cardiac enzymes. Patient had recent pharmacological myocardial perfusion stress test in September 2018 which was negative. Acute coronary syndrome ruled out with negative troponin enzymes. ECHO 12/2018 Interpretation Summary The study was technically difficult. Left ventricular systolic function is normal. The estimated ejection fraction is 60 %. Trivial mitral valve insufficiency. Trivial tricuspid valve insufficiency. Mild focal aortic valve calcification. Unable to estimate RV systolic pressure/pulmonary artery pressure due to technically difficult study. Diastolic function is indeterminate. 3. GERD with history of Kay's esophagus: Continue PPI 4. Hypertension: Blood pressure is controlled. On amlodipine and HCTZ; continued Dyslipidemia: Lipid profile shows total cholesterol 287, LDL 214, HDL 39. Started on Lipitor 40 mg daily and will need further up titration as an outpatient as per patient toleration. Other comorbidities include obstructive sleep apnea, rheumatoid arthritis, bipolar 1 disorder: Home medication reconciliation done. Patient is on quetiapine, mirtazapine, bupropion, and hydroxyzine DVT prophylaxis: Lovenox 40 mg subcu daily. Living will/advanced directive: Patient does not have a living will. CODE STATUS was discussed with patient in front of her daughter. Patient does want artificial life support including intubation, tube feed, ventilator and/chest compression, DC shock, CVC and vasopressor if.. Full code. Total time of the visit including total time spent in counseling or coordination of care, (more than 50% of the total time, spent in obtaining medical information from nurses and other ancillary care providers), coordination with design center consultant and respiratory therapist, review of labs and imaging is 30 minutes Microbiology Past 72 Hours 06/12/19 20:40 Mucosa - Nasopharyngeal Respiratory Panel (PCR) - Final Rhinovirus 06/12/19 22:40 Urine, Clean Catch Streptococcus pneumoniae Antigen (M - Final 06/12/19 22:40 Urine, Clean Catch Legionella Antigen - Final Laboratory Results 06/12/19 17:35: Magnesium 1.4 L 06/12/19 21:02: Troponin I 0.038 06/13/19 05:40: Sodium 139, Potassium 3.8, Chloride 104, Carbon Dioxide 24.0, Anion Gap 11, BUN 14, Creatinine 1.58 H, Estim Creat Clear Calc 46.48, Est GFR (MDRD) Af Amer 58 L, Est GFR (MDRD) Non-Af 48 L, BUN/Creatinine Ratio 8.9 L, Glucose 208 H, Calcium 9.0, Triglycerides 169, Cholesterol 287 H, LDL Cholesterol 214 H, VLDL Cholesterol 34, HDL Cholesterol 39 L, TSH 0.61 06/13/19 05:40: WBC 8.7, RBC 5.35, Hgb 13.9, Hct 43.4, MCV 81.1, MCH 26.0 L, MCHC 32.0, RDW Std Deviation 47.8 H, RDW Coeff of Desmond 16.2 H, Plt Count 350, MPV 9.0, Immature Gran % (Auto) 1.200 H, Neut % (Auto) 92.9 H, Lymph % (Auto) 4.9 L , [place] % (Auto) 0.7, Eos % (Auto) 0.0, Baso % (Auto) 0.3, Absolute Neuts (auto) 8.0 H, Absolute Lymphs (auto) 0.42 L, Nucleated RBC % 0, Differential Comment SCANNED, Reactive Lymphocytes RARE, Platelet Estimate ADEQUATE, Stomatocytes RARE 06/13/19 11:41: Specimen Type ART, Sample Site R Brachial, pH 7.41, Bicarbonate Actual 25.0, POC Total CO2 26, Base Excess 0, O2 Saturation 92 L, ABG pCO2 39.5, ABG pO2 64 L, Omar Test NA, O2 Delivery Device Nasal Can, Liter Flow 2.0, Blood Gas Notified Whom HOSP MD, Blood Gas Notified Time 1145 Clinical Impression(s) from Imaging Studies Chest X-Ray 06/12/19 18:00 IMPRESSION: There are findings consistent with COPD. There is no evidence of acute chest disease. Inpatient E&M: 52309 Subs Hosp L3
[2019-06-13 11:46] LABS: Base Excess 0 mmol/L (-2 to +2); Blood Gas Specimen Type ART; O2 Delivery Device Nasal Can; PO2 64 mmHG (75-100); SITE R Brachial; SO2 92 % (95-99); Time Given 1145; Total Carbon Dioxide 26 mmol/L; pCO2 39.5 mmHg (35-45); pH 7.41 (7.35-7.45)
--- NOTE | 2019-06-13 13:05 | PCM.CONS.PUL ---
Reason for Consult Date of Consultation: 06/13/19 Reason for Consultation: COPD exacerbation History of Present Illness: The patient is a 59-year-old male, with a history as outlined below, who presented to the emergency department on June 11 with complaints of shortness of breath. The patient has a known history of COPD, TIFFANIE and lung nodule. The patient does have an extensive smoking history of upwards of 2 packs/day x 30 years. Pulmonary function studies were completed in August 2018 and revealed evidence of an irreversible moderate large airways obstructive ventilatory defect with symmetric reduction in diffusing capacity. A 6-minute walk test was also completed at that time and revealed a yinka oxygen saturation of 92% with ambulation. A split-night sleep study completed in September 2018 revealed evidence of severe obstructive sleep apnea with an overall apnea hypopnea index of 54 events per hour. It was recommended that the patient be started on bilevel therapy with a pressure support of 16/12 centimeters of water. However, over concerns for previous intolerance to Pap therapy, the patient was started on a pressure support of 10/6 centimeters of water. Unfortunately, the patient eventually became noncompliant with the use of BiPAP therapy and subsequently returned his equipment. On presentation to the emergency department, the patient was noted to be afebrile and hemodynamically stable. Laboratory evaluation revealed a mildly elevated white blood cell count. Chemistry profile was unremarkable. Troponin was negative. Plain film chest x-ray revealed no acute cardiopulmonary process. The patient was started on aerosol treatments and IV steroids. He was also given a dose of azithromycin. The patient was subsequently admitted to the progressive care unit for further management. Past Medical History Past Medical History (Chronic Problems): Chronic Problems (Last Updated 04/24/19 @ 09:37 by Heather Samaniego) History of Kay's esophagus (Chronic) Bipolar 1 disorder (Chronic) Rheumatoid arthritis (Chronic) Depression (Chronic) TIFFANIE (obstructive sleep apnea) (Chronic) COPD (chronic obstructive pulmonary disease) (Chronic) GERD (gastroesophageal reflux disease) (Chronic) Tobacco dependence (Chronic) Medical History: Medical History (Last Updated 04/24/19 @ 09:37 by Heather Samaniego) History of Kay's esophagus (Chronic) Z87.19 Bipolar 1 disorder (Chronic) F31.9 Rheumatoid arthritis (Chronic) M06.9 Depression (Chronic) F32.9 TIFFANIE (obstructive sleep apnea) (Chronic) G47.33 COPD (chronic obstructive pulmonary disease) (Chronic) J44.9 GERD (gastroesophageal reflux disease) (Chronic) K21.9 Tobacco dependence (Chronic) F17.200 Anxiety F41.9 Cirrhosis K74.60 History of colonic polyps Z86.010 HTN (hypertension) I10 Allergies No Known Allergies Allergy (Verified 04/24/19 09:35) Home Medications: Ambulatory Orders Medication Instructions Recorded albuterol sulfate 90 mcg/actuation 2 puff INHALATION Q4H PRN #1 device 12/05/18 aerosol inhaler bupropion HCl 150 mg tablet,12 hr 150 mg PO DAILY 12/05/18 sustained-release hydroxyzine pamoate 50 mg capsule 50 mg PO Q6H 12/05/18 omeprazole 40 mg capsule,delayed 40 mg PO DAILY 12/05/18 release quetiapine 50 mg tablet 50 mg PO DAILY tab 12/05/18 Fluticasone/Umeclidin/Vilanter 1 puff IH QHS 01/13/19 [Trelegy Ellipta 100-62.5-25] Mirtazapine [Remeron] 15 mg PO QHS 01/13/19 amlodipine 10 mg tablet 10 mg PO DAILY 04/24/19 hydrochlorothiazide 25 mg tablet 25 mg PO DAILY 04/24/19 Icosapent Ethyl [Vascepa] 2 gm PO BID 06/12/19 Quetiapine Fumarate [Seroquel] 200 mg PO QHS 06/12/19 Ropinirole HCl [Requip] 0.5 mg PO QHS 06/12/19 Surgical History: Surgical History (Last Updated 04/24/19 @ 09:34 by Heather Samaniego) History of arthroscopy of both knees Z98.890 History of colonoscopy with polypectomy Onset Date: ~2017 Z98.890, Z86.010 History of esophagogastroduodenoscopy (EGD) Z98.890 History of knee surgery (Inactive) Z98.890 Surgical History: - - Arthroscopic knee surgery. Psychiatric History: Depression Lives: Spouse/ Significant Other Smoking Status: Current every day smoker - *Family History Paternal Family History: Family History (Last Reviewed 04/24/19 @ 09:33 by Heather Samaniego) Father Diabetes Gout Cancer Heart disease Mother Hypertension Arthritis History Items: Cancer - from lung cancer, Heart Disease Maternal Family History: Family History (Last Reviewed 04/24/19 @ 09:33 by Heather Samaniego) Father Diabetes Gout Cancer Heart disease Mother Hypertension Arthritis History Items: Heart Disease, Hypertension Review of Systems Constitutional: Denies: Chills, Fever Eyes: Denies: Blurred vision, Double vision HEENT: Denies: Head Aches, Sinus Congestion, Sinus Drainage Cardiovascular: Denies: Chest Pain, Palpitations Respiratory: Reports: Cough, Shortness of Breath, Wheezing Gastrointestinal: Denies: Abdominal Pain, Nausea, Vomiting Genitourinary: Denies: Dysuria Musculoskeletal: Denies: Joint Pain, Joint Tenderness Skin: Denies: Rash, Wounds Neurological: Denies: Numbness, Tingling, Focal weakness Psychiatric: Denies: Anxiety, Depression, Homicidal Ideations, Suicidal Ideations Hematologic/ Lymphatic: Denies: Easy Bruising, Easy Bleeding Patient Problems: Active and Suspected Problems (Last Updated 04/24/19 @ 09:37 by Heather Samaniego) COPD exacerbation (Acute) Chest pain (Acute) Objective: The patient's most recent lab work, culture data and imaging studies have all been personally reviewed. Respiratory viral panel was positive for rhinovirus. - Physical Exam Vitals/I&O's: Vital Signs Temp Pulse Resp BP Pulse Ox 97.6 F L 101 H 16 124/75 H 95 06/13/19 09:00 06/13/19 10:24 06/13/19 10:24 06/13/19 09:00 06/13/19 09:00 Oxygen Flow Rate (L/min) 3 Oxygen Delivery Method Nasal Cannula Weight: 196 lb 6.91 oz Body Mass Index (BMI) 30.7 Intake and Output for Last 24 Hours 06/11/19 06/12/19 06/13/19 23:59 23:59 23:59 Intake Total 1220.0 / 1220.0 1761.5 / 1761.5 Output Total 250 / 250 320 / 320 Balance 970.0 / 970.0 1441.5 / 1441.5 General: Alert, Cooperative, No apparent distress HEENT: Atraumatic, PERRLA, Normocephalic Oral: No Gingival or Mucosal Lesions/ Ulcerations Neck: Supple, No Nodes, Trachea Midline Lungs: Diminished, Wheezes Cardiovascular: Regular rate, Regular Rhythm, Normal S1, Normal S2, No murmurs Abdomen: Bowel Sounds Present, Soft, Non Tender Extremities: No clubbing, No cyanosis, No edema Skin: No breakdown Musculoskeletal: No Tenderness to Palpation of Joints or Extremities, No Muscle Wasting Lymphatic: No Cervical, Supraclavicular, or Inguinal Adenopathy Neurological: Cranial nerves II-XII grossly intact, Neuro grossly intact Psych/Mental Status: Alert and oriented to time, place, person, mood and affect Labs (Last 48 Hours) 06/12/19 06/12/19 06/12/19 17:35 17:35 17:35 WBC 11.9 H RBC 5.82 Hgb 15.3 Hct 47.6 MCV 81.8 MCH 26.3 L MCHC 32.1 RDW Std Deviation 47.7 H RDW Coeff of Desmond 16.7 H Plt Count 345 MPV 8.7 Immature Gran % (Auto) 0.400 Neut % (Auto) 69.8 Lymph % (Auto) 12.9 L [place] % (Auto) 11.8 H Eos % (Auto) 4.0 Baso % (Auto) 1.1 H Absolute Neuts (auto) 8.3 H Absolute Lymphs (auto) 1.54 Nucleated RBC % 0 Differential Comment Reactive Lymphocytes Platelet Estimate Stomatocytes Specimen Type Sample Site pH Bicarbonate Actual POC Total CO2 Base Excess O2 Saturation ABG pCO2 ABG pO2 Omar Test O2 Delivery Device Liter Flow Blood Gas Notified Whom Blood Gas Notified Time Sodium 139 Potassium 3.6 Chloride 104 Carbon Dioxide 30.0 Anion Gap 5 BUN 13 Creatinine 1.27 Estim Creat Clear Calc 57.83 Est GFR (MDRD) Af Amer 74 Est GFR (MDRD) Non-Af 61 BUN/Creatinine Ratio 10.2 Glucose 117 H Calcium 9.3 Magnesium 1.4 L Troponin I 0.038 Triglycerides Cholesterol LDL Cholesterol VLDL Cholesterol HDL Cholesterol TSH 06/12/19 06/13/19 06/13/19 21:02 05:40 05:40 WBC 8.7 RBC 5.35 Hgb 13.9 Hct 43.4 MCV 81.1 MCH 26.0 L MCHC 32.0 RDW Std Deviation 47.8 H RDW Coeff of Desmond 16.2 H Plt Count 350 MPV 9.0 Immature Gran % (Auto) 1.200 H Neut % (Auto) 92.9 H Lymph % (Auto) 4.9 L [place] % (Auto) 0.7 Eos % (Auto) 0.0 Baso % (Auto) 0.3 Absolute Neuts (auto) 8.0 H Absolute Lymphs (auto) 0.42 L Nucleated RBC % 0 Differential Comment SCANNED Reactive Lymphocytes RARE Platelet Estimate ADEQUATE Stomatocytes RARE Specimen Type Sample Site pH Bicarbonate Actual POC Total CO2 Base Excess O2 Saturation ABG pCO2 ABG pO2 Omar Test O2 Delivery Device Liter Flow Blood Gas Notified Whom Blood Gas Notified Time Sodium 139 Potassium 3.8 Chloride 104 Carbon Dioxide 24.0 Anion Gap 11 BUN 14 Creatinine 1.58 H Estim Creat Clear Calc 46.48 Est GFR (MDRD) Af Amer 58 L Est GFR (MDRD) Non-Af 48 L BUN/Creatinine Ratio 8.9 L Glucose 208 H Calcium 9.0 Magnesium Troponin I 0.038 Triglycerides 169 Cholesterol 287 H LDL Cholesterol 214 H VLDL Cholesterol 34 HDL Cholesterol 39 L TSH 0.61 06/13/19 11:41 WBC RBC Hgb Hct MCV MCH MCHC RDW Std Deviation RDW Coeff of Desmond Plt Count MPV Immature Gran % (Auto) Neut % (Auto) Lymph % (Auto) [place] % (Auto) Eos % (Auto) Baso % (Auto) Absolute Neuts (auto) Absolute Lymphs (auto) Nucleated RBC % Differential Comment Reactive Lymphocytes Platelet Estimate Stomatocytes Specimen Type ART Sample Site R Brachial pH 7.41 Bicarbonate Actual 25.0 POC Total CO2 26 Base Excess 0 O2 Saturation 92 L ABG pCO2 39.5 ABG pO2 64 L Omar Test NA O2 Delivery Device Nasal Can Liter Flow 2.0 Blood Gas Notified Whom [facility] Blood Gas Notified Time 1145 Sodium Potassium Chloride Carbon Dioxide Anion Gap BUN Creatinine Estim Creat Clear Calc Est GFR (MDRD) Af Amer Est GFR (MDRD) Non-Af BUN/Creatinine Ratio Glucose Calcium Magnesium Troponin I Triglycerides Cholesterol LDL Cholesterol VLDL Cholesterol HDL Cholesterol TSH Microbiology 06/12/19 20:40 Mucosa - Nasopharyngeal Respiratory Panel (PCR) - Final Rhinovirus 06/12/19 22:40 Urine, Clean Catch Streptococcus pneumoniae Antigen (M - Final 06/12/19 22:40 Urine, Clean Catch Legionella Antigen - Final Clinical Impression(s) from Imaging Studies Chest X-Ray 06/12/19 18:00 IMPRESSION: There are findings consistent with COPD. There is no evidence of acute chest disease. Electronically Signed: Mckay Cody MD at 18:13 EDT , Service support , Current Medications Acetaminophen (Tylenol) 650 mg PO Q6H PRN PRN PRN Reason: Pain Score 1-10/Temp > 100.7 F Albuterol Sulfate (Ventolin Aerosols) 2.5 mg INHALATION Q2H PRN PRN PRN Reason: SHORTNESS OF BREATH Albuterol/Ipratropium (Duoneb) 3 ml INHALATION Q4H.RT [facility] Last Admin: 06/13/19 10:24 Dose: 3 ml Documented by: Amlodipine Besylate (Norvasc) 10 mg PO DAILY [facility] Last Admin: 06/13/19 09:12 Dose: 10 mg Documented by: Bupropion HCl (Wellbutrin Sr (150mg Tablets)) 150 mg PO DAILY [facility] Last Admin: 06/13/19 09:12 Dose: 150 mg Documented by: Doxycycline Monohydrate (Doxycycline) 100 mg PO BID [facility] Last Admin: 06/13/19 09:12 Dose: 100 mg Documented by: Enoxaparin Sodium (Lovenox) 40 mg SC DAILY [facility] Last Admin: 06/13/19 09:12 Dose: 40 mg Documented by: Glucagon () 1 mg IM .X1 PRN PRN Reason: Hypoglycemia Hydrochlorothiazide (Hctz) 25 mg PO DAILY [facility] Last Admin: 06/13/19 09:12 Dose: 25 mg Documented by: Hydroxyzine Pamoate (Vistaril Pamoate Capsule) 50 mg PO Q6H PRN PRN PRN Reason: anxiety Dextrose (Dextrose 10%-Water) 250 mls @ 999 mls/hr IV .Q16M PRN; Protocol PRN Reason: HYPOGLYCEMIA Sodium Chloride () 250 mls @ 15 mls/hr IV .[id number] PRN PRN Reason: Saline Flush Methylprednisolone (Solu-Medrol) 40 mg IV Q8 [facility] Last Admin: 06/13/19 05:50 Dose: 40 mg Documented by: Mirtazapine (Remeron) 15 mg PO QHS [facility] Last Admin: 06/12/19 20:53 Dose: 15 mg Documented by: Morphine Sulfate () 2 mg IV Q3H PRN PRN PRN Reason: Pain Score 6-10/10 Nitroglycerin (Nitrostat) 0.4 mg SUBLINGUAL Q5M PRN PRN Reason: CARDIAC/CHEST PAIN Oxycodone HCl (Oxyir) 5 mg PO Q4H PRN PRN PRN Reason: Pain Score 4-5/10 Last Admin: 06/13/19 05:55 Dose: 5 mg Documented by: Pantoprazole Sodium (Protonix) 40 mg PO DAILY [facility] Last Admin: 06/13/19 09:12 Dose: 40 mg Documented by: Polyethylene Glycol (Miralax) 17 gm PO DAILY [facility] Last Admin: 06/13/19 09:12 Dose: 17 gm Documented by: Pramipexole Dihydrochloride (Mirapex) 0.25 mg PO QHS [facility] Last Admin: 06/12/19 22:40 Dose: 0.25 mg Documented by: Prochlorperazine Edisylate (Compazine Iv) 5 mg IV Q4H PRN PRN PRN Reason: Breakthrough Nausea/Vomiting Quetiapine Fumarate (Seroquel) 50 mg PO DAILY [facility] Last Admin: 06/13/19 09:12 Dose: 50 mg Documented by: Quetiapine Fumarate (Seroquel) 200 mg PO QHS [facility] Last Admin: 06/12/19 22:40 Dose: 200 mg Documented by: Senna/Docusate Sodium (Senokot-S, Marie-Colace) 2 tablet PO BID PRN PRN PRN Reason: Constipation Sodium Chloride () 10 - 40 ml IV UD PRN PRN Reason: SALINE FLUSH Assessment/Plan All Active Problems (Last Updated 04/24/19 @ 09:37 by Heather Samaniego) COPD exacerbation (Acute) Chest pain (Acute) Near syncope (Acute) Chest pain (Resolved) RECOMMENDATIONS: 1. Continue current supportive measures with scheduled bronchodilators and steroids. 2. Wean supplemental oxygen to maintain saturations at or above 90%. 3. Encourage incentive spirometer use and mobilize patient as tolerated. IMPRESSIONS: 1. COPD with exacerbation secondary to rhinovirus URI Continue current supportive measures with scheduled bronchodilators and IV steroids for now. Wean supplemental oxygen to maintain saturations at or above 90%. Encourage incentive spirometer use and mobilize patient as tolerated. Recommend performing a walking oximetry study prior to consideration for discharge home. The patient will require close interval follow-up in the pulmonary medicine clinic within 2 weeks of discharge from the hospital. 2. Obstructive sleep apnea The patient has a history of noncompliance with the use of nocturnal Pap therapy, despite recommendations to the contrary. 3. Nicotine dependence/history of lung nodule/GERD/hypertension Complicates care, management, recovery and prognosis. Continue home medications as indicated. This note was generated with [employer] dictation software. It may contain incorrect words, spelling, and punctuation that were not noted in checking the note before signing. Inpatient E&M: 81100 Init Hosp L3
--- NOTE | 2019-06-13 13:45 | CASEMGMT ---
RN RL VIDEO EDITOR CM to room to meet with patient for initial transition planning/care coordination assessment. RN RL introduced self and role at [facility]. Pt voices understanding and consents to assessment at this time. Pt resting in bed in no distress at this time. Pt is A/O at this time and answers all questions appropriately. Care providers, pharmacy, and demographics verified/updated at this time. PCP: Dr Sarah Beth Weir Specialists: Dr Keller--pulmonology, Dr Elana Grey Preferred Pharmacy: [facility] Insurance: [facility] Prescription Benefit: Yes Pt states he was homeless up until about 1 1/2 yrs ago and trying to get back on my feet. States he has limited income and is interested in resources re: Medicaid, food assistance, etc. ELISHA, Conchita, made aware. Living Will/HPOA: States does not have LW or HCPOA . Interested in more information and is interested in talking w/SW. AD info packet provided, as well as [employer] Card. Pt made aware, if SW is unable to meet with him for AD completion prior to being discharged, that he can meet w/SW as an out-pt. Pt voices understanding. ELISHA Arango, made aware. LNOK: , Sarai Wright Living Arrangements: Lives w/his in 2-story home w/basement. States is having some difficulty with the stairs at times. States they are looking into having some renovations done. Pt states he is independent w/ADL's and he and his share home mgmt tasks. Transportation: Pt states drives self and states no transportation concerns at this time. also drives DME: States has the following DME: crutches, rails/grab bars, hand held shower, and nebulizer. Pt may qualify for home O2 @ discharge. Provided with DME list and made aware [employer] and [employer] both in network with [facility]. Preference is [employer]. States had a BIPAP through [employer] but returned it to them because if difficulties w/insurance/billing and was unable to afford to pay the monthly charges. Pt states he used to have oxygen through another DME company when he had [facility] insurance but that he is supposed to be returning the concentrator to them, so will need new concentrator through [employer] and portability if he does need O2 at discharge. Pt states he also has/does not use: shower chair. Pt states no need for further DME at this time. HHC/SNF: No history of SNF. Has used HHC in the past a long time ago. Denies need for HHC or OP therapy @ discharge. Pt wishes to return home and states has no concerns with going home at time of discharge. CM to follow for home oxygen needs and any further discharge planning/needs. Pt voices no further concerns/needs at this time. Advised pt to ask for CM if any further questions/concerns/needs arise. Voices understanding. PLAN: Home Will need home oxygen/ambulation testing completed prior to discharge. [employer] is preference DME company. ELISHA c/s for limited income and AD. Natacha LUNAN RN CM
[2019-06-13] MEDS: 0.9% Saline Lock 10 ML Syringe IV ×3 (13:55→21:45)
--- NOTE | 2019-06-13 14:14 | CASEMGMT ---
Per RN patient would like financial resources. SW met with patient and inquired what sort of resources he would like. He said the case picker mentioned healthcare POA and Healthcare LW. SW obtained documents and asked patient if he had questions and he did not. He wanted SW to leave documents with him. He denied need for any other resources. Conchita HILL MSW
[2019-06-13] MEDS: Acetaminophen 325 MG Tablet 650 MG PO (15:16)
[2019-06-13] MEDS: Atorvastatin Calcium 40 MG Tablet PO (21:33)
[2019-06-13] MEDS: Pramipexole Di-HCl 0.25 MG Tablet PO (21:33)
[2019-06-13] MEDS: QUEtiapine 100 MG Tablet 200 MG PO (21:34)
[2019-06-13] MEDS: Mirtazapine 15 MG Tablet PO (21:34)
[2019-06-13] MEDS: proCHLORPERazine 10 MG/2 ML Vial 5 MG IV (21:41)
[2019-06-13] MEDS: Pantoprazole Sodium 20 MG Tablet PO (22:20)
[2019-06-13] MEDS: Mag Hydrox/Al Hydrox/Simeth 30 ML UDC 15 ML PO (22:20)
[2019-06-14] VITALS (10 sets, daily range): BP systolic 115–132; BP diastolic 73–81; PULSE 81–103; RESP 16–20; TEMP 36.2–36.9; O2SAT 87–97
[2019-06-14] MEDS: 0.9% Saline Lock 10 ML Syringe IV (05:58)
[2019-06-14] MEDS: Ipratropium/Albuterol Sulfate 3 ML AMPUL.NEB INHALATION ×3 (07:28→18:53)
--- NOTE | 2019-06-14 08:32 | PCM.PN.PUL ---
Subjective: The patient was seen and examined at the bedside this morning. Events from the last 24 hours have been reviewed. The patient is currently afebrile, hemodynamically stable and maintaining appropriate oxygen saturations on 2 L/min via nasal cannula. The patient does report some improvement in his overall breathing quality. He does continue to cough. Objective: The patient's most recent lab work, culture data and imaging studies have all been personally reviewed. Respiratory viral panel was positive for rhinovirus. - Physical Exam Vitals/I&O's: Vital Signs Temp Pulse Resp BP Pulse Ox 97.7 F L 84 18 115/73 97 06/14/19 03:25 06/14/19 07:00 06/14/19 03:25 06/14/19 03:25 06/14/19 03:26 Oxygen Flow Rate (L/min) 2 Oxygen Delivery Method Nasal Cannula Weight: 196 lb 6.91 oz Body Mass Index (BMI) 30.7 Intake and Output for Last 24 Hours 06/12/19 06/13/19 06/14/19 23:59 23:59 23:59 Intake Total 1220.0 / 1220.0 2481.5 / 2481.5 120 / 120 Output Total 250 / 250 320 / 320 Balance 970.0 / 970.0 2161.5 / 2161.5 120 / 120 General: Alert, Oriented x3, Cooperative, No apparent distress HEENT: Atraumatic, PERRLA, Normocephalic Oral: No Gingival or Mucosal Lesions/ Ulcerations Neck: Supple, No Nodes, Trachea Midline Lungs: Diminished, - - Mild end expiratory wheezes, although, improved from yesterday Cardiovascular: Regular rate, Regular Rhythm, Normal S1, Normal S2, No murmurs Abdomen: Bowel Sounds Present, Soft, Non Tender, Obese Extremities: No clubbing, No cyanosis, No edema Skin: No breakdown Musculoskeletal: No Tenderness to Palpation of Joints or Extremities, No Muscle Wasting Lymphatic: No Cervical, Supraclavicular, or Inguinal Adenopathy Neurological: Cranial nerves II-XII grossly intact, Neuro grossly intact Psych/Mental Status: Normal Affect, Appropriate Labs (Last 48 Hours) 06/12/19 06/12/19 06/12/19 17:35 17:35 17:35 WBC 11.9 H RBC 5.82 Hgb 15.3 Hct 47.6 MCV 81.8 MCH 26.3 L MCHC 32.1 RDW Std Deviation 47.7 H RDW Coeff of Desmond 16.7 H Plt Count 345 MPV 8.7 Immature Gran % (Auto) 0.400 Neut % (Auto) 69.8 Lymph % (Auto) 12.9 L Irion % (Auto) 11.8 H Eos % (Auto) 4.0 Baso % (Auto) 1.1 H Absolute Neuts (auto) 8.3 H Absolute Lymphs (auto) 1.54 Nucleated RBC % 0 Differential Comment Reactive Lymphocytes Platelet Estimate Stomatocytes Specimen Type Sample Site pH Bicarbonate Actual POC Total CO2 Base Excess O2 Saturation ABG pCO2 ABG pO2 Omar Test O2 Delivery Device Liter Flow Blood Gas Notified Whom Blood Gas Notified Time Sodium 139 Potassium 3.6 Chloride 104 Carbon Dioxide 30.0 Anion Gap 5 BUN 13 Creatinine 1.27 Estim Creat Clear Calc 57.83 Est GFR (MDRD) Af Amer 74 Est GFR (MDRD) Non-Af 61 BUN/Creatinine Ratio 10.2 Glucose 117 H Calcium 9.3 Magnesium 1.4 L Troponin I 0.038 Triglycerides Cholesterol LDL Cholesterol VLDL Cholesterol HDL Cholesterol TSH 06/12/19 06/13/19 06/13/19 21:02 05:40 05:40 WBC 8.7 RBC 5.35 Hgb 13.9 Hct 43.4 MCV 81.1 MCH 26.0 L MCHC 32.0 RDW Std Deviation 47.8 H RDW Coeff of Desmond 16.2 H Plt Count 350 MPV 9.0 Immature Gran % (Auto) 1.200 H Neut % (Auto) 92.9 H Lymph % (Auto) 4.9 L Irion % (Auto) 0.7 Eos % (Auto) 0.0 Baso % (Auto) 0.3 Absolute Neuts (auto) 8.0 H Absolute Lymphs (auto) 0.42 L Nucleated RBC % 0 Differential Comment SCANNED Reactive Lymphocytes RARE Platelet Estimate ADEQUATE Stomatocytes RARE Specimen Type Sample Site pH Bicarbonate Actual POC Total CO2 Base Excess O2 Saturation ABG pCO2 ABG pO2 Omar Test O2 Delivery Device Liter Flow Blood Gas Notified Whom Blood Gas Notified Time Sodium 139 Potassium 3.8 Chloride 104 Carbon Dioxide 24.0 Anion Gap 11 BUN 14 Creatinine 1.58 H Estim Creat Clear Calc 46.48 Est GFR (MDRD) Af Amer 58 L Est GFR (MDRD) Non-Af 48 L BUN/Creatinine Ratio 8.9 L Glucose 208 H Calcium 9.0 Magnesium Troponin I 0.038 Triglycerides 169 Cholesterol 287 H LDL Cholesterol 214 H VLDL Cholesterol 34 HDL Cholesterol 39 L TSH 0.61 06/13/19 11:41 WBC RBC Hgb Hct MCV MCH MCHC RDW Std Deviation RDW Coeff of Desmond Plt Count MPV Immature Gran % (Auto) Neut % (Auto) Lymph % (Auto) Irion % (Auto) Eos % (Auto) Baso % (Auto) Absolute Neuts (auto) Absolute Lymphs (auto) Nucleated RBC % Differential Comment Reactive Lymphocytes Platelet Estimate Stomatocytes Specimen Type ART Sample Site R Brachial pH 7.41 Bicarbonate Actual 25.0 POC Total CO2 26 Base Excess 0 O2 Saturation 92 L ABG pCO2 39.5 ABG pO2 64 L Omar Test NA O2 Delivery Device Nasal Can Liter Flow 2.0 Blood Gas Notified Whom HOSP Blood Gas Notified Time 1145 Sodium Potassium Chloride Carbon Dioxide Anion Gap BUN Creatinine Estim Creat Clear Calc Est GFR (MDRD) Af Amer Est GFR (MDRD) Non-Af BUN/Creatinine Ratio Glucose Calcium Magnesium Troponin I Triglycerides Cholesterol LDL Cholesterol VLDL Cholesterol HDL Cholesterol TSH Microbiology 06/12/19 20:40 Mucosa - Nasopharyngeal Respiratory Panel (PCR) - Final Rhinovirus 06/12/19 22:40 Urine, Clean Catch Streptococcus pneumoniae Antigen (M - Final 06/12/19 22:40 Urine, Clean Catch Legionella Antigen - Final Clinical Impression(s) from Imaging Studies Chest X-Ray 06/12/19 18:00 IMPRESSION: There are findings consistent with COPD. There is no evidence of acute chest disease. Electronically Signed: Mckay Cody MD at 18:13 EDT , Service support , Current Medications Acetaminophen (Tylenol) 650 mg PO Q6H PRN PRN PRN Reason: Pain Score 1-10/Temp > 100.7 F Last Admin: 06/13/19 15:16 Dose: 650 mg Documented by: Al Hydroxide/Mg Hydroxide (Mylanta Ii) 15 ml PO Q4H PRN PRN PRN Reason: DYSPEPSIA Last Admin: 06/13/19 22:20 Dose: 15 ml Documented by: Albuterol Sulfate (Ventolin Aerosols) 2.5 mg INHALATION Q2H PRN PRN PRN Reason: SHORTNESS OF BREATH Albuterol/Ipratropium (Duoneb) 3 ml INHALATION Q4H.RT [facility] Last Admin: 06/14/19 07:28 Dose: 3 ml Documented by: Amlodipine Besylate (Norvasc) 10 mg PO DAILY [facility] Last Admin: 06/13/19 09:12 Dose: 10 mg Documented by: Atorvastatin Calcium (Lipitor) 40 mg PO QHS [facility] Last Admin: 06/13/19 21:33 Dose: 40 mg Documented by: Bupropion HCl (Wellbutrin Sr (150mg Tablets)) 150 mg PO DAILY [facility] Last Admin: 06/13/19 09:12 Dose: 150 mg Documented by: Doxycycline Monohydrate (Doxycycline) 100 mg PO BID [facility] Last Admin: 06/13/19 21:33 Dose: 100 mg Documented by: Enoxaparin Sodium (Lovenox) 40 mg SC DAILY [facility] Last Admin: 06/13/19 09:12 Dose: 40 mg Documented by: Glucagon () 1 mg IM .X1 PRN PRN Reason: Hypoglycemia Hydrochlorothiazide (Hctz) 25 mg PO DAILY [facility] Last Admin: 06/13/19 09:12 Dose: 25 mg Documented by: Hydroxyzine Pamoate (Vistaril Pamoate Capsule) 50 mg PO Q6H PRN PRN PRN Reason: anxiety Dextrose (Dextrose 10%-Water) 250 mls @ 999 mls/hr IV .Q16M PRN; Protocol PRN Reason: HYPOGLYCEMIA Sodium Chloride () 250 mls @ 15 mls/hr IV .W20L10H PRN PRN Reason: Saline Flush Methylprednisolone (Solu-Medrol) 40 mg IV Q8 [facility] Last Admin: 06/14/19 05:58 Dose: 40 mg Documented by: Mirtazapine (Remeron) 15 mg PO QHS [facility] Last Admin: 06/13/19 21:34 Dose: 15 mg Documented by: Morphine Sulfate () 2 mg IV Q3H PRN PRN PRN Reason: Pain Score 6-10/10 Nitroglycerin (Nitrostat) 0.4 mg SUBLINGUAL Q5M PRN PRN Reason: CARDIAC/CHEST PAIN Oxycodone HCl (Oxyir) 5 mg PO Q4H PRN PRN PRN Reason: Pain Score 4-5/10 Last Admin: 06/13/19 21:35 Dose: 5 mg Documented by: Pantoprazole Sodium (Protonix) 20 mg PO BID [facility] Last Admin: 06/13/19 22:20 Dose: 20 mg Documented by: Polyethylene Glycol (Miralax) 17 gm PO DAILY [facility] Last Admin: 06/13/19 09:12 Dose: 17 gm Documented by: Pramipexole Dihydrochloride (Mirapex) 0.25 mg PO QHS [facility] Last Admin: 06/13/19 21:33 Dose: 0.25 mg Documented by: Prochlorperazine Edisylate (Compazine Iv) 5 mg IV Q4H PRN PRN PRN Reason: Breakthrough Nausea/Vomiting Last Admin: 06/13/19 21:41 Dose: 5 mg Documented by: Quetiapine Fumarate (Seroquel) 50 mg PO DAILY [facility] Last Admin: 06/13/19 09:12 Dose: 50 mg Documented by: Quetiapine Fumarate (Seroquel) 200 mg PO QHS [facility] Last Admin: 06/13/19 21:34 Dose: 200 mg Documented by: Senna/Docusate Sodium (Senokot-S, Marie-Colace) 2 tablet PO BID PRN PRN PRN Reason: Constipation Sodium Chloride () 10 - 40 ml IV UD PRN PRN Reason: SALINE FLUSH Last Admin: 06/14/19 05:58 Dose: 10 ml Documented by: Medical Necessity - Tobacco Use Smoking Status: Current every day smoker Assessment/Plan All Active Problems (Last Updated 04/24/19 @ 09:37 by Heather Samaniego) COPD exacerbation (Acute) Chest pain (Acute) Near syncope (Acute) Chest pain (Resolved) RECOMMENDATIONS: 1. Continue current supportive measures with scheduled bronchodilators and steroids. 2. Wean supplemental oxygen to maintain saturations at or above 90%. 3. Encourage incentive spirometer use and mobilize patient as tolerated. 4. Perform walking oximetry study today. 5. Patient can likely be discharged home with plans to complete a prednisone taper and follow-up in the pulmonary medicine clinic within 2 weeks. IMPRESSIONS: 1. COPD with exacerbation secondary to rhinovirus URI Continue current supportive measures with scheduled bronchodilators and IV steroids for now. Wean supplemental oxygen to maintain saturations at or above 90%. Encourage incentive spirometer use and mobilize patient as tolerated. Recommend performing a walking oximetry study prior to consideration for discharge home. The patient will require close interval follow-up in the pulmonary medicine clinic within 2 weeks of discharge from the hospital. 2. Obstructive sleep apnea The patient has a history of noncompliance with the use of nocturnal Pap therapy, despite recommendations to the contrary. 3. Nicotine dependence/history of lung nodule/GERD/hypertension Complicates care, management, recovery and prognosis. Continue home medications as indicated. This note was generated with [email or web address] dictation software. It may contain incorrect words, spelling, and punctuation that were not noted in checking the note before signing. Inpatient E&M: 74072 Subs Hosp L2
[2019-06-14] MEDS: Enoxaparin 40 MG/0.4 ML Syringe SC (09:35)
[2019-06-14] MEDS: QUEtiapine 25 MG Tablet 50 MG PO (09:35)
[2019-06-14] MEDS: buPROPion (SR) 150 MG Tablet.SA PO (09:35)
[2019-06-14] MEDS: Pantoprazole Sodium 20 MG Tablet PO (09:36)
[2019-06-14] MEDS: Doxycycline 100 MG CAPSULE PO (09:36)
[2019-06-14] MEDS: amLODIPine 10 MG Tablet PO (09:36)
[2019-06-14] MEDS: hydroCHLOROthiazide 25 MG Tablet PO (09:36)
[2019-06-14] MEDS: Polyethylene Glycol 3350 17 GM PACKET PO (09:36)
--- NOTE | 2019-06-14 10:54 | DS.PCM_ITS ---
Discharge Date and Diagnosis - Problem List Patient Problems: Active and Suspected Problems (Last Updated 04/24/19 @ 09:37 by Heather Samaniego) COPD exacerbation (Acute) Chest pain (Acute) Date of Admission: 06/12/19 Date of Discharge: 06/14/19 - Primary Discharge Diagnosis Active and Suspected Problems (Last Updated 04/24/19 @ 09:37 by Heather Samaniego) COPD exacerbation (Acute) Chest pain (Acute) - Secondary Discharge Diagnosis Chronic Problems (Last Updated 04/24/19 @ 09:37 by Heather Samaniego) History of Kay's esophagus (Chronic) Bipolar 1 disorder (Chronic) Rheumatoid arthritis (Chronic) Depression (Chronic) TIFFANIE (obstructive sleep apnea) (Chronic) COPD (chronic obstructive pulmonary disease) (Chronic) GERD (gastroesophageal reflux disease) (Chronic) Tobacco dependence (Chronic) Hospital Course and Treatment Operations: None Summary of Care Provided: [] The patient is a 59 year old M with history of COPD not on home oxygen follows Dr. Keller came to ER with progressive worsening of shortness of breath for 3 days along with chest tightness, cough difficulty to bring up phlegm, chronic hypoxic respiratory failure consistent with COPD exacerbation Chest x-ray did not show acute cardiopulmonary abnormality. 1. COPD exacerbation due to rhinovirus with chronic hypoxic respiratory failure on ambulation: Patient is being admitted in PCU. Respiratory panel positive of rhinovirus. Patient is on bronchodilator, IV Solu-Medrol, chest physiotherapy, incentive spirometry and doxycycline. ABG 7.41/30 964 on 2 L of oxygen nasal cannula. Patient was started on BiPAP but he could not tolerate it. Pulmonary consult reviewed and appreciated. Discharge home oxygen need was evaluated. Pulse ox 87% at rest on room air, 94% on 2 L oxygen ambulation. Patient discharged on oxygen. Patient had PFT in August 2018 shows irreversible moderate large airway obstructive ventilatory defect with symmetric reduction in DC. FEV1 65% of predicted. DLCO 78% of predicted. Normal TLC at 7 L, 109% of predicted. Patient was last seen in pulmonary clinic in March 2019 and is on Trelegy Ellipta and as needed albuterol. Patient had sleep study which showed high apnea hypopnea index of 54 events per hour. 2. Chest tightness predominantly pleuritic in nature: First troponin is negative. EKG reviewed. Normal sinus rhythm with PVCs, LAFB at 99 bpm LAD with QTc interval 441 ms. Cycle 2 more cardiac enzymes. Patient had recent pharmacological myocardial perfusion stress test in September 2018 which was negative. Acute coronary syndrome ruled out with negative troponin enzymes. ECHO 12/2018 Interpretation Summary The study was technically difficult. Left ventricular systolic function is normal. The estimated ejection fraction is 60 %. Trivial mitral valve insufficiency. Trivial tricuspid valve insufficiency. Mild focal aortic valve calcification. Unable to estimate RV systolic pressure/pulmonary artery pressure due to technically difficult study. Diastolic function is indeterminate. 3. GERD with history of Kay's esophagus: Continue PPI 4. Hypertension: Blood pressure is controlled. On amlodipine and HCTZ; continued Dyslipidemia: Lipid profile shows total cholesterol 287, LDL 214, HDL 39. Started on Lipitor 40 mg daily and will need further up titration as an outpatient as per patient toleration. Other comorbidities include obstructive sleep apnea, rheumatoid arthritis, bipolar 1 disorder: Home medication reconciliation done. Patient is on quetia pine, mirtazapine, bupropion, and hydroxyzine DVT prophylaxis: Lovenox 40 mg subcu daily. Living will/advanced directive: Full code. Discharge medication reconciliation done. Discharge follow-up instructions completed. Discharge process discussed with the patient and all questions were answered to patient's satisfaction. Prescription for doxycycline, atorvastatin and prednisone given. Total time spent, exact 35 minutes on discharge meds reconciliation, examination, coordination of care with nurses and ancillary staff, review of imaging and blood test and discussion with the patient on follow-up instructions Charge note Patient Problems: Active and Suspected Problems (Last Updated 04/24/19 @ 09:37 by Heather Samaniego) COPD exacerbation (Acute) Chest pain (Acute) Objective: On physical exam General: Alert, Oriented x3, Cooperative HEENT: Atraumatic, PERRLA, EOMI, Normocephalic Neck: Supple, No JVD, Negative Carotid Bruits Lungs: Air entry diminished diffusely diminished, Rhonchi, on 2 L of oxygen. Cardiovascular: Regular rate, Regular Rhythm, Normal S1, Normal S2, No murmurs Abdomen: Bowel Sounds Present, Soft, Non Tender, Non-Distended Extremities: Capillary Refill Less than 3 Seconds, Edema Skin: No rashes, No breakdown Musculoskeletal: No Tenderness to Palpation of Joints or Extremities, Arthritic Changes Neurological: Cranial nerves II-XII grossly intact, Deep Tendon Reflexes 2+/4 and Symmetrical, Neuro grossly intact Psych/Mental Status: Normal Affect, Appropriate - Physical Exam Vitals/I&O's: Vital Signs Temp Pulse Resp BP Pulse Ox 98.5 F 92 18 132/80 H 94 06/14/19 09:27 06/14/19 09:27 06/14/19 09:27 06/14/19 09:27 06/14/19 09:27 Oxygen Flow Rate (L/min) 2 Oxygen Delivery Method Room Air Weight: 196 lb 6.91 oz Body Mass Index (BMI) 30.7 Intake and Output for Last 24 Hours 06/12/19 06/13/19 06/14/19 23:59 23:59 23:59 Intake Total 1220.0 / 1220.0 2481.5 / 2481.5 120 / 120 Output Total 250 / 250 320 / 320 Balance 970.0 / 970.0 2161.5 / 2161.5 120 / 120 Microbiology Past 72 Hours 06/12/19 20:40 Mucosa - Nasopharyngeal Respiratory Panel (PCR) - Final Rhinovirus 06/12/19 22:40 Urine, Clean Catch Streptococcus pneumoniae Antigen (M - Final 06/12/19 22:40 Urine, Clean Catch Legionella Antigen - Final Laboratory Results 06/13/19 11:41: Specimen Type ART, Sample Site R Brachial, pH 7.41, Bicarbonate Actual 25.0, POC Total CO2 26, Base Excess 0, O2 Saturation 92 L, ABG pCO2 39.5, ABG pO2 64 L, Omar Test NA, O2 Delivery Device Nasal Can, Liter Flow 2.0, Blood Gas Notified Whom HOSP MD, Blood Gas Notified Time 1145 Current Medications Acetaminophen (Tylenol) 650 mg PO Q6H PRN PRN PRN Reason: Pain Score 1-10/Temp > 100.7 F Last Admin: 06/13/19 15:16 Dose: 650 mg Documented by: Al Hydroxide/Mg Hydroxide (Mylanta Ii) 15 ml PO Q4H PRN PRN PRN Reason: DYSPEPSIA Last Admin: 06/13/19 22:20 Dose: 15 ml Documented by: Albuterol Sulfate (Ventolin Aerosols) 2.5 mg INHALATION Q2H PRN PRN PRN Reason: SHORTNESS OF BREATH Albuterol/Ipratropium (Duoneb) 3 ml INHALATION Q4H.RT [facility] Last Admin: 06/14/19 07:28 Dose: 3 ml Documented by: Amlodipine Besylate (Norvasc) 10 mg PO DAILY [facility] Last Admin: 06/14/19 09:36 Dose: 10 mg Documented by: Atorvastatin Calcium (Lipitor) 40 mg PO QHS [facility] Last Admin: 06/13/19 21:33 Dose: 40 mg Documented by: Bupropion HCl (Wellbutrin Sr (150mg Tablets)) 150 mg PO DAILY [facility] Last Admin: 06/14/19 09:35 Dose: 150 mg Documented by: Doxycycline Monohydrate (Doxycycline) 100 mg PO BID [facility] Last Admin: 06/14/19 09:36 Dose: 100 mg Documented by: Enoxaparin Sodium (Lovenox) 40 mg SC DAILY [facility] Last Admin: 06/14/19 09:35 Dose: 40 mg Documented by: Glucagon () 1 mg IM .X1 PRN PRN Reason: Hypoglycemia Hydrochlorothiazide (Hctz) 25 mg PO DAILY [facility] Last Admin: 06/14/19 09:36 Dose: 25 mg Documented by: Hydroxyzine Pamoate (Vistaril Pamoate Capsule) 50 mg PO Q6H PRN PRN PRN Reason: anxiety Dextrose (Dextrose 10%-Water) 250 mls @ 999 mls/hr IV .Q16M PRN; Protocol PRN Reason: HYPOGLYCEMIA Sodium Chloride () 250 mls @ 15 mls/hr IV .[id number] PRN PRN Reason: Saline Flush Methylprednisolone (Solu-Medrol) 40 mg IV Q8 [facility] Last Admin: 06/14/19 05:58 Dose: 40 mg Documented by: Mirtazapine (Remeron) 15 mg PO QHS [facility] Last Admin: 06/13/19 21:34 Dose: 15 mg Documented by: Morphine Sulfate () 2 mg IV Q3H PRN PRN PRN Reason: Pain Score 6-10/10 Nitroglycerin (Nitrostat) 0.4 mg SUBLINGUAL Q5M PRN PRN Reason: CARDIAC/CHEST PAIN Oxycodone HCl (Oxyir) 5 mg PO Q4H PRN PRN PRN Reason: Pain Score 4-5/10 Last Admin: 06/13/19 21:35 Dose: 5 mg Documented by: Pantoprazole Sodium (Protonix) 20 mg PO BID [facility] Last Admin: 03/14/20 09:36 Dose: 20 mg Documented by: Polyethylene Glycol (Miralax) 17 gm PO DAILY [facility] Last Admin: 06/14/19 09:36 Dose: 17 gm Documented by: Pramipexole Dihydrochloride (Mirapex) 0.25 mg PO QHS [facility] Last Admin: 06/13/19 21:33 Dose: 0.25 mg Documented by: Prochlorperazine Edisylate (Compazine Iv) 5 mg IV Q4H PRN PRN PRN Reason: Breakthrough Nausea/Vomiting Last Admin: 06/13/19 21:41 Dose: 5 mg Documented by: Quetiapine Fumarate (Seroquel) 50 mg PO DAILY [facility] Last Admin: 06/14/19 09:35 Dose: 50 mg Documented by: Quetiapine Fumarate (Seroquel) 200 mg PO QHS [facility] Last Admin: 06/13/19 21:34 Dose: 200 mg Documented by: Senna/Docusate Sodium (Senokot-S, Marie-Colace) 2 tablet PO BID PRN PRN PRN Reason: Constipation Sodium Chloride () 10 - 40 ml IV UD PRN PRN Reason: SALINE FLUSH Last Admin: 06/14/19 05:58 Dose: 10 ml Documented by: Home Medications: Medications to take at Discharge albuterol sulfate 90 mcg/actuation aerosol inhaler 2 puff INHALATION Q4H PRN #1 device 12/05/18 bupropion HCl 150 mg tablet,12 hr sustained-release 150 mg PO DAILY 12/05/18 hydroxyzine pamoate 50 mg capsule 50 mg PO Q6H 12/05/18 omeprazole 40 mg capsule,delayed release 40 mg PO DAILY 12/05/18 quetiapine 50 mg tablet 50 mg PO DAILY tab 12/05/18 Fluticasone/Umeclidin/Vilanter [Trelegy Ellipta 100-62.5-25] 1 puff IH QHS 01/13/19 Mirtazapine [Remeron] 15 mg PO QHS 01/13/19 amlodipine 10 mg tablet 10 mg PO DAILY 04/24/19 hydrochlorothiazide 25 mg tablet 25 mg PO DAILY 04/24/19 Icosapent Ethyl [Vascepa] 2 gm PO BID 06/12/19 Quetiapine Fumarate [Seroquel] 200 mg PO QHS 06/12/19 Ropinirole HCl [Requip] 0.5 mg PO QHS 06/12/19 Atorvastatin Calcium [Lipitor] 40 mg PO QHS #30 tab 06/14/19 Doxycycline 100 mg PO BID #10 cap 06/14/19 Prednisone 10 mg PO DAILY #30 tab 06/14/19 Following Prescrptions Were Given to Patient: Doxycycline 100 mg PO BID #10 cap Transmission Status: Received by [place] [id number] Atorvastatin Calcium [Lipitor] 40 mg PO QHS #30 tab Transmission Status: Received by [facility] [id number] Prednisone 10 mg PO DAILY #30 tab Transmission Status: Received by [facility] [id number] Primary Care Physician: Chris Weir MD [Primary Care Provider] - Medical Necessity - Tobacco Use Smoking Status: Current every day smoker Meaningful Use Info Meaningful Use Diagnoses (Choose all that apply): None applicable Inpatient E&M: 53691 [facility] Hosp
--- NOTE | 2019-06-14 10:54 | PCM.DC ---
- Discharge Diagnoses Current Active Problems: Current Active and Chronic Problems (Last Updated 04/24/19 @ 09:37 by Heather Samaniego) COPD exacerbation (Acute) Chest pain (Acute) You will use the following diet at home:: Cardiac Your food should be the consistency of: Regular Discharge Activity: May Not Drive - for 1 week or until sees PCP Weight Bearing Status: Weight bearing as tolerated Call your doctor if you observe: Fever of 101 or Higher, Numbness or Tingling, Inability to urinate, Inability to have a bowel movement, Shortness of breath, Dizziness, Fainting spells, Chest pain, Prolonged hiccoughing, Increased palpitations (irregular heartbeat), Calf discomfort, Uncontrolled pain Allergies/Adverse Reactions: Allergies No Known Allergies Allergy (Verified 04/24/19 09:35) Medications to take at Discharge albuterol sulfate 90 mcg/actuation aerosol inhaler 2 puff INHALATION Q4H PRN #1 device 12/05/18 bupropion HCl 150 mg tablet,12 hr sustained-release 150 mg PO DAILY 12/05/18 hydroxyzine pamoate 50 mg capsule 50 mg PO Q6H 12/05/18 omeprazole 40 mg capsule,delayed release 40 mg PO DAILY 12/05/18 quetiapine 50 mg tablet 50 mg PO DAILY tab 12/05/18 Fluticasone/Umeclidin/Vilanter [Trelegy Ellipta 100-62.5-25] 1 puff IH QHS 01/13/19 Mirtazapine [Remeron] 15 mg PO QHS 01/13/19 amlodipine 10 mg tablet 10 mg PO DAILY 04/24/19 hydrochlorothiazide 25 mg tablet 25 mg PO DAILY 04/24/19 Icosapent Ethyl [Vascepa] 2 gm PO BID 06/12/19 Quetiapine Fumarate [Seroquel] 200 mg PO QHS 06/12/19 Ropinirole HCl [Requip] 0.5 mg PO QHS 06/12/19 Atorvastatin Calcium [Lipitor] 40 mg PO QHS #30 tab 06/14/19 Doxycycline 100 mg PO BID #10 cap 06/14/19 Prednisone 10 mg PO DAILY #30 tab 06/14/19 The following prescriptions were given: Doxycycline 100 mg PO BID #10 cap Transmission Status: Pending to [facility] - [id number] Atorvastatin Calcium [Lipitor] 40 mg PO QHS #30 tab Transmission Status: Pending to [facility] - [id number] Prednisone 10 mg PO DAILY #30 tab Transmission Status: Pending to [facility] [address] Primary Care Physician: Chris Weir MD [Primary Care Provider] - Please follow up with your Primary Care Physician in: IN 1-2 WEEK Test Results: Test results from this visit will be discussed in further detail at your follow-up appointment, if applicable. Please Follow Up With: Shaheen Keller, When: Marcela Kramer in 2 weeks
--- NOTE | 2019-06-17 15:23 | CASEMGMT ---
DC DATE: 06.14.2019 DC DISPOSITION: COPD DC DIAGNOSIS: Chest pain LACE/STRATA: 02/02 F/U APPTS MADE PRIOR TO DC: no (dc'd on the weekend) PRESCRIPTIONS ACQUIRED BY PT: unknown Attempted call to phone. No answer and message machine did not have name identifier. Sharda CLARKE RN ACM
== END 2019-06-14 19:59 | disposition home or self-care (01) | DRG 192 ==
LOC: ED 18:50 → PCU 19:17
PROVIDERS: Admitting Provider Internal Medicine; Emergency Provider Emergency Medicine; PCP Family Medicine; Visit Provider Internal Medicine
DX: J44.1 Chronic obstructive pulmonary disease with (acute) exacerbation (principal); J06.9 Acute upper respiratory infection, unspecified; B97.89 Other viral agents as the cause of diseases classified elsewhere; G47.33 Obstructive sleep apnea (adult) (pediatric); F31.9 Bipolar disorder, unspecified; F17.210 Nicotine dependence, cigarettes, uncomplicated; E78.5 Hyperlipidemia, unspecified; M06.9 Rheumatoid arthritis, unspecified; R07.89 Other chest pain; I10 Essential (primary) hypertension; K21.9 Gastro-esophageal reflux disease without esophagitis; Z91.19 Patient's noncompliance with other medical treatment and regimen; Z87.19 Personal history of other diseases of the digestive system
CPT/HCPCS: 36415; 36600; 71046; 80048; 80061; 82803; 83735; 84443; 84484; 85025; 87449; 87633; 93005; 94003; 94640; 99251; 99285; 99406; J7030; A4216; G0463

== ENCOUNTER → 2019-06-20 07:42 | Outpatient (CLI) | payer MEDICARE, SELFPAY ==
[2019-06-12 20:15] VITALS: BMI 30.7
--- NOTE | 2019-06-20 07:43 | CT_ITS ---
STUDY: CT CHEST WITH CONTRAST REASON FOR EXAM: Male, 59 years old. LUNG NODULE. Hx of COPD and HTN-rx controlled. RADIATION DOSAGE (If Supplied By Facility): CTDIvol = ( 24.45 ) mGy, DLP = ( 599.22 ) mGycm TECHNIQUE: Transaxial imaging was performed following intravenous administration of Optiray 320 100ml. Individualized dose optimization techniques were used for this CT. COMPARISON: Comparison is made with the prior examination in December 19, 2018. FINDINGS: Stable 8 mm x 9.6 mm nodule in the medial aspect of the superior segment of the left lower lobe adjacent to the aorta. This is seen on axial image #49. Findings suggestive of a focal area of scarring in the posterior aspect of the lingular segment of the left upper lobe adjacent to the left major fissure. This presently measures 2.4 cm x 1.7 cm. There is no demonstrated pleural abnormality. There are calcifications of the coronary arteries. Normal mediastinum. Normal hilar regions. Normal enhanced pulmonary arteries. There is atherosclerotic calcification of the aortic arch . There are degenerative changes of the thoracic spine. Deformity of the right ninth rib laterally in keeping with healed fracture. Small hiatal hernia. CT/Chest WITH Contrast IMPRESSION: Stable examination. Electronically Signed: Rahul Plunkett, at 8:27 EDT , Service support ,
== END ==
LOC: CT 07:43
PROVIDERS: PCP Family Medicine; Referring Provider Nurse Practitioner Acute Care; Visit Provider Nurse Practitioner Acute Care
DX: R91.1 Solitary pulmonary nodule (principal)
CPT/HCPCS: 71260; Q9967